=== PATIENT | male | born 1945 | race Caucasian/White ===

== ENCOUNTER 2024-10-06 10:51 | Outpatient (AMB) | payer MEDICARE, SELFPAY ==
--- OUTSIDE RECORDS SUMMARY | 2024-10-06 11:41 | XMS_ITS | Clinical Summary ---
Author Organization [facility] [employer] [facility] lin Address [address] [facility] [place] [address] Care Team Providers Care Conservation Planner Name Role Phone Pcp, No Primary Care Provider [phone] Allergies No known active allergies Medications ramipriL (ALTACE) 5 MG capsule Take 1 capsule (5 mg total) by mouth 10/18/2023 Active Social History Tobacco Use Types Packs/Day Years Used Date Smoking Tobacco: Never Smokeless Tobacco: Never Tobacco Cessation:Counseling Given: Not Answered Sex and Gender Information Value Date Recorded Sex Assigned at Not on file Legal Sex Male 8:33 AM EST Gender Identity Not on file Sexual Orientation Not on file Last Filed Vital Signs Vital Sign Reading Time Taken Comments Blood Pressure 122/78 06/13/2024 9:08 AM EST Pulse 98 06/13/2024 9:08 AM EST Temperature 35.8 ??C (96.4 ??F) 06/13/2024 9:08 AM ES T Respiratory Rate 16 06/13/2024 9:08 AM EST Oxygen Saturation 99% 06/13/2024 9:08 AM EST Inhaled Oxygen Concentration - - Weight 109 kg (240 lb) 06/13/2024 9:08 AM EST Height 182.9 cm (6') 06/13/2024 9:08 AM EST Body Mass Index 32.55 06/13/2024 9:08 AM EST Plan of Treatment Health Maintenance Due Date Last Done Comments Depression: Screening Annual ly using PHQ-2/9 in Adults 18 yrs or above (or HM Modifier)([facility]) 12/28/1963 SDOH Screening Reminder: Adriana torres for all adults ([facility]) [birth year]28/1963 Zoster/Shingles Vaccine Seri es Screening: Adults aged 18+ yrs (or HM Modifiers)([facility]) (1 of 2) 12/28/1993 RSV Vaccines (1 - 1-dose 75+ series) 12/28/2018 COVID-19 Vaccine Screening: Initial Series and Booster Status ([facility]) ( - 2023- season) 2024 07/16/2020, 06/25/2020 Flu Vaccination: Ages 65+: Y early High Dose Recommended (or Modifier)([facility]) 12/08/2024 05/15/2022, 03/06/2019, 02/14/2018, Additional history exists DTaP/Tdap/Td Vaccines ([facility]) (3 - Td or Tdap) 09/23/2030 09/23/2020, 10/22/2010 Pneumococcal Vaccination Screening: Patients 50+ yrs of age ([facility]) Completed 12/26/2015, 10/22/2010 Medical Devices Not on file Care Teams Conservation Planner Relationship Specialty Start Date End Date Pcp, No PCP - General Family Medicine 06/13/24
--- NOTE | 2024-10-06 11:46 | A.SPINEOV_ITS ---
Intake Visit Reasons: parasthesia of both hands Intake Note: Mr. Mendoza is here today c/o neck pain and possible carpal tunnel. Neurophysiology Tech Required: No Assessment & Plan Assessment & Plan (1) Cervical spondylosis with myelopathy: Code(s): M47.12 - Other spondylosis with myelopathy, cervical region Category: Medical Plan: Dear colleague Thank you for referring Manuel Mendoza to the office today with a chief complaint of progressive bilateral hand numbness. HPI: This 78-year-old male is coming in complaining of predominantly right- sided hand numbness. Specifically has constant numbness of his fingertips and tingling in the palm of his hand that starts at the hand and then radiates up to his forearm and upper arm. He drops objects. This started approximately 6-8 months ago. The left side is starting as well. He denies neck pain. He is status post anterior diskectomy and fusion in the past for cervical myelopathy and carpal tunnel release bilaterally. On further questioning, he does have increasing balance problems and intermittent numbness under his feet. An EMG w as done that shows carpal tunnel syndrome of the right hand. He also mentioned polyneuropathy. PMH: Hypertension, cholecystectomy, bilateral carpal tunnel release, cervical fusion. Medications: Ramipril Allergies: NKDA Social history: . Lives with his . 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 Nonsmoker Physical Exam: Pleasant male. There is hypoesthesia of all the fingertips on the right side. Tinel is negative. Wrist flexion produces tingling in the wrist region. Motor exam is 5/5 throughout. No pathological reflexes Radiological Studies: None available Impression/Plan: This 78-year-old gentleman is suffering from progressive hand numbness with the right side is more affected than the left side. Differential diagnosis is carpal tunnel versus cervical myelopathy. I would like to obtain an MRI of the cervical spine based on his history to rule out spinal cord compression. If this comes back negative then we would do a re-exploration of the median nerve on the right side. Thank you for allowing me to participate in your patients care. total time spent was 50 minutes in counseling ,coordination of plan, personal review of imaging, surgical decision making and subsequent plan Malik Cevallos MD, PhD Spine Fellowship Trained Neurosurgeon Director, [facility] [place] [facility] Orders: Orders MR cervical spine wo con Today M47.12 - Other spondylosis with myelopathy, cervical region Coding Level of Care Code New Pt Level 4 (50116) Diagnoses Cervical spondylosis with myelopathy M47.12
== END 2024-10-06 12:07 | disposition home or self-care (01) ==
LOC: HO.HNS 10:51
PROVIDERS: Visit Provider Neurological Surgery
DX: M47.12 Other spondylosis with myelopathy, cervical region (principal)
CPT/HCPCS: 99204

== ENCOUNTER → 2024-10-06 10:51 | Outpatient (BNVA) | payer MEDICARE, SELFPAY | PROVIDERS: Visit Provider Neurological Surgery | DX: M47.12 Other spondylosis with myelopathy, cervical region (principal) | CPT/HCPCS: 99202 ==

== ENCOUNTER 2024-10-27 12:56 | Outpatient (REF) | payer MEDICARE, SELFPAY ==
--- NOTE | ~2024-10-27 | MR_ITS ---
EXAM: MR cervical spine without contrast TECHNIQUE: Multiplanar multisequence imaging through the cervical spine was performed from the base of the skull through at least T1. INDICATION: Spondylosis with myelopathy PRIOR: None FINDINGS: Skull Base: There is no tonsillar ectopia. Cranialcervical junction is intact. Cord: There is no abnormal cord signal or hydrosyringomyelia. Marrow and end-plates: Metal hardware is noted anteriorly fusing C4-5 and C5-6. Alignment: C4-5 demonstrates grade 1 anterolisthesis. There is reversal cervical lordosis. Soft tissues: There are joint effusions in the facets of C3-4 with adjacent soft tissue edema, greater on the left. There is a subchondral degenerative cyst in the left inferior facet of C2 and adjacent left superior facet C3 C2-3: There is no disc bulge, herniation, spinal stenosis, or foraminal narrowing. C3-4: Anterolisthesis results in flattening of the ventral cord and moderate spinal stenosis. There is moderate right and moderate to severe left foraminal narrowing. C4-5: Surgically fused. No spinal stenosis or foraminal narrowing. C5-6: Surgically fused with mild bony spinal stenosis. Facet osteophytes subtly narrows the right neural foramen. Osteophytes moderately narrow the left. C6-7: Mild disc bulge does not narrow the spinal canal. There is no foraminal narrowing. C7-T1: There is no disc bulge, herniation, spinal stenosis, or foraminal narrowing. MR/MR cervical spine wo con IMPRESSION: Anterior fusion C3-4 and C4-5. There is evidence of facet arthropathy and synovitis on the left at C2-3. Reversal cervical lordosis could be related to degenerative disc disease, positioning, idiopathic, or muscle spasms. C3-4: Anterolisthesis results in flattening of the ventral cord and moderate spinal stenosis. There is moderate right and moderate to severe left foraminal narrowing. C5-6: Surgically fused with mild bony spinal stenosis. Osteophytes moderately narrows the left neural foramen. Electronically signed by: Brian Reece MD 10/27/2024 03:16 PM EDT
--- NOTE | ~2024-10-27 | XR_ITS ---
EXAM: Three-view orbits, x-ray Technique: Kelly view x-rays, upward gaze and downward gaze and lateral view Indication: MRI screening for metal. Prior: None FINDINGS: There is no sign of of an intraorbital or intracranial metallic foreign body Dental hardware is present. XR/XR pre mri screening IMPRESSION: There is no absolute contraindication to MRI apparent on the x-ray. Electronically signed by: Brian Reece MD 10/27/2024 01:33 PM EDT
--- OUTSIDE RECORDS SUMMARY | 2024-10-27 12:58 | XMS_ITS | Clinical Summary ---
Author Organization [facility] [employer] [facility] lin Address [address] [facility] [place] [address] Care Team Providers Care Ferryboat Operator Cable Name Role Phone Pcp, No Primary Care Provider [phone] Allergies No known active allergies Medications ramipriL [...] 98 06/13/2024 9:08 AM EST Temperature 35.8 C (96.4 F) 06/13/2024 9:08 AM EST Respiratory Rate 16 06/13/2024 9:08 AM EST [...] Adults 18 yrs or above (or HM Modifier)([facility]) 12/28/1963 SDOH Screening Reminder: Adriana torres for all adults ([facility]) 12/28/1963 Zoster/Shingles Vaccine Seri es Screening: Adults aged 18+ yrs (or HM Modifiers)([facility]) (1 of 2) 12/28/1993 RSV Vaccines (1 - 1-dose 75+ series) 12/28/2018 COVID-19 Vaccine Screening: Initial Series and Booster Status ([facility]) ( - 2023- season) 2024 07/16/2020, 06/25/2020 Flu Vaccination: Ages 65+: Y early High Dose Recommended (or Modifier)([facility]) 12/08/2024 05/15/2022, 03/06/2019, 02/14/2018, Additional history exists DTaP/Tdap/Td Vaccines ([facility]) (3 - Td or Tdap) 09/23/2030 09/23/2020, 10/22/2010 Pneumococcal Vaccination Screening: Patients 50+ yrs of age ([facility]) Completed 12/26/2015, 10/22/2010 Medical Devices Not on file Care Teams Ferryboat Operator Cable Relationship Specialty Start Date End Date Pcp, No PCP - General Family Medicine 06/13/24
== END 2024-10-27 12:57 | disposition home or self-care (01) ==
LOC: HO.MRI 12:56
PROVIDERS: Visit Provider Neurological Surgery
DX: M17.12 Unilateral primary osteoarthritis, left knee (principal)
CPT/HCPCS: 72141; 99212

== ENCOUNTER → 2024-10-27 12:59 | Outpatient (BNV) | payer MEDICARE, SELFPAY | PROVIDERS: Visit Provider Radiology Diagnostic Radiology | DX: M43.12 Spondylolisthesis, cervical region (principal) | CPT/HCPCS: 72050; 72141 ==

== ENCOUNTER 2024-10-27 15:02 | Outpatient (AMB) | payer MEDICARE, SELFPAY ==
--- NOTE | 2024-10-27 15:11 | HO.SPINEOV ---
Intake Visit Reasons: f/up MRI Intake Note: Mr. Kelly Conley is here today to F/u after MRI. Physician Obstetrician Required: No Assessment & Plan Assessment & Plan (1) Cervical spondylosis with myelopathy: Code(s): M47.12 - Other spondylosis with myelopathy, cervical region Category: Medical Plan: Dear colleague, On 10/27/2024, I saw for follow-up Manuel Mendoza to discuss MRI results of the cervical spine. In summary, this patient is suffering from neck pain and progressive bilateral hand numbness with the right side is more affected than the left side. The left side is getting worse. He has constant numbness of his fingertips and when he puts his neck in certain positions he can aggravate the numbness in his hands going up his arms. He did have bilateral carpal tunnel release in the past. He is now also complaining of numbness under his feet that started a month ago. He had an MRI of the cervical spine done today which shows the anterolisthesis C3-C4 causing a cervical deformity and moderate spinal cord compression. A dynamic cervical x-ray obtained today shows the anterolisthesis C3-C4 above the previous C4-C6 fusion, which reduces with extension. This patient is suffering from cervical myelopathy related to the anterolisthesis with spinal cord compression C3-C4. I offered him an anterior diskectomy and fusion of this level. I spent 40 minutes in his consult reviewing imaging and discussing plan of care. Malik Cevallos MD, PhD Spine Fellowship Trained Neurosurgeon Director, [facility] [place] [facility] Orders: Orders XR cervical spine 4V Today M47.12 - Other spondylosis with myelopathy, cervical region Coding Level of Care Code Est Pt Level 5 (22477) Diagnoses Cervical spondylosis with myelopathy M47.12
== END 2024-10-27 16:02 | disposition home or self-care (01) ==
PROVIDERS: Visit Provider Neurological Surgery
DX: M47.12 Other spondylosis with myelopathy, cervical region (principal)
CPT/HCPCS: 99215

== ENCOUNTER 2024-10-27 15:33 | Outpatient (REF) | payer MEDICARE, SELFPAY ==
--- NOTE | ~2024-10-27 | XR_ITS ---
EXAMINATION: XR CERVICAL SPINE CLINICAL INFORMATION: M47.12 - Other spondylosis with myelopathy, cervical region COMPARISON: None available. FINDINGS: There is mild reversal of the normal cervical lordosis. No fractures are identified. There is no prevertebral soft tissue swelling. There is anterior fusion of C4-5 and C5-6. There is limited motion on extension. C2-3: Unremarkable. Facet sclerosis and osteophytes. C3-4: There is grade 1 anterolisthesis without instability. Facet sclerosis and osteophytes. C4-5: Fused. Facet sclerosis and osteophytes. C5-6: Fused. Minimal facet osteophytes. C6-7: No instability C7-T1: Unremarkable. XR/XR cervical spine 4V IMPRESSION: There is mild reversal of cervical lordosis. This can be related to degenerative changes, positioning, muscle spasm, or posterior soft tissue injury. C3-4: Grade 1 anterolisthesis without instability. C4-5 and C5-6 anterior fusion. Electronically signed by: Brian Reece MD 10/27/2024 04:27 PM EDT
== END 2024-10-27 15:34 | disposition home or self-care (01) ==
LOC: HO.HOSX 15:33
PROVIDERS: Visit Provider Neurological Surgery
DX: M47.12 Other spondylosis with myelopathy, cervical region (principal)
CPT/HCPCS: 72050

== ENCOUNTER → 2024-11-14 13:50 | Outpatient (BNV) | payer MEDICARE, SELFPAY | PROVIDERS: Visit Provider Internal Medicine Cardiovascular Disease | DX: I44.0 Atrioventricular block, first degree (principal) | CPT/HCPCS: 93010 ==

== ENCOUNTER 2024-12-07 09:42 | Outpatient (AMB) | payer MEDICARE, SELFPAY ==
[2024-12-07 09:53] VITALS: BP 124/68; PULSE 68; BMI 31.6
--- NOTE | 2024-12-07 09:53 | A.OFFVIS_ITS ---
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 He underwent a preoperative EKG that showed concern for inferior infarction and hence he has been referred here. Patient himself denies any previous cardiac history. No known coronary disease, myocardial infarction or cardiomyopathy or in fact anything along those lines. 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 Within limits of his activity, he has not noticed any clear-cut cardiac symptoms. Has hypertension on medications. He is walking with a cane. [facility] Medical History (Updated 12/07/24 @ 10:23 by Bar Hooper MD) CKD (chronic kidney disease) Arthritis HTN (hypertension) Surgical History (Updated 11/14/24 @ 13:12 by Lawanda Miller RN) Hx of arthroscopic knee surgery Hx of cholecystectomy Hx of cervical spine surgery History of bilateral carpal tunnel release History of right knee joint replacement H/O colonoscopy Family History (Updated 12/07/24 @ 09:59 by Paige Chamberlain) Mother No problems noted. Father No problems noted. Social History (Updated 12/07/24 @ 10:00 by Paige Chamberlain) Are you a primary patient care manager to a significant other at home: No Do you presently have visiting nurse or other home services: No Alcohol intake: never Patient Tobacco Use Status: Never used Tobacco Review of Systems Const Denies weakness ENT Denies dizziness Card Denies chest pain, Denies chest pain with activity, Denies syncope, Denies rapid heart rate, Denies pedal edema, Denies edema, Denies leg edema, Denies lightheadedness, Denies palpitations, Denies dyspnea, Denies dyspnea on exertion and Denies orthopnea Resp Denies cough, Denies dyspnea and Denies dyspnea on exertion GI Denies hematochezia and Denies change in stool character Musc Denies abnormal gait, Denies muscle cramps, Denies muscle weakness, Denies numbness, Denies radiating pain into limb and Denies tingling Neuro Denies abnormal gait, Denies dizziness, Denies syncope, Denies numbness, Denies tingling and Denies weakness Endo Denies palpitations Physical Exam Vital Signs: Last Vital Signs Pulse 68 12/07/24 09:53 BP 124/68 12/07/24 09:53 BMI result Body Mass Index 31.6 Const General: comfortable and no acute distress Orientation/consciousness: patient oriented x3 HEENT Other: Unremarkable Head: Yes normal to inspection Neck Neck: Yes normal visual inspection Chest Chest palpation & inspection: normal inspection of the chest Resp Auscultation: clear to auscultation bilaterally Cardio Palpation: normal PMI Heart sounds: S1 normal heart sound present, S2 normal heart sound present, no gallops, no murmurs and no rubs GI Palpation (GI): Soft to palpation Back/Spine/Pelvis Other: unremarkable Skin General skin exam: no rashes or lesions noted Neuro General: patient oriented x3 Extrem General: Yes normal to inspection Psych Mental Status: mental status grossly normal Assessment & Plan Assessment & Plan (1) Preoperative cardiovascular examination: Code(s): Z01.810 - Encounter for preprocedural cardiovascular examination Category: Medical (2) Abnormal electrocardiogram [ECG] [EKG]: Code(s): R94.31 - Abnormal electrocardiogram [ECG] [EKG] Category: Medical Plan In the recent EKG, underlying rhythm is sinus at 86/Min; cannot exclude old inferior infarct; prolonged FL at 212 milliseconds; normal corrected QT. EKG findings could be related to just body habitus, but cannot exclude previous infarct either. Recommend an echocardiogram and pharmacological stress perfusion imaging study for further evaluation. He is not going to be able to exercise on the treadmill as he is walking with a cane. Once these are reviewed, can make an addendum. Discussion Notes I discussed with the patient the need for further cardiac evaluation to ensure safe surgical intervention for his cervical radiculopathy. We reviewed the EKG findings and the plan for a heart ultrasound and stress test to clarify any potential cardiac issues. The patient was informed about the importance of managing hypertension and monitoring for any new symptoms. Patient was informed and verbally consented to the use of an ambient scribe for clinic note documentation during this visit. Orders: Orders CA echo transthoracic complete Today R94.31 - Abnormal electrocardiogram [ECG] [EKG], Z01.810 - Encounter for preprocedural cardiovascular examination CA lexiscan stress w joe Today R94.31 - Abnormal electrocardiogram [ECG] [EKG], Z01.810 - Encounter for preprocedural cardiovascular examination NM cardiolite stress test Today R94.31 - Abnormal electrocardiogram [ECG] [EKG], Z01.810 - Encounter for preprocedural cardiovascular examination Patient Instructions: - Continue taking your blood pressure medication as prescribed. - Monitor for any new symptoms, especially chest pain or shortness of breath, and seek medical attention if they occur. - Follow up with the scheduled heart ultrasound and stress test. Coding Level of Care Code New Pt Level 4 (87455) Complex EM visit Add On G2211 Diagnoses Preoperative cardiovascular examination Z01.810 Abnormal electrocardiogram [ECG] [EKG] R94.31
--- OUTSIDE RECORDS SUMMARY | 2024-12-07 10:09 | XMS_ITS | Clinical Summary ---
Author Organization [facility] Address [address] [place] [address] Care Team Providers Care Relocation Specialist Name Role Phone Nazario Silva Primary Care Provider [phone] Allergies No known active allergies Medications * This document contains information received from the source organization and may not represent a complete record from that organization. No known medications Immunizations Immunization Administration Dates Next Due COVID-19, mRNA (Pfizer Pre F all 2022) Monovalent, 30 mcg/0.3 ml 07/16/2020,06/25/2020 Influenza,high dose seasonal,trivalent,PF (Fluzone HD) 03/06/2019,02/14/2018,07/01/2016,2014 PCV-13 12/26/2015 Td (adult), adsorbed 09/23/2020 Social History Tobacco Use Types Packs/Day Years Used Date Smoking Tobacco: Never Smokeless Tobacco: Never Tobacco Cessation:Counseling Given: Not Answered Alcohol Use Standard Drinks/Week Comments Not Asked 0 (1 standard drink = 0.6 oz pur e alcohol) Intimate Partner Violence Answer Date R ecorded Fear of Current or Ex-Partner Not on file Emotionally Abused Not on file 12/28/2022 Physically Abused Not on file 12/28/2022 Sexually Abused Not on file 12/28/2022 Feel Safe at Home Not on file 12/28/2022 Sex and Gender Information Value Date Recorded Sex Assigned at Not on file Legal Sex Male 8:08 PM EDT Gender Identity Not on file Sexual Orientation Not on file Last Filed Vital Signs Vital Sign Reading Time Taken Comments Blood Pressure 122/72 06/16/2022 10:23 AM EST Pulse 115 06/16/2022 10:23 AM EST Temperature - - Respiratory Rate - - Oxygen Saturation 99% 12/01/2021 8:09 AM EDT Inhaled Oxygen Concentration - - Weight 107 kg (235 lb) 06/16/2022 10:23 AM EST Height 177.8 cm (5' 10 ) 06/16/2022 10:23 AM EST Body Mass Index 33.72 06/16/2022 10:23 AM EST Plan of Treatment Health Maintenance Due Date Last Done Comments Zoster (Shingrix) (1 of 2) 12/28/1993 Pneumococcal 50+ years (2 of 2 - PCV20 or PCV21) 12/25/2016 12/26/2015 RSV (1 - 1-dose 75+ series) 12/28/2018 DTaP/Tdap/Td (1 - Tdap) 09/24/2020 09/23/2020 COVID-19 Vaccine (3 - season) 2024 07/16/2020, 06/25/2020 Influenza (#1) 2025 03/06/2019, 100 12/2017, 07/01/2016, Additional history exists HPV Vaccine (No Doses Required) Completed Hep A Aged Out No longer eligi ble based on patient's age to complete this topic Hep B Aged Out No longer eligi ble based on patient's age to complete this topic Hib Aged Out No longer eligi ble based on patient's age to complete this topic Meningococcal ACWY Aged Out No longer eligible based on patient's age to complete this topic Zoster (Zostavax) Discontinued Care Teams Relocation Specialist Relationship Specialty Start Date End Date Nazario Silva [facility] [place] [place] [address] PCP - General 07/08/09
--- OUTSIDE RECORDS SUMMARY | 2024-12-07 10:09 | XMS_ITS | Referral Summary ---
Author Organization [facility] Address [address] [place] [address] Care Team Providers [employer] Person Name Role Phone Luisa Otoole DO, Diana Primary Care Provider + Encounters Date Type Department Care Team Description 11/15/2024 7:51 AM EDT - 11/15/2024 11:59 PM EDT Hospital Encounter [facility] [address] [place] [address] Abnormal CAT scan Discharge Disposition: Home or Self Care (01) 11/15/2024 9:00 AM EDT Office Visit [facility] Orthopedic Department [address] [facility] [address] [place] [address] New Garcia MD Abnormal CT scan, pelvis (Primary Dx) 11/13/2024 Orders Only [address] Department [address] [place] [phone] Luisa Poonam V, DO Abnormal CAT scan (Primary Dx); Pain of left hip 11/13/[address] Practice Department [address] [place] [address] Luisa Poonam V, DO Follow-up 11/09/2024 11:00 AM EDT Follow-Up [address] Department [address] [place] [phone] Karlee Crump NP Hyperkalemia (Primary Dx); Bilateral hip pain; Abnormal CT scan, pelvis; 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) 11/06/2024 Telephone [facility] 255 [facility] Department [address] [place] [phone] Poonam Solis DO Request For Order(s) 09/19/[address] Department [address] [place] [phone] Poonam Solis DO 09/19/2024 11:00 AM EDT Office Visit [address] Department [address] [place] [address] Poonam Solis DO Medicare annual wellness visit, subsequent (Primary Dx); 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 8 capsule 5 Active Additional Information Patient not taking.Reported on 11/15/2024 ramipriL (ALTACE) 5 mg capsule TAKE 1 CAPSULE BY MOUTH ONCE DAILY 90 capsule 3 5 Active oxyCODONE (OXY-IR) 5 mg capsule Take 5 mg by mouth every 6 hours as needed for pain. 5 Active Active Problems Problem Noted Date Diagnosed Date Hyperkalemia 11/09/2024 Assessment & Plan (11/09/2024 1:46 PM EDT): ER records reviewed - k 5.2 - repeat basic Bilateral hip pain 11/09/2024 Assessment & Plan (11/09/2024 1:45 PM EDT): Seen at [facility] ER and admitted for abnormal CT concern for septic arthritis left hip, left hospital with 5 day supply of Oxycodone and advised to follow up with Ortho and have IR procedure, left hospital AMA, will request Urgent referral for Ortho at [facility] per patient request and advised to return to the ER with any worsening pain, fever or chills. Continues with Oxycodone for the pain. Abnormal CT scan, pelvis 11/09/2024 Assessment & Plan (11/09/2024 1:42 PM EDT): Admitted to [facility] ER and transferred to [facility] ER for back and hip pain, CT scan noted complex fluid collection in the right iliopsoas bursa with concern for septic hip with plan for inpatient IR procedure, WBC were not elevated, BP normal, was not admitted with sepsis, per patient he left AMA. Will request consult with Ortho at [facility] Urgently, discuss with Dr. Solis IR procedure and advised patient and if he has worsening back and hip pain, fever, chills to return to ER. Near syncope 09/30/2023 Assessment & Plan (07/10/2024 5:21 PM EST): Hx of near syncope, dehydration episode 09/2023. Discussed increasing oral hydration, PO intake. If symptoms return, discussed needing cardio and neuro workup. No recurrence of symptoms. Assessment & Plan (11/25/2023 4:17 PM EDT): Hx of near syncope, dehydration episode 09/2023. Discussed increasing oral hydration, PO intake. If symptoms return, discussed needing cardio and neuro workup. No recurrence of symptoms. Assessment & Plan (09/30/2023 9:34 AM EDT): Discussed increasing oral hydration, PO intake. If symptoms return, discussed needing cardio and neuro workup. Alarm signs and symptoms reviewed and when to seek emergency care. At low risk for fall 09/28/2023 Keratosis seborrheica 09/28/2023 Macrocytosis 09/28/2023 Other intervertebral disc degeneration, lumbar r egion 09/28/2023 Otic erythema 09/28/2023 Stiffness of right knee 09/28/2023 Anemia 05/27/2023 Benign prostatic hyperplasia 05/27/2023 Greater trochanteric bursitis of left hip 2023 Myofascial pain 05/27/2023 Elevated ferritin level 05/27/2023 Assessment & Plan (09/29/2024 4:31 PM EDT): Hx of elevated ferritin level, trending up at 853. Was referred to hematology for further management. Assessment & Plan (07/10/2024 5:21 PM EST): Hx of elevated ferritin level, trending up at 853. Was referred to hematology for further management. Assessment & Plan (11/25/2023 9:32 AM EDT): Hx of elevated ferritin level, trending lower. Continue to monitor. Assessment & Plan (09/30/2023 9:37 AM EDT): Hx of elevated ferritin level, trending lower. Continue to monitor. Assessment & Plan (05/27/2023 5:31 PM EST): Hx of elevated ferritin level. Recheck to trend along with iron studies. Hyperlipidemia 05/27/2023 Benign hypertension with stage 3b chronic kidney disease 05/27/2023 Assessment & Plan (09/29/2024 4:31 PM EDT): BP elevated. Home BP monitoring recommended. Continue ramipril 5 mg daily. Low sodium diet and regular exercise reviewed. We discussed if he were to dehydrated from a respiratory infection or other process to hold ramipril to prevent further dehydration. Nephrology referral. BP check in 3 months. Orders: Ambulatory referral to Nephrology; Future Assessment & Plan (09/19/2024 1:11 PM EDT): >>ASSESSMENT AND PLAN FOR BENIGN HYPERTENSION WITH STAGE 3B CHRONIC KIDNEY DISEASE (HCC) WRITTEN ON 07/10/2024 5:21 PM BY POONAM SOLIS V, DO BP stable. Continue ramipril 5 mg daily. Low sodium diet and regular exercise reviewed. We discussed if he were to dehydrated from a respiratory infection or other process to hold ramipril to prevent further dehydration. Orders: Microalbumin / creatinine, urine ratio (Lab Collect); Future Hemoglobin A1c; Future PTH, intact; Future >>ASSESSMENT AND PLAN FOR KIDNEY DISEASE, CHRONIC, STAGE III (MODERATE, EGFR 30- 59 ML/MIN) ([facility]) WRITTEN ON 07/10/2024 5:21 PM BY POONAM SOLIS V, DO Increasing renal impairement. GFR is 36, Cr baseline ~1.5. Recommend maintaining adequate hydration, avoid nephrotoxic agents. BP is well controlled. Continue ACEi. Referral to service car operator. Orders: Microalbumin / creatinine, urine ratio (Lab Collect); Future Basic metabolic panel; Future Hemoglobin A1c; Future PTH, intact; Future Assessment & Plan (09/19/2024 1:11 PM EDT): >>ASSESSMENT AND PLAN FOR BENIGN HYPERTENSION WITH STAGE 3B CHRONIC KIDNEY DISEASE ([facility]) WRITTEN ON 11/25/2023 9:28 AM BY POONAM SOLIS V, DO BP stable. Continue lisinopril 5 mg daily. Low sodium diet and regular exercise reviewed. >>ASSESSMENT AND PLAN FOR KIDNEY DISEASE, CHRONIC, STAGE III (MODERATE, EGFR 30- 59 ML/MIN) ([facility]) WRITTEN ON 11/25/2023 4:18 PM BY POONAM SOLIS V, DO Increasing renal impairement. GFR is 36, Cr baseline ~1.5. Recommend maintaining adequate hydration, avoid nephrotoxic agents. BP is well controlled. Continue ACEi. Referral to service car operator. Assessment & Plan (09/19/2024 1:11 PM EDT): >>ASSESSMENT AND PLAN FOR BENIGN HYPERTENSION WITH STAGE 3B CHRONIC KIDNEY DISEASE (HCC) WRITTEN ON 09/30/2023 9:34 AM BY POONAM SOLIS V, DO BP stable. Continue lisinopril 5 mg daily. Low sodium diet and regular exercise reviewed. >>ASSESSMENT AND PLAN FOR KIDNEY DISEASE, CHRONIC, STAGE III (MODERATE, EGFR 30- 59 ML/MIN) ([facility]) WRITTEN ON 09/30/2023 9:36 AM BY POONAM SOLIS V, DO Encourage hydration. Cr 1.5 at baseline. Continue to monitor. Assessment & Plan (05/27/2023 5:30 PM EST): BP stable. Continue lisinopril 5 mg daily. Low sodium diet and regular exercise reviewed. Labs ordered. BP check in 6 months. 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 Assessment & Plan (05/27/2023 5:32 PM EST): Diet and exercise modifications reviewed. Prediabetes 05/27/2023 Primary osteoarthritis of left hip 05/27/2023 S/P arthroscopy of right knee 05/27/2023 Primary osteoarthritis of left knee 05/27/2023 Statin intolerance 05/27/2023 Chronic cervical radiculopathy 05/27/2023 Stenosis, cervical spine 05/27/2023 Urethral stricture 05/27/2023 Abnormal urine findings 05/27/2023 Fibrosis of right knee joint 05/27/2023 Heterotopic calcification, postoperative 024 Carpal tunnel syndrome 06/20/2013 Resolved Problems Problem Noted Date Diagnosed Date Resolved Date Trapezius muscle spasm 09/28/202311/09 Rhinorrhea 09/28/2023 11/09/2024 Chronic pain of right knee 05/27/2023 0 05/27/2023 Constipation 05/27/2023 05/27/2023 Immunizations Immunization Administration Dates Next Due Influenza, High Dose Seasona l, Preservative Free 03/06/2019,02/14/2018,07/01/2016,03/01 Influenza, High Dose Seasona l, Quadrivalent PF 05/15/2022 Influenza, Unspecified 03/06/2019,2017,07/01/2016,03/01,03/01/2015,04/13/2014,05/25/2013 Pneumococcal Conjugate Vacci ne, 13 Valent 12/26/2015 Pneumococcal Polysaccharide Vaccine, 23 Valent 10/22/2010 Tetanus Toxoid, Reduced Diph theria Toxoid, and Acellular Pertussis Vaccine, Adsorbed 10/22/2010 Tetanus and Diphtheria Toxoi ds, Adsorbed, Preservative Free (2 Lf of Tetanus Toxoid and 2 Lf of Diphtheria Toxoid) 09/23/2020 Social History Tobacco Use Types Packs/Day Years Used Date Smoking Tobacco: Never Passive Smoke Exposure: Never Smokeless Tobacco: Never Tobacco Cessation:Counseling Given: Not Answered Comments:: Alcohol Use Standard Drinks/Week Comments Yes 0 (1 standard drink = 0.6 oz pur e alcohol) [facility] Utilities Answer Date Recorded In the past 12 months has th e [employer], gas, oil, or water [employer] threatened to shut off services in your home? No 07/10/2024 Hunger Vital Sign Answer Date Recorded Within the past 12 months, y ou worried that your food would run out before you got the money to buy more. Never true 07/11/19 25 Within the past 12 months, t he food you bought just didn't last and you didn't have money to get more. Never true 07/10/2024 Transportation Answer Date Recorded In the past 12 months, has l ack of reliable transportation kept you from medical appointments, meetings, work or from getting things needed for daily living? No 07/10/2024 Housing Answer Date Recorded Housing Risk Low 2 07/10/2024 Housing Risk Medium Not on file 07/10/2024 Housing Risk High Not on file 07/10/2024 What is your living situation today? [facility]AD[facility] 07/10/2024 Sex and Gender Information Value Date Recorded Sex Assigned at Male 05/18/2023 3:00 PM EST Legal Sex Male 12:13 AM EDT Gender Identity Male 05/31/2023 8:46 AM EST Sexual Orientation Not on file Last Filed Vital Signs Vital Sign Reading Time Taken Comments Blood Pressure 132/64 11/15/2024 9:09 AM EDT Pulse 75 11/09/2024 10:35 AM EDT Temperature 36.6 C (97.8 F) 11/15/2024 9:09 AM EDT Respiratory Rate - - Oxygen Saturation 97% 11/09/2024 10: 35 AM EDT Inhaled Oxygen Concentration - - Weight 106.1 kg (233 lb 12.8 oz) 11/15/2024 9:09 AM EDT Height 177.8 cm (5' 10 ) 11/09/2024 10: 35 AM EDT Body Mass Index 33.55 11/09/2024 10:35 AM EDT Plan of Treatment Upcoming Encounters Date Type Department Care Team (Late st Contact Info) Description 12/22/2024 10:00 AM EDT Follow-Up [facility] 255 [facility] Family Practice Department [address] [place] [address] Poonam Solis V, DO [address] [place] [address] Procedures * Due to [place] state law, this organization might not be sharing negative HIV tests. Procedure Name Priority Date/Time Associated Diagnosis Comments XR HIP LEFT 2+ VIEW W PELVIS Routine 11/15/2024 9:[address] scan, pelvis US GUIDED ASPIRATION OR INJECTION OF MAJOR JOINT OR BURSA STAT 11/15/2024 8:49 AM EDT Abnormal CAT scan NON-GYNECOLOGIC CYTOLOGY - [place] ONLY Routine 11/15/2024 8:49 AM EDT Abnormal CAT scan CRYSTALS, SYNOVIAL FLUID Routine 11/15/2024 8:49 AM EDT Abnormal CAT scan CELL COUNT W/DIFFERENTIAL, SYNOVIAL Routine 11/15/2024 8:49 AM EDT Abnormal CAT scan (DO NOT ORDER) ANAEROBIC CULTURE-QML Routine 11/15/2024 8:49 AM EDT Abnormal CAT scan AEROBIC CULTURE W/GRAM STAIN Routine 11/15/2024 8:49 AM EDT Abnormal CAT scan AEROBIC AND ANAEROBIC CULTURE W/GRAM STAIN Routine 11/15/2024 8:49 AM EDT Abnormal CAT scan MYCOBACTERIA/AFB CULTURE AND STAIN Routine 11/15/2024 8:49 AM EDT Abnormal CAT scan FUNGUS CULTURE W/STAIN Routine 11/15/2024 8:49 AM EDT Abnormal CAT scan PATHOLOGY - SCANNED 11/15/2024 EMG/ NCS/ NEUROMUSCULAR ULTRASOUND Routine 09/06/2024 9:35 AM EDT Numbness and tingling MICROALBUMIN, RANDOM URINE WITH CREATININE Routine 07/10/2024 12:49 PM EST Hypertension, unspecified type Stage 3b chronic kidney disease VITAMIN D, 25-HYDROXY, TOTAL, IMMUNOASSAY Routine 07/10/2024 11:44 AM EST Vitamin D deficiency PTH, INTACT (WITHOUT CALCIUM) Routine 07/10/2024 11:44 AM EST Hypertension, unspecified type Stage 3b chronic kidney disease BASIC METABOLIC PANEL Routine 07/10/2024 11:44 AM EST Stage 3b chronic kidney disease PHOSPHORUS Routine 11/25/2023 10:40 AM EDT Stage 3b chronic kidney disease CBC AUTO DIFFERENTIAL Routine 06/29/2023 8:54 AM EST Hyperlipidemia, unspecified hyperlipidemia type Healthcare maintenance from Last 3 Months or Most Recently Relevant to Health Maintenance Results * Due to [place] state law, this organization might not be sharing negative HIV tests. * XR Hip Left 2+ View W Pelvis (11/15/2024 9:17 AM EDT) Anatomical Region Laterality Modality Body, Pelvis, Hip Left Radiographic I maging Narrative 11/15/2024 2:07 PM EDT An AP pelvis and AP and lateral of his left hip looking at these films I see quite a bit of end-stage left-sided hip osteoarthritis with with the femoral head abutting up against the the acetabulum and peripheral osteophytes about the the femoral head you see this to a lesser degree over the of the right side on his lower lumbar spine you also see some significant osteophytes are most suggestive for flowing osteophytes consistent with potentially ankylosing spondylitis but I do not see that much in the way of sclerosis over his sacrum or iliac joints us New Garcia MD IMG XR PROCEDURES Final Re sult * US Guided Aspiration or Injection of Major Joint or Bursa (11/15/2024 8:49 AM EDT) Anatomical Region Laterality Modality Body N/A Ultrasound 11/15/2024 12:4 3 PM EDT Impressions 11/15/2024 12:45 PM EDT Impression: Completed US-guided aspiration of left hip fluid collection (iliopsoas bursa). No immediate compilations. If this radiology report contains a blank impression section, it is an incomplete radiology report. Please contact the interpreting radiologist or applicable radiology division as soon as possible to obtain the completed interpretation. Workstation ID: [id number] Narrative 11/15/2024 12:45 PM EDT Examination: Ultrasound-guided aspiration of left hip collection. History: Left hip fluid collection surrounding on outside CT. [employer] Level Game Designer(s): Kiran Zambrano MD; Operative report: Preparation: Procedure, risks, benefits alternatives were discussed with patient and written informed consent was obtained. Time-out was performed to verify patient identity and site of procedure. Targeting approach was finalized, the local area was prepped and draped in the usual sterile fashion. Local anesthetic was infiltrated. Procedure: Under ultrasound guidance a 20-gauge spinal needle was advanced into the fluid collection in the left hip (iliopsoas bursa). A total of 10 mL of clear fluid were aspirated. Samples were sent for microbiology, cell count and crystals. No immediate complications ensued. Ultrasound images were recorded and permanently stored. Myself, Dr. Zambrano, was present and performed the procedure. Resulting Agency Comment [id number] Procedure Note Kiran Zambrano MD - 11/15/2024 Examination: Ultrasound-guided aspiration of left hip collection. History: Left hip fluid collection surrounding on outside CT. Mid Level Game Designer(s): Kiran Zambrano MD; Operative report: Preparation: Procedure, risks, benefits alternatives were discussed withpatient and written informed consent was obtained. Time-out was performedto verify patient identity and site of procedure. Targeting approach wasfinalized, the local area was prepped and draped in the usual sterilefashion. Local anesthetic was infiltrated. Procedure: Under ultrasound guidance a 20-gauge spinal needle was advancedinto the fluid collection in the left hip (iliopsoas bursa). A total of10 mL of clear fluid were aspirated. Samples were sent for microbiology,cell count and crystals. No immediate complications ensued. Ultrasound images were recorded and permanently stored. Myself, Dr. Zambrano, was present and performed the procedure. IMPRESSION: Impression: Completed US-guided aspiration of left hip fluid collection (iliopsoasbursa). No immediate compilations. If this radiology report contains a blank impression section, it is anincomplete radiology report. Please contact the interpreting radiologistor applicable radiology division as soon as possible to obtain thecompleted interpretation. Workstation ID: [id number] us Poonam Immenhausen V, DO IMG US PROCEDURES Final Result * Non-Gynecologic Cytology - [place] only (11/15/2024 8:49 AM EDT) Non-Gynecologic Cytology Result SEE DETAILS 11/17/2024 12:00 AM EDT [facility] Comment: FINAL DIAGNOSIS Left hip, aspiration: Negative for malignancy. Comment: The specimen is acellular, consisting of proteinaceous material. Morena Clifford M.D. Electronic Signature: 11/17/2024 09:43 Screened by: MELVINA Erickson (ASCP) Clinical History R93.89, left hip aspiration Macroscopic Description Received fresh is 1 cc of clear yellow fluid from which a liquid based cyto-preparation and cell block is made. Grossing and technical work performed at [facility] ([facility], [address] [place] [id number]; ; [id number]; CLIA #[id number]) All professional pathology services performed at [facility] ([address] [place] [id number]; ; CLIA #[id number]) Note: Some or all of the tests utilized in this case may be laboratory developed tests (LDT's) and may use class I analyte specific reagents (ASR). These tests were developed for clinical purposes and their performance characteristics determined by [facility] on tissue fixed in 10% neutral buffered formalin. Other fixatives have not been validated, and therefore results on tissue with such fixation should be interpreted with caution and in the clinical context. [facility] are qualified under the CLIA 1988 documents to provide high-complexity clinical laboratory testing. All controls are reviewed and deemed appropriate. Synovial Fluid Left hip region structure / Unknown 11/15/2024 8:49 AM EDT 11/15/2024 9:12 AM EDT Comment:Left hip aspiration us Poonam Solis V, DO LAB PATH/CYTO ([place]) Final Result Performing Organization Address City/[facility] Co de Phone Number [facility] [address] [place] [phone], * Anaerobic Culture (11/15/2024 8:49 AM EDT) Anaerobic Culture No anaerobes isolated. [facility] 11/18/2024 9:53 AM EDT [facility] Synovial Fluid Left hip region structure / Unknown 11/15/2024 8:49 AM EDT Comment:Left hip aspiration us Poonam Solis V, DO LAB MICROBIOLOGY - GENER AL ORDERABLES Final Result Performing Organization Address City/[facility] Co de Phone Number [facility] [address] [place] [phone], * Aerobic Culture w/Gram Stain (11/15/2024 8:49 AM EDT) Aerobic Culture No growth after 3 days [facility] 11/18/2024 9:53 AM EDT [facility] Gram Stain Result Few White Blood Cells Seen 11/18/2024 9:53 AM EDT [facility] Gram Stain Result Rare Red blood cells seen 11/18/2024 9:53 AM EDT [facility] Gram Stain Result No organisms seen 11/18/2024 9:53 AM EDT [facility] Synovial Fluid Left hip region structure / Unknown 11/15/2024 8:49 AM EDT Comment:Left hip aspiration us Poonam Immenhausen V, DO LAB MICROBIOLOGY - GENER AL ORDERABLES Final Result Performing Organization Address City/[facility]/ZIP Co de Phone Number [facility] [address] [address], [place] [phone] * Crystals, Synovial Fluid (11/15/2024 8:49 AM EDT) Synovial Fluid Crystals Absent Absent [facility] 11/15/2024 9:48 AM EDT [facility] Synovial Fluid Left hip region structure / Unknown 11/15/2024 8:49 AM EDT 11/15/2024 9:13 AM EDT Comment:Left hip aspiration us Poonam Immenhausen V, DO LAB BODY FLUIDS AND STOO LS ORDERABLES Final Result Performing Organization Address [facility] Co de Phone Number [facility] [address] [address], [place] [phone] * (ABNORMAL) Cell Count w/Differential, Synovial (11/15/2024 8:49 AM EDT) Color, Synovial Straw Colorless , Yellow, Straw 11/15/2024 9:40 AM EDT [facility] Appearance, Synovial Clear Clear 01/2025 9:40 AM EDT [facility] TNC, Synovial 245(H) <200 cells/mm3 11/15/2024 9:40 AM EDT [facility] Mononuclear %, Body Fluid 72.2 % 11/15/2024 9:40 AM EDT [facility] Polymorphonuclear %, Body Fluid 27.8 % 11/15/2024 9:40 AM EDT [facility] Mononuclear #, Body Fluid 169 x1000 11/15/2024 9:40 AM EDT [facility] Polymorphonuclear #, Body Fluid 65 x1000 11/15/2024 9:40 AM EDT [facility] Synovial Fluid Left hip region structure / Unknown 11/15/2024 8:49 AM EDT 11/15/2024 9:13 AM EDT Comment:Left hip aspiration Narrative [facility] - 11/15/2024 9:40 AM EDT The reference intervals and other method performance specifications are unavailable for this body fluid. Comparison of the result with concentration in the blood, serum or plasma is recommended. us Poonam Immselwynn V, DO LAB BODY FLUIDS AND STOO LS ORDERABLES Final Result Performing Organization Address [facility] Co de Phone Number [facility] [address] [place] [address], [place] [phone] * PATHOLOGY - SCANNED (11/15/2024) us Onbase Scan Jason SCANNED PROCEDURES Final Resu lt * EMG AUTO ADVANCE (09/06/2024 9:35 AM EDT) us Poonam Immenhausen V, DO NEUROLOGY ORDERABLES Fin al Result * (ABNORMAL) Microalbumin / creatinine, urine ratio (Lab Collect) (07/10/2024 12:49 PM EST) Creatinine, Urine 118 mg/dL 07/10/2024 2:59 PM EST [facility] Microalbumin, Urine 372(H) <=20 mg/L 07/10/2024 2:59 PM EST [facility] Microalb/Creat Ratio, Random Urine 315.3(H) 1.3 - 30.0 mg/g 07/10/2024 2:59 PM EST [facility] Comment:Not Performed Urine Urine specimen collection, clean catch / Unknown Non-Blood Collection / Unknown 07/10/2024 12:49 PM EST 07/10/2024 12:49 PM EST us Poonam Immenhausen V, DO LAB URINE ORDERABLES Fin al Result [facility] [address] [address], [place] [phone] * (ABNORMAL) Vitamin D, 25-Hydroxy, Total, Immunoassay (07/10/2024 11:44 AM EST) Vitamin D 25-OH 18.30(L) 30.00 - 80.00 ng/mL 07/10/2024 3:40 PM EST [facility] Blood Structure of peripheral vein / Unknown Venipuncture / Unknown 07/10/2024 11:44 AM EST 07/10/2024 12:51 PM EST Poonam Solis V, DO LAB BLOOD ORDERABLES Fin al Result Performing Organization Address [facility] de Phone Number [facility] [address] [address], [place] [phone] * (ABNORMAL) PTH, intact (07/10/2024 11:44 AM EST) [facility] Parathyroid Hormone, Intact 88.2(H) 14.5 - 87.1 pg/mL 07/10/2024 3:37 PM EST [facility] Comment: This test was performed using the chemiluminescent immunoassay (CLIA) intended for the quantitative determination of intact human parathyroid hormone method on the DIASORIN LIAISON. Values obtained from different assay methods cannot be used interchangeably. Assay results should be utilized in conjunction with other clinical and laboratory data Blood Structure of peripheral vein / Unknown Venipuncture / Unknown 07/10/2024 11:44 AM EST 07/10/2024 12:51 PM EST Poonam Franklinn V, DO LAB BLOOD ORDERABLES Fin al Result Performing Organization Address [facility] Co de Phone Number [facility] [address] [address], [place] [phone] * (ABNORMAL) Basic metabolic panel (07/10/2024 11:44 AM EST) Pathologist [facility] NA 135(L) 136 - 145 mmol/L 07/10/2024 2:33 PM EST [facility] K 4.6 3.5 - 5.1 mmol/L 07/10/2024 2:33 PM EST [facility] Cl 101 98 - 109 mmol/L 07/10/2024 2:33 PM EST [facility] CO2 24 22 - 32 mmol/L 07/10/2024 2:33 PM EST [facility] BUN 25(H) 8 - 23 mg/dL 07/10/2024 2:33 PM EST [facility] Creatinine 1.68(H) 0.50 - 1.12 mg/dL 07/10/2024 2:33 PM EST [facility] Glucose 104(H) 60 - 99 mg/dL 07/10/2024 2:33 PM EST [facility] Calcium 9.4 8.4 - 10.4 mg/dL 07/10/2024 2:33 PM EST [facility] Anion Gap 15 >=0 07/10/2024 2:33 PM EST [facility] eGFR 41(L) >=60 mL/min/1. 73m2 07/10/2024 2:33 PM EST [facility] Comment:The estimated glomer ular filtration rate (eGFR) is calculated using a new formula developed by the NKF-ASN task force to eliminate race-based correction factors. The new formula uses serum/plasma creatinine, age, and gender to determine eGFR. A value below 60mls/min might indicate kidney disease and will be flagged. For additional information, see Melania et al, Am J Kidney Dis. 2021;79(2):268- 288, A Unifying Approach for GFR estimation: Recommendations of the NKF-ASN Task Force on Reassessing the Inclusion of Race in Diagnosing Kidney Disease . Blood Structure of peripheral vein / Unknown Venipuncture / Unknown 07/10/2024 11:44 AM EST 07/10/2024 12:51 PM EST us Poonam Solis V, DO LAB BLOOD ORDERABLES Fin al Result Performing Organization Address City/[facility] Co de Phone Number [facility] [address] [address], [place] [phone] * Phosphorus (11/25/2023 10:40 AM EDT) Pathologist [facility] Phosphorus 2.7 2.5 - 4.5 mg/dL 11/25/2023 2:37 PM EDT [facility] Blood Structure of peripheral vein / Unknown Venipuncture / Unknown 11/25/2023 10:40 AM EDT 11/25/2023 12:47 PM EDT Poonam Solis V, DO LAB BLOOD ORDERABLES Fin al Result Performing Organization Address [facility] Co de Phone Number [facility] [address] [address], [place] [phone] * (ABNORMAL) CBC Auto Differential (06/29/2023 8:54 AM EST) Pathologist [facility] WBC 7.5 4.8 - 10.8 10*3/uL 06/29/2023 2:21 PM EST [facility] RBC 4.01(L) 4.70 - 6.10 10*6/uL 06/29/2023 2:21 PM EST [facility] Hemoglobin 12.7(L) 13.7 - 16.5 g/dL 06/29/2023 2:21 PM EST [facility] Hematocrit 37.9(L) 40.5 - 48.5 % 06/29/2023 2:21 PM EST [facility] MCV 94.5(H) 80.0 - 94.0 fL 06/29/2023 2:21 PM EST [facility] MCH 31.7 26.0 - 34.0 pg 06/29/2023 2:21 PM EST [facility] MCHC 33.5 31.0 - 36.0 g/dL 06/29/2023 2:21 PM EST [facility] RDW Standard Deviation 45.1(H) 35.1 - 43.9 fL 06/29/2023 2:21 PM EST [facility] RDW 13.1 12.0 - 15.0 % 06/29/2023 2:21 PM EST [facility] Platelets 317 140 - 440 10*3/uL 06/29/2023 2:21 PM EST [facility] MPV 11.1 9.4 - 12.4 fL 06/29/2023 2:21 PM EST [facility] Segs % 58 50 - 75 % 06/29/2023 2:21 PM EST [facility] Immature Grans % 0.3 0.0 - 0.9 % 06/29/2023 2:21 PM EST [facility] Lymphocyte % 24 20 - 44 % 06/29/2023 2:21 PM EST [facility] Monocyte % 12 0 - 14 % 06/29/2023 2:21 PM EST [facility] Eosinophil % 4 0 - 5 % 06/29/2023 2:21 PM EST [facility] Basophil % 1 0 - 2 % 06/29/2023 2:21 PM EST [facility] Segs # 4.4 1.8 - 7.7 10*3/ L 06/29/2023 2:21 PM EST [facility] Immature Grans # 0.02 0.00 - 0.03 10*3/uL 06/29/2023 2:21 PM EST [facility] Lymphocyte # 1.84 1.00 - 4.75 10*3/uL 06/29/2023 2:21 PM EST [facility] Monocyte # 0.91 0.00 - 6.00 10*3/uL 06/29/2023 2:21 PM EST [facility] Eosinophil # 0.31 0 - 0.8 10*3/uL 06/29/2023 2:21 PM EST [facility] Basophil # 0.05 0.00 - 0.20 10*3/uL 06/29/2023 2:21 PM EST [facility] nRBC % 0.0 0 - 0 /100 WBCs 06/29/2023 2:21 PM EST [facility] nRBC # 0.00 0.00 - 0.13 10*3/uL 06/29/2023 2:21 PM EST [facility] Blood Structure of peripheral vein / Unknown Venipuncture / Unknown 06/29/2023 8:54 AM EST 06/29/2023 12:22 PM EST us Poonam Solis V, DO LAB BLOOD ORDERABLES Fin al Result [facility] [address] [facility] [address] [place] [address], from Last 3 Months or Most Recently Relevant to Health Maintenance Insurance [facility] MEDICARE [facility] AARP Care Teams [employer] Person Relationship Specialty Start Date End Date Poonam Solis DO [address] [place] [id number] PCP - General Family Medicine 07/07/23
== END 2024-12-07 10:28 | disposition home or self-care (01) ==
LOC: HO.HCS 09:42
PROVIDERS: Visit Provider Internal Medicine
DX: Z01.810 Encounter for preprocedural cardiovascular examination (principal); R94.31 Abnormal electrocardiogram [ECG] [EKG]
CPT/HCPCS: 99204; G2211

== ENCOUNTER → 2024-12-07 09:42 | Outpatient (BNVA) | payer MEDICARE, SELFPAY | PROVIDERS: Visit Provider Internal Medicine | DX: R94.31 Abnormal electrocardiogram [ECG] [EKG] (principal) | CPT/HCPCS: 99202 ==

== ENCOUNTER → 2024-12-13 13:00 | Outpatient (REF) | payer MEDICARE, SELFPAY ==
--- NOTE | 2024-12-13 13:06 | CA_ITS ---
Transthoracic Echocardiogram Patient (Last, First, Middle): Manuel Mendoza Jr, J Gender: Male Date of : 1945 Age: 78 Procedure Date: 12/13/2024 Procedure Type: Transthoracic Echocardiogram Location: OP Height: 177.8 cm Weight: 99.79 kg BSA: 2.17 m2 Heart Rate: bpm BP: 124 / 68 mmHg Habitat Biologist: CP/RC Referring MD: Bar Hooper MD Symptoms: Z01.810 - Encounter for preprocedural cardiovascular examination Study Quality: Fair ECG Rhythm: Sinus Conclusions: - The left ventricular systolic function is normal. The calculated ejection fraction is 56% by biplane method. - There is moderate calcification of the aortic valve. No significant aortic stenosis. Findings Left Ventricle Normal left ventricular cavity size. The left ventricular systolic function is normal. The calculated ejection fraction is 56% by biplane method. There is no evidence of regional wall motion abnormalities. Diastolic function is normal for age. There is severe septal asymmetric hypertrophy. Right Ventricle Normal right ventricular cavity size and systolic function. Atria Both atria are normal in size. Aortic Valve There is moderate calcification of the aortic valve. There is trace (trivial) aortic valve regurgitation. No significant aortic stenosis. Mitral Valve The mitral valve appears normal. There is no mitral valve regurgitation. There is no mitral valve stenosis. Pulmonic Valve The pulmonic valve is likely normal. Tricuspid Valve Normal tricuspid valve structure. There is trace tricuspid valve regurgitation. Tricuspid regurgitation envelope is inadequate for calculation of right ventricular systolic pressure. Great Vessels The asc aorta is normal in size. Venous The inferior vena cava is normal in size and collapses greater than 50% with inspiration. Pericardium/Pleural There is no evidence of pericardial effusion. Prior Study Comparison No prior study available for comparison. Measurements 2D Linear Measurements IVSd: 1.50 0.6-0.9/0.6-1.0 cm LVIDd: 3.24 3.9-5.3/4.2-5.9 cm LVIDd Index: 1.49 2.4-3.2/2.2-3.1 cm/m2 LVIDs: 2.33 2.0-3.6 cm LVPWd: 0.93 0.7-1.1 cm LA Diam: 4.30 2.7-3.8/3.0-4.0 cm LAIDs Index: 1.98 1.5-2.3 cm/m2 LV Mass: 153.70 67-162/88-224 g LV Mass Index: 70.83 43-95/49-115 g/m2 LVOT Diam: 2.00 3.0+(-)1.3 cm 2D Systolic Function EF 4C: 57.00 >55% EF 2C: 56.50 >55% EF BiP: 56.20 >55% Mitral Valve MV Pk E: 0.40 MV PK A: 0.89 MV Decel Time: 117.00 E/A: 0.40 E'Lateral: 7.94 E'Medial: 4.35 E/E' Med: 9.10 E/E' Lat: 5.00 PHT: 34.00 MVA PHT: 6.47 Decel Alcona: 3.40 Aortic Valve AoV Pk Ibrahima: 1.69 AoV Mn Ibrahima: 1.16 AoV VTI: 0.30 AoV Pk Grad: 11.00 Aov Mn Grad: 6.00 DOMINIC Cont.VTI: 1.92 LVOT LVOT Pk Ibrahima: 0.89 LVOT Mn Ibrahima: 0.64 LVOT VTI: 0.19 LVOT Pk Grad: 3.00 LVOT Mn Grad: 2.00 LVOT Diam: 2.00 LVOT Area: 3.14 Diastolic Function MV Pk E: 0.40 MV Pk A: 0.89 E/A: 0.40 E'Medial: 4.35 E/E' Med: 9.10 E' Laterial: 7.94 E/E' Lat: 5.00 Right Ventricle TAPSE (mm): 19.90 TVS' Ibrahima: 9.90 Tricuspid Valve RA Press: 3.00 Great Vessels Aorta Sinus of Valsalva: 3.30 2.0-3.5 cm Ao Asc: 3.90 2.1-3.4 cm Ao Arch: 3.20 Pulmonary Valve PV Pk Ibrahima: 1.33 Peak PV Grad: 7.00 Updated in Other Vendor System with Status of Final Bar Hooper MD electronically signed on 12/15/2024 3:10:13 PM with status of Final
--- OUTSIDE RECORDS SUMMARY | 2024-12-13 13:34 | XMS_ITS | Clinical Summary ---
Author Organization [facility] Address [address] [place] [address] Care Team Providers Care Capital Equipment Specialist Name Role Phone Nazario Silva Primary Care Provider [phone] Allergies No known active allergies Medications * [...] this topic Zoster (Zostavax) Discontinued Care Teams Capital Equipment Specialist Relationship Specialty Start Date End Date Nazario Silva [facility] [place] [address] PCP - General 07/08/09
--- OUTSIDE RECORDS SUMMARY | 2024-12-13 13:34 | XMS_ITS | Referral Summary ---
Author Organization [facility] Address [address] [place] [address] Care Team Providers Care Engineering Teacher Name Role Phone Luisa Otoole DO, Diana Primary Care Provider + Encounters Date Type Department Care Team Description 11/15/2024 7:51 AM EDT - 11/15/2024 11:59 PM EDT Hospital Encounter [facility] [address] [place] [address] Abnormal CAT scan Discharge Disposition: Home or Self Care (01) 11/15/2024 9:00 AM EDT Office Visit [facility] [address] [facility] Orthopedic Department [address] [facility] [address] [place] [address] New Garcia MD Abnormal CT scan, pelvis (Primary Dx) 11/13/2024 Orders Only [address] Department [address] [place] [phone] Luisa Poonam V, DO Abnormal CAT scan (Primary Dx); Pain of left hip 11/13/[address] Practice Department [address] [place] [phone] Luisa Poonam V, DO Follow-up 11/09/2024 11:00 AM EDT Follow-Up [address] Department [address] [place] [phone] Karlee Crump NP Hyperkalemia (Primary Dx); Bilateral hip pain; Abnormal CT scan, pelvis; 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) 11/06/2024 Telephone [facility] [address] [facility] Practice Department [address] [place] [phone] Poonam Solis DO Request For Order(s) 09/19/[address] Department [address] [place] [phone] Poonam Solis DO 09/19/2024 11:00 AM EDT Office Visit [address] Department [address] [place] [phone] Poonam Solis DO Medicare annual wellness visit, subsequent (Primary Dx); Benign hypertension with stage 3b chronic kidney disease (HCC); Stage 3b chronic kidney disease (HCC); Elevated ferritin level from Last 3 Months Allergies No known [...] Plan (11/09/2024 1:45 PM EDT): Seen at [facility] ER and admitted for abnormal CT concern for septic arthritis left hip, left hospital with 5 day supply of Oxycodone and advised to follow up with Ortho and have IR procedure, left hospital AMA, will request Urgent referral for Ortho at [facility] per patient request and advised to return to the ER with any worsening pain, fever or chills. Continues with Oxycodone for the pain. Abnormal CT scan, pelvis 11/09/2024 Assessment & Plan (11/09/2024 1:42 PM EDT): Admitted to [facility] ER and transferred to [facility] ER for back and hip pain, CT scan noted complex fluid collection in the right iliopsoas bursa with concern for septic hip with plan for inpatient IR procedure, WBC were not elevated, BP normal, was not admitted with sepsis, per patient he left AMA. Will request consult with Ortho at [facility] Urgently, discuss with Dr. Solis IR procedure [...] STAGE III (MODERATE, EGFR 30- 59 ML/MIN) ([facility]) WRITTEN ON 07/10/2024 5:21 PM BY POONAM SOLIS V, DO Increasing renal impairement. GFR is 36, Cr baseline ~1.5. Recommend maintaining adequate hydration, avoid nephrotoxic agents. BP is well controlled. Continue ACEi. Referral to physical education instructor. Orders: Microalbumin / creatinine, urine ratio (Lab Collect); Future Basic metabolic panel; Future Hemoglobin A1c; Future PTH, intact; Future Assessment & Plan (09/19/2024 1:11 PM EDT): >>ASSESSMENT AND PLAN FOR BENIGN HYPERTENSION WITH STAGE 3B CHRONIC KIDNEY DISEASE ([facility]) WRITTEN ON 11/25/2023 9:28 AM BY POONAM SOLIS V, DO BP stable. Continue lisinopril 5 mg daily. Low sodium diet and regular exercise reviewed. >>ASSESSMENT AND PLAN FOR KIDNEY DISEASE, CHRONIC, STAGE III (MODERATE, EGFR 30- 59 ML/MIN) ([facility]) WRITTEN ON 11/25/2023 4:18 PM BY POONAM SOLIS V, DO Increasing renal impairement. GFR is 36, Cr baseline ~1.5. Recommend maintaining adequate hydration, avoid nephrotoxic agents. BP is well controlled. Continue ACEi. Referral to physical education instructor. Assessment & Plan (09/19/2024 1:11 PM EDT): >>ASSESSMENT AND PLAN FOR BENIGN HYPERTENSION WITH STAGE 3B CHRONIC KIDNEY DISEASE ([facility]) WRITTEN ON 09/30/2023 9:34 AM BY POONAM SOLIS V, DO BP stable. Continue lisinopril 5 mg daily. Low sodium diet and regular exercise reviewed. >>ASSESSMENT AND PLAN FOR KIDNEY DISEASE, CHRONIC, STAGE III (MODERATE, EGFR 30- 59 ML/MIN) ([facility]) WRITTEN ON 09/30/2023 9:36 AM BY POONAM [...] = 0.6 oz pur e alcohol) [facility] Utilities Answer Date Recorded In the past 12 months has th e electric, gas, oil, or water company threatened to shut off services in your [...] Info) Description 12/22/2024 10:00 AM EDT Follow-Up [address] Family Practice Department [address] [place] [address] Poonam Solis V, [address] [place] [address] Procedures * Due to [place] state law, this organization might not be sharing negative HIV tests. Procedure Name Priority Date/Time Associated Diagnosis Comments XR HIP LEFT 2+ VIEW W PELVIS Routine 11/15/2024 9:[address] scan, pelvis US GUIDED ASPIRATION OR INJECTION OF MAJOR JOINT OR BURSA STAT 11/15/2024 8:49 AM EDT Abnormal CAT scan NON-GYNECOLOGIC CYTOLOGY - ETIENNE ONLY Routine 11/15/2024 8:49 AM EDT Abnormal [...] Abnormal CAT scan PATHOLOGY - SCANNED 11/15/[address] L-SPINE, OUTSIDE RESULT 11/07/2024 AMB EXTERNAL MRI LUMBAR SPINE, OUTSIDE RESULT 11/07/2024 MICROALBUMIN, RANDOM URINE WITH CREATININE Routine 07/10/2024 [...] to Health Maintenance Results * Due to [place] state law, this organization might not be [...] to obtain the completed interpretation. Workstation ID: [id number] Narrative 11/15/2024 12:45 PM EDT Examination: Ultrasound-guided aspiration of left hip collection. History: Left hip fluid collection surrounding on outside CT. Computer Game Designer(s): Kiran Zambrano MD; Operative report: [...] and performed the procedure. Resulting Agency Comment [id number] Procedure Note Kiran Zambrano MD - 11/15/2024 Examination: Ultrasound-guided aspiration of left hip collection. History: Left hip fluid collection surrounding on outside CT. Computer Game Designer(s): Kiran Zambrano MD; Operative report: [...] possible to obtain thecompleted interpretation. Workstation ID: [id number] us Poonam Solis V, DO IMG US PROCEDURES Final Result * Non-Gynecologic Cytology - [place] only (11/15/2024 8:49 AM EDT) Non-Gynecologic Cytology Result SEE DETAILS 11/17/2024 12:00 AM EDT [facility] Comment: FINAL DIAGNOSIS [...] made. Grossing and technical work performed at [facility] ([facility], [address] [place] [id number]; ; [id number]; CLIA #[id number]) All professional pathology services performed at [facility] ([address] [place] [id number]; ; CLIA #[id number]) Note: Some or all of the tests utilized in this case may be laboratory developed tests (LDT's) and may use class I analyte specific reagents (ASR). These tests were developed for clinical purposes and their performance characteristics determined by [facility] on tissue fixed in 10% neutral buffered formalin. Other fixatives have not been validated, and therefore results on tissue with such fixation should be interpreted with caution and in the clinical context. [facility] are qualified under the CLIA 1988 documents to provide high-complexity clinical laboratory testing. All controls are reviewed and deemed appropriate. Synovial Fluid Left hip region structure / Unknown 11/15/2024 8:49 AM EDT 11/15/2024 9:12 AM EDT Comment:Left hip aspiration us Poonambry Solis V, DO LAB PATH/CYTO (CAROLYNNTO N) Final Result [facility] [address] [place] [address], * Anaerobic Culture (11/15/2024 8:49 AM EDT) Anaerobic Culture No anaerobes isolated. [facility] 11/18/2024 9:53 AM EDT [facility] Synovial Fluid Left hip region structure / Unknown 11/15/2024 8:49 AM EDT Comment:Left hip aspiration us Poonambry Solis V, DO LAB MICROBIOLOGY - GENER AL ORDERABLES Final Result Performing Organization Address City/[facility]/ZIP Co de Phone Number [facility] [address] [place] [address] [address] [place] [address], [place] [phone] * Aerobic Culture w/Gram Stain (11/15/2024 8:49 AM EDT) Aerobic Culture No growth after 3 days [facility] 11/18/2024 9:53 AM EDT [facility] Gram Stain Result Few White Blood Cells Seen 11/18/2024 9:53 AM EDT [facility] Gram Stain Result Rare Red blood cells seen 11/18/2024 9:53 AM EDT [facility] Gram Stain Result No organisms seen 11/18/2024 9:53 AM EDT [facility] Synovial Fluid Left hip region structure / Unknown 11/15/2024 8:49 AM EDT Comment:Left hip aspiration us Poonam Noemin V, DO LAB MICROBIOLOGY - GENER AL ORDERABLES Final Result [facility] [address] [address], [place] [phone] * Crystals, Synovial Fluid (11/15/2024 8:49 AM EDT) Synovial Fluid Crystals Absent Absent [facility] 11/15/2024 9:48 AM EDT [facility] Synovial Fluid Left hip region structure / Unknown 11/15/2024 8:49 AM EDT 11/15/2024 9:13 AM EDT Comment:Left hip aspiration us Poonam Solis V, DO LAB BODY FLUIDS AND STOO LS ORDERABLES Final Result [facility] [address] [address], [place] [phone] * (ABNORMAL) Cell Count w/Differential, Synovial (11/15/2024 8:49 AM EDT) Color, Synovial Straw Colorless , Yellow, Straw 11/15/2024 9:40 AM EDT [facility] Appearance, Synovial Clear Clear 01/2025 9:40 AM EDT [facility] TNC, Synovial 245(H) <200 cells/mm3 11/15/2024 9:40 AM EDT [facility] Mononuclear %, Body Fluid 72.2 % 11/15/2024 9:40 AM EDT [facility] Polymorphonuclear %, Body Fluid 27.8 % 11/15/2024 9:40 AM EDT [facility] Mononuclear #, Body Fluid 169 x1000 11/15/2024 9:40 AM EDT [facility] Polymorphonuclear #, Body Fluid 65 x1000 11/15/2024 9:40 AM EDT [facility] Synovial Fluid Left hip region structure / Unknown 11/15/2024 8:49 AM EDT 11/15/2024 9:13 AM EDT Comment:Left hip aspiration Narrative [facility] - 11/15/2024 9:40 AM EDT The reference intervals and other method performance specifications are unavailable for this body fluid. Comparison of the result with concentration in the blood, serum or plasma is recommended. us Poonam Solis V, DO LAB BODY FLUIDS AND STOO LS ORDERABLES Final Result [facility] [address] [place] [address], [place] [phone] * PATHOLOGY - SCANNED (11/15/2024) us Onbase Scan Jason SCANNED PROCEDURES Final Resu lt * MRI Lumbar Spine, Outside Result (11/07/2024) Anatomical Region Laterality Modality Other 11/07/2024 us Onbase Scan Jason AMB EXTERNAL RESULT PROCEDURE S Final Result * CT L-Spine, Outside Result (11/07/2024) Anatomical Region Laterality Modality Other 11/07/2024 us Onbase Scan Jason AMB EXTERNAL RESULT PROCEDURE S Final Result * (ABNORMAL) Microalbumin / creatinine, urine ratio (Lab Collect) (07/10/2024 12:49 PM EST) Creatinine, Urine 118 mg/dL 07/10/2024 2:59 PM EST [facility] Microalbumin, Urine 372(H) <=20 mg/L 07/10/2024 2:59 PM EST [facility] Microalb/Creat Ratio, Random Urine 315.3(H) 1.3 - 30.0 mg/g 07/10/2024 2:59 PM EST [facility] Comment:Not Performed Urine Urine specimen collection, clean catch / Unknown Non-Blood Collection / Unknown 07/10/2024 12:49 PM EST 07/10/2024 12:49 PM EST Poonam [employer]wynn V, DO LAB URINE ORDERABLES Fin al Result Performing Organization Address [facility] Co de Phone Number [facility] [address] [address], [place] [phone] * (ABNORMAL) Vitamin D, 25-Hydroxy, Total, Immunoassay (07/10/2024 11:44 AM EST) Vitamin D 25-OH 18.30(L) 30.00 - 80.00 ng/mL 07/10/2024 3:40 PM EST [facility] Blood Structure of peripheral vein / Unknown Venipuncture / Unknown 07/10/2024 11:44 AM EST 07/10/2024 12:51 PM EST Poonam [employer]enh[employer]en V, DO LAB BLOOD ORDERABLES Fin al Result Performing Organization Address [facility] de Phone Number [facility] [address] [address], [place] [phone] * (ABNORMAL) PTH, intact (07/10/2024 11:44 AM EST) Parathyroid Hormone, Intact 88.2(H) 14.5 - 87.1 pg/mL 07/10/2024 3:37 PM EST [facility] Comment: This test was performed using [...] AM EST 07/10/2024 12:51 PM EST Poonam [employer] V, DO LAB BLOOD ORDERABLES Fin al Result Performing Organization Address [facility] Co de Phone Number [facility] [address] [address], [place] [phone] * (ABNORMAL) Basic metabolic panel (07/10/2024 11:44 AM EST) NA 135(L) 136 - 145 mmol/L 07/10/2024 2:33 PM EST [facility] K 4.6 3.5 - 5.1 mmol/L 07/10/2024 2:33 PM EST [facility] Cl 101 98 - 109 mmol/L 07/10/2024 2:33 PM EST [facility] CO2 24 22 - 32 mmol/L 07/10/2024 2:33 PM EST [facility] BUN 25(H) 8 - 23 mg/dL 07/10/2024 2:33 PM EST [facility] Creatinine 1.68(H) 0.50 - 1.12 mg/dL 07/10/2024 2:33 PM EST [facility] Glucose 104(H) 60 - 99 mg/dL 07/10/2024 2:33 PM EST [facility] Calcium 9.4 8.4 - 10.4 mg/dL 07/10/2024 2:33 PM EST [facility] Anion Gap 15 >=0 07/10/2024 2:33 PM EST [facility] eGFR 41(L) >=60 mL/min/1. 73m2 07/10/2024 2:33 PM EST [facility] Comment:The estimated glomer ular filtration rate (eGFR) is calculated using a new formula developed by the NKF-ASN task force to eliminate race-based correction factors. The new formula uses serum/plasma creatinine, age, and gender to determine eGFR. A value below 60mls/min might indicate kidney disease and will be flagged. For additional information, see Velázquez et al, Am J Kidney Dis. 2021;79(2):268- 288, A Unifying Approach for GFR estimation: Recommendations of the NKF-ASN Task Force on Reassessing the Inclusion of Race in Diagnosing Kidney Disease . Blood Structure of peripheral vein / Unknown Venipuncture / Unknown 07/10/2024 11:44 AM EST 07/10/2024 12:51 PM EST us Poonam Immenhausen V, DO LAB BLOOD ORDERABLES Fin al Result Performing Organization Address City/[facility]/ZIP Co de Phone Number [facility] [address] [address], [place] [phone] * Phosphorus (11/25/2023 10:40 AM EDT) Phosphorus 2.7 2.5 - 4.5 mg/dL 11/25/2023 2:37 PM EDT [facility] Blood Structure of peripheral vein / Unknown Venipuncture / Unknown 11/25/2023 10:40 AM EDT 11/25/2023 12:47 PM EDT us Poonam Immenhausen V, DO LAB BLOOD ORDERABLES Fin al Result Performing Organization Address [facility] Co de Phone Number [facility] [address] [address], [place] [phone] * (ABNORMAL) CBC Auto Differential (06/29/2023 8:54 AM EST) Pathologist [facility] WBC 7.5 4.8 - 10.8 10*3/uL 06/29/2023 2:21 PM EST [facility] RBC 4.01(L) 4.70 - 6.10 10*6/uL 06/29/2023 2:21 PM EST [facility] Hemoglobin 12.7(L) 13.7 - 16.5 g/dL 06/29/2023 2:21 PM EST [facility] Hematocrit 37.9(L) 40.5 - 48.5 % 06/29/2023 2:21 PM EST [facility] MCV 94.5(H) 80.0 - 94.0 fL 06/29/2023 2:21 PM EST [facility] MCH 31.7 26.0 - 34.0 pg 06/29/2023 2:21 PM EST [facility] MCHC 33.5 31.0 - 36.0 g/dL 06/29/2023 2:21 PM EST [facility] RDW Standard Deviation 45.1(H) 35.1 - 43.9 fL 06/29/2023 2:21 PM EST [facility] RDW 13.1 12.0 - 15.0 % 06/29/2023 2:21 PM EST [facility] Platelets 317 140 - 440 10*3/uL 06/29/2023 2:21 PM EST [facility] MPV 11.1 9.4 - 12.4 fL 06/29/2023 2:21 PM EST [facility] Segs % 58 50 - 75 % 06/29/2023 2:21 PM EST [facility] Immature Grans % 0.3 0.0 - 0.9 % 06/29/2023 2:21 PM EST [facility] Lymphocyte % 24 20 - 44 % 06/29/2023 2:21 PM EST [facility] Monocyte % 12 0 - 14 % 06/29/2023 2:21 PM EST [facility] Eosinophil % 4 0 - 5 % 06/29/2023 2:21 PM EST [facility] Basophil % 1 0 - 2 % 06/29/2023 2:21 PM EST [facility] Segs # 4.4 1.8 - 7.7 10*3/ L 06/29/2023 2:21 PM EST [facility] Immature Grans # 0.02 0.00 - 0.03 10*3/uL 06/29/2023 2:21 PM EST [facility] Lymphocyte # 1.84 1.00 - 4.75 10*3/uL 06/29/2023 2:21 PM EST [facility] Monocyte # 0.91 0.00 - 6.00 10*3/uL 06/29/2023 2:21 PM EST [facility] Eosinophil # 0.31 0 - 0.8 10*3/uL 06/29/2023 2:21 PM EST [facility] Basophil # 0.05 0.00 - 0.20 10*3/uL 06/29/2023 2:21 PM EST [facility] nRBC % 0.0 0 - 0 /100 WBCs 06/29/2023 2:21 PM EST [facility] nRBC # 0.00 0.00 - 0.13 10*3/uL 06/29/2023 2:21 PM EST [facility] Blood Structure of peripheral vein / Unknown Venipuncture / Unknown 06/29/2023 8:54 AM EST 06/29/2023 12:22 PM EST us Poonam Solis V, DO LAB BLOOD ORDERABLES Fin al Result [facility] [address] [place] [address] [address] [place] [address], from Last 3 Months or Most Recently Relevant to Health Maintenance Insurance MEDICARE [facility] MEDICARE [facility] AAR Care Teams Engineering Teacher Relationship Specialty Start Date End Date Poonam Solis DO [address] [place] [phone] PCP - General Family Medicine 07/07/23
--- OUTSIDE RECORDS SUMMARY | 2024-12-13 13:34 | XMS_ITS | Clinical Summary ---
Author Organization [facility] [employer] [facility] Address [address] [facility] [place] [address] Care Team Providers Care Table Assembler Name Role Phone Pcp, No Primary Care Provider [phone] Allergies No known active allergies Medications ramipriL [...] Adults 18 yrs or above (or HM Modifier)([facility]) 12/28/1963 SDOH Screening Reminder: Adriana otrres for all adults ([facility]) 12/28/1963 Zoster/Shingles Vaccine Seri es Screening: Adults aged 18+ yrs (or HM Modifiers)([facility]) (1 of 2) 12/28/1993 RSV Vaccines (1 - 1-dose 75+ series) 12/28/2018 COVID-19 Vaccine Screening: Initial Series and Booster Status ([facility]) ( - 2023- season) 2024 07/16/2020, 06/25/2020 Flu Vaccination: Ages 65+: Y early High Dose Recommended (or Modifier)([facility]) 12/08/2024 05/15/2022, 03/06/2019, 02/14/2018, Additional history exists DTaP/Tdap/Td Vaccines ([facility]) (3 - Td or Tdap) 09/23/2030 09/23/2020, 10/22/2010 Pneumococcal Vaccination Screening: Patients 50+ yrs of age ([facility]) Completed 12/26/2015, 10/22/2010 Medical Devices Not on file Care Teams Table Assembler Relationship Specialty Start Date End Date Pcp, No PCP - General Family Medicine 06/13/24
== END ==
LOC: HO.CARD 13:00
PROVIDERS: Visit Provider Internal Medicine
DX: Z01.810 Encounter for preprocedural cardiovascular examination (principal); R94.31 Abnormal electrocardiogram [ECG] [EKG]
CPT/HCPCS: 93306

== ENCOUNTER → 2024-12-13 13:06 | Outpatient (BNV) | payer MEDICARE, SELFPAY | PROVIDERS: Visit Provider Internal Medicine | DX: I42.2 Other hypertrophic cardiomyopathy (principal); I35.8 Other nonrheumatic aortic valve disorders | CPT/HCPCS: 93306 ==

== ENCOUNTER → 2024-12-15 08:23 | Outpatient (REF) | payer MEDICARE, SELFPAY ==
--- NOTE | ~2024-12-15 | NM_ITS ---
Lexiscan Myocardial perfusion study Indication: Preoperative cardiovascular stratification Technique: The patient was brought in for a Lexiscan perfusion study on December 15, 2024 and was injected 0.4 mg of Lexiscan intravenously. Within a minute of this injection 35 mCi of sestamibi was given intravenously. Images were obtained using the SPECT gamma camera interlaced with the gating device. Images were obtained in supine position. Resting perfusion study was performed on December 18, 2024. Patient was administered 35 mCi of sestamibi intravenously at rest. Images were then obtained in supine position. Images were Obtained without without CT attenuation. Total DLP 171 mGy-cm. Images were processed with the software and compared side to side in short axis, horizontal long axis and vertical long axis views. Findings: The stress perfusion study showed nonattenuated images show thinning of the distal inferolateral wall of the LV myocardium. Remainder of the LV myocardium is normally perfused. Attenuated corrected images show mildly reduced uptake in the distal anterior and apical wall of the LV myocardium.. The gated study shows normal LV systolic function with visually estimated LVEF of greater than 55%. LV cavity is normal in size. The gated study shows normal systolic wall thickening and contraction of segments. Resting study shows nonattenuated images show mildly reduced uptake in the inferolateral wall of the LV myocardium. Attenuated corrected images show overall normal uptake of radiotracer in all segments of the LV myocardium.. Gating at rest reveals normal systolic wall motion with ejection fraction at greater than 55%. The findings are consistent with nonattenuated images show no reversible defect suggestive of ischemia. Attenuated corrected images show mild intensity reversible defect distal anterior and apical wall. Findings are most suggestive of artifact. NM/NM cardiolite stress test Impression: 1. Myocardial perfusion imaging study shows likely normal myocardial perfusion 2. Gated LVEF is greater than 55% 3. Transient ischemic dilatation not present Nondiagnostic changes on EKG. Electronically signed by: Garland Thompson MD 12/19/2024 12:52 PM EDT
--- OUTSIDE RECORDS SUMMARY | 2024-12-15 08:34 | XMS_ITS | Clinical Summary ---
Author Organization [facility] Address [address] [place] [address] Care Team Providers Care Appeals Referee Name Role Phone Nazario Silva Primary Care Provider [phone] Allergies No known active allergies Medications * [...] this topic Zoster (Zostavax) Discontinued Care Teams Appeals Referee Relationship Specialty Start Date End Date Nazario Silva [facility] [place] [address] PCP - General 07/08/09
--- OUTSIDE RECORDS SUMMARY | 2024-12-15 08:34 | XMS_ITS | Referral Summary ---
Author Organization [facility] Address [address] [place] [address] Care Team Providers Care Speech Therapist Name Role Phone Luisa Otoole DO, Diana Primary Care Provider + Encounters Date Type Department Care Team Description 11/15/2024 7:51 AM EDT - 11/15/2024 11:59 PM EDT Hospital Encounter [facility] [address] [place] [address] Abnormal CAT scan Discharge Disposition: Home or Self Care (01) 11/15/2024 9:00 AM EDT Office Visit [facility] Orthopedic Department 94 [facility] [address] [place] [address] New Garcia MD Abnormal CT scan, pelvis (Primary Dx) 11/13/2024 Orders Only [address] Department [address] [place] [phone] Luisa Poonam V, DO Abnormal CAT scan (Primary Dx); Pain of left hip 11/13/[address] Practice Department [address] [place] [phone] Luisa Poonam V, DO Follow-up 11/09/2024 11:00 AM EDT Follow-Up [address] Department [address] [place] [phone] Karlee Crump NP Hyperkalemia (Primary Dx); Bilateral hip pain; Abnormal CT scan, pelvis; 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 Practice Department [address] [place] [phone] Poonam Solis DO Request For Order(s) 09/19/[address] Department [address] [place] [phone] Poonam Solis DO 09/19/2024 11:00 AM EDT Office Visit [address] Department [address] [place] [phone] Poonam Solis DO Medicare annual wellness visit, [...] Plan (11/09/2024 1:45 PM EDT): Seen at [facility] ER and admitted for abnormal CT concern for septic arthritis left hip, left hospital with 5 day supply of Oxycodone and advised to follow up with Ortho and have IR procedure, left hospital AMA, will request Urgent referral for Ortho at [facility] per patient request and advised to return to the ER with any worsening pain, fever or chills. Continues with Oxycodone for the pain. Abnormal CT scan, pelvis 11/09/2024 Assessment & Plan (11/09/2024 1:42 PM EDT): Admitted to [facility] and transferred to [facility] ER for back and hip pain, CT scan noted complex fluid collection in the right iliopsoas bursa with concern for septic hip with plan for inpatient IR procedure, WBC were not elevated, BP normal, was not admitted with sepsis, per patient he left AMA. Will request consult with Ortho at [facility] Urgently, discuss with Dr. Solis IR procedure [...] STAGE III (MODERATE, EGFR 30- 59 ML/MIN) ([facility]) WRITTEN ON 07/10/2024 5:21 PM BY POONAM SOLIS V, DO Increasing renal impairement. GFR is 36, Cr baseline ~1.5. Recommend maintaining adequate hydration, avoid nephrotoxic agents. BP is well controlled. Continue ACEi. Referral to manufacturing assembler. Orders: Microalbumin / creatinine, urine ratio (Lab Collect); Future Basic metabolic panel; Future Hemoglobin A1c; Future PTH, intact; Future Assessment & Plan (09/19/2024 1:11 PM EDT): >>ASSESSMENT AND PLAN FOR BENIGN HYPERTENSION WITH STAGE 3B CHRONIC KIDNEY DISEASE ([facility]) WRITTEN ON 11/25/2023 9:28 AM BY POONAM SOLIS V, DO BP stable. Continue lisinopril 5 mg daily. Low sodium diet and regular exercise reviewed. >>ASSESSMENT AND PLAN FOR KIDNEY DISEASE, CHRONIC, STAGE III (MODERATE, EGFR 30- 59 ML/MIN) ([facility]) WRITTEN ON 11/25/2023 4:18 PM BY POONAM SOLIS V, DO Increasing renal impairement. GFR is 36, Cr baseline ~1.5. Recommend maintaining adequate hydration, avoid nephrotoxic agents. BP is well controlled. Continue ACEi. Referral to manufacturing assembler. Assessment & Plan (09/19/2024 1:11 PM EDT): >>ASSESSMENT AND PLAN FOR BENIGN HYPERTENSION WITH STAGE 3B CHRONIC KIDNEY DISEASE ([facility]) WRITTEN ON 09/30/2023 9:34 AM BY POONAM SOLIS V, DO BP stable. Continue lisinopril 5 mg daily. Low sodium diet and regular exercise reviewed. >>ASSESSMENT AND PLAN FOR KIDNEY DISEASE, CHRONIC, STAGE III (MODERATE, EGFR 30- 59 ML/MIN) ([facility]) WRITTEN ON 09/30/2023 9:36 AM BY [...] drink = 0.6 oz pur e alcohol) [facility] Utilities Answer Date Recorded In the [...] Info) Description 12/22/2024 10:00 AM EDT Follow-Up [address] Family Practice Department [address] [place] [address] Poonam Solis V, DO [address] [place] [address] Procedures * Due to [place] state law, this organization might not be [...] to Health Maintenance Results * Due to [place] state law, this organization might not be [...] to obtain the completed interpretation. Workstation ID: [id number] Narrative 11/15/2024 12:45 PM EDT Examination: Ultrasound-guided aspiration of left hip collection. History: Left hip fluid collection surrounding on outside CT. Basting Cleaner(s): Kiran Zambrano MD; Operative report: Preparation: Procedure, [...] and performed the procedure. Resulting Agency Comment [id number] Procedure Note Kiran Zambrano MD - 11/15/2024 Examination: Ultrasound-guided aspiration of left hip collection. History: Left hip fluid collection surrounding on outside CT. Basting Cleaner(s): Kiran Zambrano MD; Operative report: Preparation: Procedure, [...] possible to obtain thecompleted interpretation. Workstation ID: [id number] us Poonam Luisa V, DO IMG US PROCEDURES Final Result * Non-Gynecologic Cytology - [place] only (11/15/2024 8:49 AM EDT) Non-Gynecologic Cytology Result SEE DETAILS 11/17/2024 12:00 AM EDT [facility] Comment: FINAL DIAGNOSIS Left hip, aspiration: Negative for malignancy. Comment: The specimen is acellular, consisting of proteinaceous material. Morena Clifford M.D. Electronic Signature: 11/17/2024 09:43 Screened by: MELVINA Erickson (ASC) Clinical History R93.89, left hip aspiration Macroscopic Description Received fresh is 1 cc of clear yellow fluid from which a liquid based cyto-preparation and cell block is made. Grossing and technical work performed at [facility] ([facility], [address] [place] [address]; ; [id number]; CLIA #[id number]) All professional pathology services performed at [facility] ([address] [place] [address]; ; CLIA #[id number]) Note: Some or all of the tests utilized in this case may be laboratory developed tests (LDT's) and may use class I analyte specific reagents (ASR). These tests were developed for clinical purposes and their performance characteristics determined by [facility] on tissue fixed in 10% neutral buffered formalin. Other fixatives have not been validated, and therefore results on tissue with such fixation should be interpreted with caution and in the clinical context. [facility] are qualified under the CLIA 1988 documents to provide high-complexity clinical laboratory testing. All controls are reviewed and deemed appropriate. Synovial Fluid Left hip region structure / Unknown 11/15/2024 8:49 AM EDT 11/15/2024 9:12 AM EDT Comment:Left hip aspiration us Poonam Solis V, DO LAB PATH/CYTO ([place] N) Final Result Performing Organization Address City/[facility]/ZIP Co de Phone Number [facility] [address] [place] [address], * Anaerobic Culture (11/15/2024 8:49 AM EDT) Anaerobic Culture No anaerobes isolated. [facility] 11/18/2024 9:53 AM EDT [facility] Synovial Fluid Left hip region structure / Unknown 11/15/2024 8:49 AM EDT Comment:Left hip aspiration us Poonam Solis V, DO LAB MICROBIOLOGY - GENER AL ORDERABLES Final Result Performing Organization Address City/[facility]/ZIP Co de Phone Number [facility] [address] [place] [address] [address] [place] [address], [place] [phone] * Aerobic Culture w/Gram Stain (11/15/2024 8:49 AM EDT) Aerobic Culture No growth after 3 days [facility] 11/18/2024 9:53 AM EDT [facility] Gram Stain Result Few White Blood Cells Seen 11/18/2024 9:53 AM EDT [facility] Gram Stain Result Rare Red blood cells seen 11/18/2024 9:53 AM EDT [facility] Gram Stain Result No organisms seen 11/18/2024 9:53 AM EDT [facility] Synovial Fluid Left hip region structure / Unknown 11/15/2024 8:49 AM EDT Comment:Left hip aspiration us Poonambry Solis V, DO LAB MICROBIOLOGY - GENER AL ORDERABLES Final Result Performing Organization Address City/[facility]/ZIP Co de Phone Number [facility] [address] [address], [place] [phone] * Fungus Culture w/DARREN Stain (11/15/2024 8:49 AM EDT) Culture No fungal growth at 4 Weeks 12/14/2024 10:59 AM EDT [employer] [facility] DARREN Stain No Fungal Elements Seen 12/14/2024 10:59 AM EDT [facility] Synovial Fluid Left hip region structure / Unknown 11/15/2024 8:49 AM EDT 11/15/2024 9:12 AM EDT Comment:Left hip aspiration Narrative [facility] - 12/14/2024 10:59 AM EDT [facility] Received Date: MICRO NUMBER: [id number] SPECIMEN QUALITY: Adequate SOURCE: SYNOVIAL FLUID HIP, LEFT STATUS: FINAL us Poonam Immenhausen V, DO LAB MICROBIOLOGY - GENER AL ORDERABLES Final Result [facility] [address] [facility] [address]rd [address], [place] [address], [place] [phone] [facility] [employer] [facility] [address] [facility] 3rd [address], [place] [address], [place] [phone] * Crystals, Synovial Fluid (11/15/2024 8:49 AM EDT) Synovial Fluid Crystals Absent Absent [facility] 11/15/2024 9:48 AM EDT [facility] Synovial Fluid Left hip region structure / Unknown 11/15/2024 8:49 AM EDT 11/15/2024 9:13 AM EDT Comment:Left hip aspiration us Poonam Immenhausen V, DO LAB BODY FLUIDS AND STOO LS ORDERABLES Final Result [facility] [address] [address], [place] [phone] * (ABNORMAL) Cell Count w/Differential, Synovial (11/15/2024 8:49 AM EDT) Color, Synovial Straw Colorless , Yellow, Straw 11/15/2024 9:40 AM EDT [facility] Appearance, Synovial Clear Clear 01/2025 9:40 AM EDT [facility] TNC, Synovial 245(H) <200 cells/mm3 11/15/2024 9:40 AM EDT [facility] Mononuclear %, Body Fluid 72.2 % 11/15/2024 9:40 AM EDT [facility] Polymorphonuclear %, Body Fluid 27.8 % 11/15/2024 9:40 AM EDT [facility] Mononuclear #, Body Fluid 169 x1000 11/15/2024 9:40 AM EDT [facility] Polymorphonuclear #, Body Fluid 65 x1000 11/15/2024 9:40 AM EDT [facility] Synovial Fluid Left hip region structure / Unknown 11/15/2024 8:49 AM EDT 11/15/2024 9:13 AM EDT Comment:Left hip aspiration Narrative [facility] - 11/15/2024 9:40 AM EDT The reference intervals and other method performance specifications are unavailable for this body fluid. Comparison of the result with concentration in the blood, serum or plasma is recommended. us Poonam Solis V, LAB BODY FLUIDS AND STOO LS ORDERABLES Final Result [facility] [address] [place] [address], [place] [phone] * PATHOLOGY - SCANNED (11/15/2024) us Onbase Scan [facility] SCANNED PROCEDURES Final Resu lt * MRI [...] Urine 118 mg/dL 07/10/2024 2:59 PM EST [facility] Microalbumin, Urine 372(H) <=20 mg/L 07/10/2024 2:59 PM EST [facility] Microalb/Creat Ratio, Random Urine 315.3(H) 1.3 - 30.0 mg/g 07/10/2024 2:59 PM EST [facility] Comment:Not Performed Urine Urine specimen collection, clean catch / Unknown Non-Blood Collection / Unknown 07/10/2024 12:49 PM EST 07/10/2024 12:49 PM EST us Poonam Otoole DO LAB URINE ORDERABLES Fin al Result [facility] [address] [place] [address] [address] [place] [address], [place] [phone] * (ABNORMAL) Vitamin D, 25-Hydroxy, Total, Immunoassay (07/10/2024 11:44 AM EST) Vitamin D 25-OH 18.30(L) 30.00 - 80.00 ng/mL 07/10/2024 3:40 PM EST [facility] Blood Structure of peripheral vein / Unknown Venipuncture / Unknown 07/10/2024 11:44 AM EST 07/10/2024 12:51 PM EST us Poonam Immenhausen V, DO LAB BLOOD ORDERABLES Fin al Result Performing Organization Address [facility]/ZIP Co de Phone Number [facility] [address] [address], * (ABNORMAL) PTH, intact (07/10/2024 11:44 AM EST) Parathyroid Hormone, Intact 88.2(H) 14.5 - 87.1 pg/mL 07/10/2024 3:37 PM EST [facility] Comment: This test was performed using the chemiluminescent immunoassay (CLIA) intended for the quantitative determination of intact human parathyroid hormone method on the DIAEmbly LIAISON. Values obtained from different assay methods cannot be used interchangeably. Assay results should be utilized in conjunction with other clinical and laboratory data Blood Structure of peripheral vein / Unknown Venipuncture / Unknown 07/10/2024 11:44 AM EST 07/10/2024 12:51 PM EST Luminescentausen V, DO LAB BLOOD ORDERABLES Fin al Result Performing Organization Address [facility]/ZIP Co de Phone Number [facility] [address] [address], * (ABNORMAL) Basic metabolic panel (07/10/2024 11:44 AM EST) NA 135(L) 136 - 145 mmol/L 07/10/2024 2:33 PM EST [facility] K 4.6 3.5 - 5.1 mmol/L 07/10/2024 2:33 PM EST [facility] Cl 101 98 - 109 mmol/L 07/10/2024 2:33 PM EST [facility] CO2 24 22 - 32 mmol/L 07/10/2024 2:33 PM EST [facility] BUN 25(H) 8 - 23 mg/dL 07/10/2024 2:33 PM EST [facility] Creatinine 1.68(H) 0.50 - 1.12 mg/dL 07/10/2024 2:33 PM EST [facility] Glucose 104(H) 60 - 99 mg/dL 07/10/2024 2:33 PM EST [facility] Calcium 9.4 8.4 - 10.4 mg/dL 07/10/2024 2:33 PM EST [facility] Anion Gap 15 >=0 07/10/2024 2:33 PM EST [facility] eGFR 41(L) >=60 mL/min/1. 73m2 07/10/2024 2:33 PM EST [facility] Comment:The estimated glomer ular filtration [...] DO LAB BLOOD ORDERABLES Fin al Result [facility] [address] [place] [address], * Phosphorus (11/25/2023 10:40 AM EDT) Phosphorus 2.7 2.5 - 4.5 mg/dL 11/25/2023 2:37 PM EDT [facility] Blood Structure of peripheral vein / Unknown Venipuncture / Unknown 11/25/2023 10:40 AM EDT 11/25/2023 12:47 PM EDT us Poonam Immenhausen V, DO LAB BLOOD ORDERABLES Pablo al Result [facility] [address] [place] [address], * (ABNORMAL) CBC Auto Differential (06/29/2023 8:54 AM EST) WBC 7.5 4.8 - 10.8 10*3/uL 06/29/2023 2:21 PM EST [facility] RBC 4.01(L) 4.70 - 6.10 10*6/uL 06/29/2023 2:21 PM EST [facility] Hemoglobin 12.7(L) 13.7 - 16.5 g/dL 06/29/2023 2:21 PM EST [facility] Hematocrit 37.9(L) 40.5 - 48.5 % 06/29/2023 2:21 PM EST [facility] MCV 94.5(H) 80.0 - 94.0 fL 06/29/2023 2:21 PM EST [facility] MCH 31.7 26.0 - 34.0 pg 06/29/2023 2:21 PM EST [facility] MCHC 33.5 31.0 - 36.0 g/dL 06/29/2023 2:21 PM EST [facility] RDW Standard Deviation 45.1(H) 35.1 - 43.9 fL 06/29/2023 2:21 PM EST [facility] RDW 13.1 12.0 - 15.0 % 06/29/2023 2:21 PM EST [facility] Platelets 317 140 - 440 10*3/uL 06/29/2023 2:21 PM EST [facility] MPV 11.1 9.4 - 12.4 fL 06/29/2023 2:21 PM EST [facility] Segs % 58 50 - 75 % 06/29/2023 2:21 PM EST [facility] Immature Grans % 0.3 0.0 - 0.9 % 06/29/2023 2:21 PM EST [facility] Lymphocyte % 24 20 - 44 % 06/29/2023 2:21 PM EST [facility] Monocyte % 12 0 - 14 % 06/29/2023 2:21 PM EST [facility] Eosinophil % 4 0 - 5 % 06/29/2023 2:21 PM EST [facility] Basophil % 1 0 - 2 % 06/29/2023 2:21 PM EST [facility] Segs # 4.4 1.8 - 7.7 10*3/ L 06/29/2023 2:21 PM EST [facility] Immature Grans # 0.02 0.00 - 0.03 10*3/uL 06/29/2023 2:21 PM EST [facility] Lymphocyte # 1.84 1.00 - 4.75 10*3/uL 06/29/2023 2:21 PM EST [facility] Monocyte # 0.91 0.00 - 6.00 10*3/uL 06/29/2023 2:21 PM EST [facility] Eosinophil # 0.31 0 - 0.8 10*3/uL 06/29/2023 2:21 PM EST [facility] Basophil # 0.05 0.00 - 0.20 10*3/uL 06/29/2023 2:21 PM EST [facility] nRBC % 0.0 0 - 0 /100 WBCs 06/29/2023 2:21 PM EST [facility] nRBC # 0.00 0.00 - 0.13 10*3/uL 06/29/2023 2:21 PM EST [facility] Blood Structure of peripheral vein / Unknown Venipuncture / Unknown 06/29/2023 8:54 AM EST 06/29/2023 12:22 PM EST us Poonam Solis V, LAB BLOOD ORDERABLES Fin al Result [facility] [address] [place] [address] [address] [place] [address], from Last 3 Months or Most Recently Relevant to Health Maintenance Insurance MEDICARE [facility] SUPP AARP MEDICARE [facility] SUPP AARP Care Teams Speech Therapist Relationship Specialty Start Date End Date Poonam Solis DO [address] [place] [id number] PCP - General Family Medicine 07/07/23
--- OUTSIDE RECORDS SUMMARY | 2024-12-15 08:34 | XMS_ITS | Clinical Summary ---
Author Organization [facility] lin Address [address] [facility] [place] [address] Care Team Providers Care Senior Advisory Name Role Phone Pcp, No Primary Care Provider [phone] Allergies No known active allergies Medications ramipriL [...] Vaccine Screening: Initial Series and Booster Status ([facility]) ( - 2023- season) 2024 07/16/2020, 06/25/2020 Flu Vaccination: Ages 65+: Y early High Dose Recommended (or Modifier)([facility]) 12/08/2024 05/15/2022, 03/06/2019, 02/14/2018, Additional history exists DTaP/Tdap/Td Vaccines ([facility]) (3 - Td or Tdap) 09/23/2030 09/23/2020, 10/22/2010 Pneumococcal Vaccination Screening: Patients 50+ yrs of age ([facility]) Completed 12/26/2015, 10/22/2010 Medical Devices Not on file Care Teams Senior Advisory Relationship Specialty Start Date End Date Pcp, No PCP - General Family Medicine 06/13/24
--- NOTE | 2024-12-15 08:47 | CA_ITS ---
Acquisition Time: 2024-12-15 09:34:50 Total Exercise Time: 00:02:00 Test Indications: preop Medications: see h&p Protocol: LEXISCAN Max HR: 111 BPM 79% of Pred: 140 BPM Max BP: 132/64 mmHG Max Work Load: 1.0 METS Pharmacological stress test with Lexiscan while pt marches in his chair, with reports of dizziness and abdominal discomfort, without any arrythmias, with normotensive response to injection. Nondiagnostic EKG for ischemia. In recovery, pt feeling back to baseline after caffeine intake. Nuclear images pending. Test reviewed with Dr. Hooper. Referred By: Bar Hooper Electronically Signed By: Rayo Torres
== END ==
LOC: HO.CARD 08:23
PROVIDERS: Visit Provider Internal Medicine
DX: Z01.810 Encounter for preprocedural cardiovascular examination (principal); R94.31 Abnormal electrocardiogram [ECG] [EKG]
CPT/HCPCS: 78452; 93017; A9500; J0280; J2785

== ENCOUNTER → 2024-12-15 08:47 | Outpatient (BNV) | payer MEDICARE, SELFPAY | DX: R42 Dizziness and giddiness (principal); R10.9 Unspecified abdominal pain | CPT/HCPCS: 78452; 93016; 93018 ==

== ENCOUNTER 2025-01-25 07:36 | Day surgery (SDC) | payer MEDICARE, SELFPAY ==
--- OUTSIDE RECORDS SUMMARY | 2024-10-30 12:36 | XMS_ITS | Clinical Summary ---
Author Organization [facility] [employer] & [facility] lin Address [address] [facility] [place] [address] Care Team Providers Care Truck Trailer Mechanic Name Role Phone Pcp, No Primary Care Provider [phone] Allergies No known active allergies Medications ramipriL [...] Adults 18 yrs or above (or HM Modifier)([facility]) 12/28/1963 SDOH Screening Reminder: Adriana torres for all adults ([facility]) 12/28/1963 Zoster/Shingles Vaccine Seri es Screening: Adults aged 18+ yrs (or HM Modifiers)([facility]) (1 of 2) 12/28/1993 RSV Vaccines (1 - 1-dose 75+ series) 12/28/2018 COVID-19 Vaccine Screening: Initial Series and Booster Status ([facility]) ( - 2023- season) 2024 07/16/2020, 06/25/2020 Flu Vaccination: Ages 65+: Y early High Dose Recommended (or Modifier)([facility]) 12/08/2024 05/15/2022, 03/06/2019, 02/14/2018, Additional history exists DTaP/Tdap/Td Vaccines ([facility]) (3 - Td or Tdap) 09/23/2030 09/23/2020, 10/22/2010 Pneumococcal Vaccination Screening: Patients 50+ yrs of age ([facility]) Completed 12/26/2015, 10/22/2010 Medical Devices Not on file Care Teams Truck Trailer Mechanic Relationship Specialty Start Date End Date Pcp, No PCP - General Family Medicine 06/13/24
--- NOTE | 2024-11-14 | ECG_ITS ---
Test Reason : pre op Blood Pressure : */* mmHG Vent. Rate : 86 BPM Atrial Rate : 86 BPM P-R Int : 212 ms QRS Dur : 68 ms QT Int : 352 ms P-R-T Axes : 77 -46 53 degrees QTcB Int : 421 ms Sinus rhythm with 1st degree A-V block Left axis deviation Inferior infarct , age undetermined Abnormal ECG No previous ECGs available Referred By: Luci Merritt Electronically Signed By: Nando Diaz
[2024-11-14 13:14] VITALS: BP 119/66; PULSE 89; RESP 16; O2SAT 97; BMI 32.4
--- NOTE | 2024-11-14 13:31 | P.CONAN_ITS ---
Documented by User: Luci Merritt NP 01/23/25 13:47 HPI - Anesthesia Eval Consult details Narrative: 78yo M for C3-4 Ant Cerv Discectomy w/ fusion w/Plate, 01/25/25 Cardiac optimized. Eval with [facility] for EKG change/new infarct - echo and stress ok. No recent illness No CP/SOB with walking, yardwork CKD: follows PCP only, creat 1.7 PMFSH Active Problems Active Problems: All Active Problems Cervical spondylosis with myelopathy (Acute) Past Medical History Medical History CKD (chronic kidney disease) Arthritis HTN (hypertension) Family History Family History Mother No problems noted. Father No problems noted. Family history of problems with anesthesia: No Surgical History Surgical History Hx of arthroscopic knee surgery Hx of cholecystectomy Hx of cervical spine surgery History of bilateral carpal tunnel release History of right knee joint replacement H/O colonoscopy History of Problems with Anesthesia: No Social History Social History Are you a primary career technical counselor to a significant other at home: No Do you presently have visiting nurse or other home services: No Alcohol intake: never Patient Tobacco Use Status: Never used Tobacco Use of substances other than those prescribed or required for medical reasons: No Have you been hit, kicked, punched, or otherwise hurt by someone within the past year? If so, by whom?: No Are you DNR?: No Advance Directives: No Advance Directives Information Provided: Yes Advance Directives on File: No Poor oral hygiene: Yes Meds Allergies Allergy/AdvReac Type Severity Reaction Status Date / Time No Known Allergies Allergy Verified 11/13/24 09:57 Home Medications ?Medication ?Instructions ?Recorded ?Confirmed ?Last Taken ?Type ramipril 5 mg capsule 5 mg PO BEDTIME 11/14/2401/24/25 History Exam Height,Weight and Vital Signs: Height 5 ft 10 in Weight 102.512 kg Last Vital Signs Pulse 89 11/14/24 13:14 Resp 16 11/14/24 13:14 BP 119/66 11/14/24 13:14 Pulse Ox 97 11/14/24 13:14 O2 Del Method Room Air 11/14/24 13:14 Pertinent Lab Results Pertinent Lab Results: CBC and BMP 11/08/2024 OK - creat elevated 1.7 Narrative Narrative: EKG 11/2024 Vent. Rate : 86 BPM Atrial Rate : 86 BPM P-R Int : 212 ms QRS Dur : 68 ms QT Int : 352 ms P-R-T Axes : 77 -46 53 degrees QTcB Int : 421 ms Sinus rhythm with 1st degree A-V block Left axis deviation Inferior infarct , age undetermined Abnormal ECG No previous ECGs available ECHO 2024 Conclusions: - The left ventricular systolic function is normal. The calculated ejection fraction is 56% by biplane method. - There is moderate calcification of the aortic valve. No significant aortic stenosis. NM cardiolite stress test 2024 Impression: 1. Myocardial perfusion imaging study shows likely normal myocardial perfusion 2. Gated LVEF is greater than 55% 3. Transient ischemic dilatation not present Nondiagnostic changes on EKG. Airway Loose/Missing/Broken Teeth: Yes (broken and missing teeth throughout) Heart: RRR Lungs: CTAB Assessment and Plan Assessment Anesthesia Assessment: Anesthesia Plan Discussed and PAT Visit Final Anesthetic Review Family History of Problems with Anesthesia: No History of Problems with Anesthesia: No Documented by User: Femi Sotomayor MD 01/25/25 08:54 [facility] Past Medical History Medical History CKD (chronic kidney disease) Arthritis HTN (hypertension) Functional capacity: independent ambulation Family History Family History Mother No problems noted. Father No problems noted. Surgical History Surgical History Hx of arthroscopic knee surgery Hx of cholecystectomy Hx of cervical spine surgery History of bilateral carpal tunnel release History of right knee joint replacement H/O colonoscopy Social History Social History Are you a primary career technical counselor to a significant other at home: No Do you presently have visiting nurse or other home services: No Alcohol intake: never Patient Tobacco Use Status: Never used Tobacco Use of substances other than those prescribed or required for medical reasons: No Have you been hit, kicked, punched, or otherwise hurt by someone within the past year? If so, by whom?: No Are you DNR?: No Advance Directives: No Advance Directives Information Provided: Yes Advance Directives on File: No Poor oral hygiene: Yes Meds Allergies Allergy/AdvReac Type Severity Reaction Status Date / Time No Known Allergies Allergy Verified 11/13/24 09:57 Home Medications ?Medication ?Instructions ?Recorded ?Confirmed ?Last Taken ?Type ramipril 5 mg capsule 5 mg PO BEDTIME 11/14/2401/24/25 History Exam Exam Date and Time: 01/25/2025 Airway Mallampati Class: II TM Dist: >3cm Neck ROM: Full Other: normal Assessment and Plan Assessment Anesthesia Assessment: Anesthesia Plan Discussed Final Anesthetic Review NPO: Yes ASA Class: II Final Preanesthetic Review: No Changes in Pt Med Stat, Meds/Allgs Chart Reviewed, Consent Obtained/Reviewed and Anes Risks/Benef Reviewed Patient Risk: Intermediate Procedure Risk: Intermediate Anesthetic Plan Anesthetic Plan: GA Disposition: Standard PACU
--- NOTE | 2025-01-23 16:22 | PM.DS ---
DS: Providers Provider Date of Service: 01/25/25 Date of discharge: 01/25/25 Primary care physician: Unknown Physician Admitting clinician: Malik Cevallos DS: Diagnosis Discharge Diagnosis (1) Cervical spondylosis with myelopathy: Status: Acute DS: Summary Time Attestation Discharge Coordination Time (in mins): 6 Quality: Safe Use of Opioids Does Pt have an Active Cancer Diagnosis on the Problem List?: No Quality: Stroke Does the patient have a stroke diagnosis?: No Physical Exam Vital Signs: Vital Signs: Last Vital Signs Pulse 89 11/14/24 13:14 Resp 16 11/14/24 13:14 BP 119/66 11/14/24 13:14 Pulse Ox 97 11/14/24 13:14 O2 Del Method Room Air 11/14/24 13:14 BMI result Body Mass Index 32.4 Discharge Plan Discharge Patient Disposition: Home, Self-Care Referrals: Physician,Unknown J [Primary Care Provider, Medical] - 1 Week Discharge Medications: New oxycodone 5 mg tablet 5 mg PO Q4H PRN (Reason: pain) Qty: 20 0RF Rx Instructions: Partial Fill upon patient request. docusate sodium [Colace] 100 mg capsule 100 mg PO BID Qty: 20 0RF Continued ramipril 5 mg capsule 5 mg PO BEDTIME Discharge Orders: Discharge Order (Routine); Ordered 01/25/25 Ordered By: Jeremy Olivarez Diet: Advance to usual diet Activity on Discharge: As tolerated Activity Restrictions/Additional Instructions: After your spinal surgery we ask you to observe the following restrictions/guidelines: Activity: It is normal to feel some discomfort as you increase your activity, but that will improve with time. We ask you avoid heavy lifting or acitivities that cause pain. As a general rule, 8lbs is a safe limit for lifting right after surgery. Walk as much as you feel comfortable but not to exhaustion. You will feel extra tired the first few days after surgery. Stay well hydrated. It is OK to walk up and down stairs You may return to driving when you are off narcotics (such as vicodin, oxycodone, dilaudid, etc), and you are back to normal functional capacity. If you have any concerns please check with office before driving. Return to work is specific to each patient and each surgery, so please speak with your doctor/PA at first follow up. Please bring paperwork such as FMLA at that time if you need it filled out. Medications: For optimum pain control, it is best to start with a combination of 500 mg of Tylenol every 4 hours with 600 mg of Motrin every 8 hours, and use narcotics as needed in between for breakthrough pain. We will give you a short supply of narcotics after surgery (usually one weeks worth). If you need more please call the office but do not use more than prescribed. You will need to give our office 48 hours notice if you need narcotics refilled and we do not fill narcotics on weekends or evenings. If you are on a narcotic, it is a good idea to take a stool softener such as colace or senna to avoid constipation If you take blood thinner such as aspirin, Plavix, Coumadin, Effient, Eliquis etc for conditions such as Afib, DVT, Pulmonary embolus, coronary disease, stents etc please speak with your surgeon about specific details as to when you can resume these medications. Follow up: Please call the office, , after surgery to arrange a 3 week follow up for wound check. Wound Care: You may remove your dressing on the first day after surgery. ?You may ?leave open to air. Please do not remove the steri strips underneath. they will fall off on their own in one week. IT IS NORMAL FOR THE WOUND TO OOZE OR BE BLOODY FOR A FEW DAYS AFTER SURGERY. ?IF THIS HAPPENS JUST PLACE NEW DRESSING OVER IT TO AVOID STAINING CLOTHES. You may shower on post op day # 1 We ask that you do not let the water soak the wound. If it does get wet, just towel dry lightly. Please do not scrub your incision or place any type of chemical/ointment on the wound. No tub baths, pools or jacuzzis for one month. If you have any leaking or redness from your wound, or fevers, please call office Print Language: Georgian
[2025-01-25] VITALS (11 sets, daily range): BP systolic 120–144; BP diastolic 43–78; PULSE 58–78; RESP 13–20; TEMP 36.3–36.6; O2SAT 95–100
--- NOTE | ~2025-01-25 | FL_ITS ---
EXAMINATION: FL GUIDANCE ONLY HISTORY: C3-4 ACDF COMPARISON: Correlation is made with plain films of the cervical spine dated 10/27/2024. TECHNIQUE: Fluoroscopy time: Less than 1 minute. Cumulative Dose: 0.932 mGy. DAP: 0.174 mGym2 Images: 2. FINDINGS: Fluoroscopic spot films of the cervical spine demonstrate anterior fusion of C3 and C4 with plate and screws and an intervertebral spacer. FL/FL guidance in OR IMPRESSION: Fluoroscopy during procedure. Please see procedure report for additional information. Electronically signed by: Bam Alexandra MD 01/25/2025 10:48 AM EDT
[2025-01-25] MEDS: Lactated Ringers 1,000 ML 100 ML IVCONT (08:34)
--- NOTE | 2025-01-25 08:42 | MHC.SHP ---
Pre-Procedural Eval Section A - 24 Hr Update-Section A only Date of Service: 01/25/25 The patient is an INPATIENT: No Section B - Complete if H&P > 30 days Chief Complaint: Other spondylosis with myelopathy, cervical region Details of Present Illness: Cervical myelopathy bilateral hand numbness Allergies: Allergies Allergy/AdvReac Type Severity Reaction Status Date / Time No Known Allergies Allergy Verified 11/13/24 09:57 Review of Systems Sugical H&P ROS: Negative: Constitution, Cardiovascular, Respiratory, Neurological, Psychiatric, Hem-Onc, Allergic/Immunologic, Gastrointestinal, Genitourinary, Musculoskeletal, Integumentary, Endocrine and Eyes/Ears/Nose/Throat Exam Surgical H&P Exam: Normal: HEENT, Normal: Heart, Normal: Lungs, Normal: Extremities, Normal: Abdomen, Normal: Skin and Normal: Neurological (Wake alert) Plan Diagnosis/Plan: Unchanged I have reviewed the history and physical and performed a pertinent physical examination on my patient. No changes have occurred unless specified. ACDF C3-C4 Time Spent With Patient Time: Total time managing care of this patient today 5 ____ minutes.
--- NOTE | 2025-01-25 10:38 | P.OP_ITS ---
Operative Note Operative Note Date of Service: 01/25/25 Narrative: Preoperative Diagnosis: Cervical myelopathy due to C3-C4 spondylolisthesis Procedure: C3-C4 Anterior discectomy, arthrodesis and implantation cage ; C3-C4 anterior instrumentation ; local autograft; microscope Informed Consent was obtained for this operation. I have explained the nature, purpose and benefits of the operation. I have discussed the risks and benefit of the operation including possible complications or adverse events with patient/family. Alternative(s) were discussed with the patient with their relative benefits and risks as well as the consequences of not accepting the operation were included in obtaining consent. Surgeon: STAN SHAW MD, PHD Procedure Assisted By: altaf Cota Description of Procedure: This patient is suffering from symptoms of cervical myelopathy due to i nstability at C3-C4 with the adjacent degenerative disc disease and spinal cord compression. He was offered an anterior diskectomy and fusion C3-C4. The procedure complications were explained. The patient was consented. The patient was brought to the operating room and endotracheally intubated. The patient was put in supine position with slight extension of the neck. Prep and drape was done followed by timeout. A mid cervical incision was made followed by opening of the platysma. The prevertebral fascia was reached following the natural planes while the physician seed analysis laboratory assistant provided manual retraction. The prevertebral fascia was opened to expose the disc space. A spinal needle was placed in the disk space to confirm the correct level with xray. The longus colli muscles were released bilaterally and a self retaining retractor was inserted. Two Edwards pins were placed in the C3-C4 vertebral bodies and distraction was give over the interspace. The discectomy was completed toward the posterior annulus of the disc. The microscope was brought in. The remainder of the discectomy was completed. The posterior ligament was opened and resected to expose the underlying dura. Osteophytes were resected from the body of C3 and C4 to decompress the spinal cord and saved for autograft. Bilateral foraminotomies were done. The endplates were prepared after which a 7 mm cage filled with autograft was inserted into the disc space. A 12 mm anterior plate was locked down with for x 14 mm screws as anterior instrumentation. Final x- rays in AP and lateral projection showed a satisfactory position of the implant and anterior instrumentation. The physician seed analysis laboratory assistant took over. The Edwards pin was removed. Hemostasis was done. He closed the incision in 2 layers with a 3-0 Vicryl. Steri-Strips used to approximate incision. An OpSite with Tegaderm was used to cover the incision. All sponge and needle counts were correct. Patient was extubated and transported in stable is to recovery room. Anesthesia: General Estimated Blood Loss (ml): 15 Duration of Surgery: 60 minutes Postoperative Plan: Discharge home Complications: None
== END 2025-01-25 13:41 | disposition home or self-care (01) ==
LOC: HO.SSS 07:37
PROVIDERS: Visit Provider Neurological Surgery
PROC: (CPT 22551; principal; 2025-01-25 09:00)
DX: M43.12 Spondylolisthesis, cervical region (principal); M47.12 Other spondylosis with myelopathy, cervical region; I12.9 Hypertensive chronic kidney disease with stage 1 through stage 4 chronic kidney disease, or unspecified chronic kidney disease; N18.9 Chronic kidney disease, unspecified; R94.31 Abnormal electrocardiogram [ECG] [EKG]; Z79.899 Other long term (current) drug therapy; Z98.890 Other specified postprocedural states; Z96.651 Presence of right artificial knee joint
CPT/HCPCS: 22551; 22853; 20936; 22845; 93005; C1713; J0131; J0330; J0690; J1100; J1171; J2003; J2250; J2405; J2704; J3010

== ENCOUNTER → 2025-01-25 07:36 | Outpatient (BNV) | payer MEDICARE, SELFPAY | PROVIDERS: Visit Provider Neurological Surgery | DX: M50.01 Cervical disc disorder with myelopathy, high cervical region (principal); M47.12 Other spondylosis with myelopathy, cervical region | CPT/HCPCS: 20936; 22551; 22845; 22853; 99499 ==

== ENCOUNTER 2025-02-05 13:54 | Outpatient (AMB) | payer MEDICARE, SELFPAY ==
--- NOTE | 2025-02-05 14:14 | HO.SPINEOV ---
Intake Visit Reasons: postop wound check Intake Note: Mr. Mendoza is here for a wound check. Delivery Architect Required: No Allergies No Known Allergies Allergy (Verified 02/05/25 14:24) Assessment & Plan Assessment & Plan (1) Cervical spondylosis with myelopathy: Code(s): M47.12 - Other spondylosis with myelopathy, cervical region Category: Medical Plan Mr Mendoza is here in follow-up. He underwent a C3-4 anterior cervical diskectomy with the plate for cervical myelopathy about a week and a half ago. He came in today for a wound check because his incision was feeling lumpy, and he was having some trouble swallowing earlier in his recovery. The numbness in his hands has gotten significantly better, however he still has a bit of numbness along his index finger in his thumb. He was previously diagnosed with carpal tunnel on an EMG he tells me, despite having carpal tunnel done on his right hand a number of years ago by Dr. Cevallos. I examined him today, he is able to stand up on his own, still has some mild hand strength issue, negative Tinel's, negative Phalen's. His wound is healing up very nicely, there is some subcutaneous scar tissue or maybe a small hematoma just under the skin that is a bit lumpy and firm. There is no signs of infection. I took x-rays today, and this shows stable positioning of the hardware, with no translation or movement of the hardware with flexion or extension. I reassured him that the hardware is in good position, and then I suspect what he is dealing with here just postoperative scar tissue and maybe a small hematoma. This will be his 2nd surgery going through the front of the neck. That can make things a little more complicated, also given the fact that it is higher up in the cervical spine. He also wanted to talk about his experience postoperatively that he had a corneal abrasion. He had to follow up with his relay technician the day of surgery and he was a bit frustrated at that, but ultimately it did get treated and that resolved. Today his eye looks normal with no signs of redness. He would like to follow-up in another week and a half to discuss possibly going back to work. Jeremy Cevallos MD, PhD [facility] Orders: Orders XR cervical spine 4V Today M47.12 - Other spondylosis with myelopathy, cervical region Coding Level of Care Code Est Pt Level 3 (45626) Diagnoses Cervical spondylosis with myelopathy M47.12
--- OUTSIDE RECORDS SUMMARY | 2025-02-05 15:37 | XMS_ITS | Encounter Summary ---
Author Organization [facility] Address [address] [place] [address] Care Team Providers Care Instrument Technologist Name Role Phone Luisa Otoole DO, Diana Primary Care Provider + Reason for Visit * Reason Onset Date Comments Surgery today 01/1101/11/2025 Encounter Details Date Type Department Care Team (Late st Contact Info) Description 01/11/2025 Telephone [facility] [address] [facility] Family Practice Department [address] [place] [address] Poonam Moran DO [address] [place] [address] Surgery today 01/11 Social History Tobacco Use Types Packs/Day Years Used Date Smoking Tobacco: Never Passive Smoke Exposure: Never Smokeless Tobacco: Never Comments:: Alcohol Use Standard Drinks/Week Comments Yes 0 (1 standard drink = 0.6 oz pur e alcohol) [facility] Utilities Answer Date Recorded In the past 12 months has e [employer], gas, oil, or water [email or web address] threatened to shut off services in your [...] AM EST Sexual Orientation Not on file documented as of this encounter Miscellaneous Notes * Telephone Encounter - Tamica Weaver - 01/11/2025 8:18 AM EDT [facility] anesthesia dept calling because the pt is having surgery today and the anesthesiologist is requesting a copy of the most recent OV notes. FAX [phone] Attention MIKE CB [phone] documented in this encounter Plan of Treatment Upcoming Encounters Date Type Department Care Team (Late st Contact Info) Description 06/01/2025 11:00 AM EST Office Visit [address] Family Practice Department [address] [place] [address] Poonam Moran DO [address] [place] [address] documented as of this encounter Visit Diagnoses Not on filedocumented in this encounter Care Teams Instrument Technologist Relationship Specialty Start Date End Date Poonam Moran DO [address] [place] [address] PCP - General Family Medicine 07/07/23 documented as of this encounter
--- OUTSIDE RECORDS SUMMARY | 2025-02-05 15:37 | XMS_ITS | Clinical Summary ---
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) 12/18/2024 Telephone [facility] [address] [place] [address] Geetha Domínguez LPN from Last 3 Months Social History Tobacco Use Types Packs/Day Years Used Date Smoking Tobacco: Never Smokeless Tobacco: Never Tobacco Cessation:Counseling Given: Not Answered PHQ-2 Answer Date Recorded PHQ-2 Score Yes, PHQ2 12/22/2024 Sex and Gender Information Value Date Recorded Sex Assigned at Not on file Legal Sex Male 8:33 AM EST Gender Identity Not on file Sexual Orientation Not on file Last Filed Vital Signs Vital Sign Reading Time Taken Comments Blood Pressure 128/73 12/22/2024 3:07 PM EDT Pulse 96 12/22/2024 3:07 PM EDT Temperature 36.7 C (98.1 F) 12/22/2024 3:07 PM EDT Respiratory Rate 18 12/22/2024 3:07 PM EDT Oxygen Saturation 98% 12/22/2024 3:07 PM EDT Inhaled Oxygen Concentration - - Weight 99.8 kg (220 lb) 12/22/2024 3:07 PM EDT Height 177.8 cm (5' 10 ) 12/22/2024 3:07 PM EDT Body Mass Index 31.57 12/22/2024 3:07 PM EDT Plan of Treatment Health Maintenance Due Date Last Done Comments SDOH Screening Reminder: Adriana torres for all adults ([facility]) 12/28/1963 Zoster/Shingles Vaccine Seri es Screening: Adults aged 18+ yrs (or HM Modifiers)([facility]) (1 of 2) 12/28/1993 RSV Vaccines (1 - 1-dose 75+ series) 12/28/2018 Flu Vaccination: Ages 65+: Y early High Dose Recommended (or Modifier)([facility]) 12/08/2024 05/15/2022, 03/06/2019, 02/14/2018, Additional history exists COVID-19 Vaccine Screening: Initial Series and Booster Status ([facility]) ( - 2024- season) 2025 07/16/2020, 06/25/2020 Depression: Screening Annual ly using PHQ-2/9 in Adults 18 yrs or above (or HM Modifier)([facility]) 12/22/2025 12/22/2024 DTaP/Tdap/Td Vaccines ([facility]) (3 - Td or Tdap) 09/23/2030 09/23/2020, 10/22/2010 Pneumococcal Vaccination Screening: Patients 50+ yrs of age ([facility]) Completed 12/26/2015, 10/22/2010 Medical Devices Not on file Procedures Procedure Name Priority Date/Time Associated Diagnosis Comments POCT URINALYSIS DIPSTICK Routine 12/22/2024 3:36 PM EDT 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 Negative [facility] [id number] pH, UA 5.0 4.6 - 8.0 TRU[facility]I [id number] Protein, UA Trace [facility] [id number] Urobilinogen, UA Normal [facility]I [id number] Nitrite, UA Negative TRUPTI [id number] Leukocytes, UA Negative CHARL TON [id number] INTERNAL CONTROLS VALID Yes--Test working appropriately TRUPTI [id number] Expiration Date 01/07/2025 TRU[facility]I [id number] Lot Number [id number] TRUPTI [id number] TEST BRAND NAME _ UA Siemens Multistix 10SG TRUPTI [id number] Urine 12/22/2024 3:36 PM EDT us Mat Costa NP POINT OF CARE TEST ORDERABLES Fi nal Result TR[facility]I [id number] [address] [facility] [place] [address], [place] from Last 3 Months Care Teams Life Care Planner Relationship Specialty Start Date End Date Pcp, No PCP - General Family Medicine 06/13/24
--- OUTSIDE RECORDS SUMMARY | 2025-02-05 15:37 | XMS_ITS | Encounter Summary ---
Author Organization [facility] Address [address] [place] [address] Care Team Providers Care Transit Police Officer Name Role Phone Pcp, No Primary Care Provider [phone] Encounter Details Date Type Department Care Team (Late st Contact Info) Description 12/18/2024 Telephone [facility] [address] [place] [address] Geetha Domínguez LPN [address] [place] [address] Social History Tobacco Use Types Packs/Day Years Used Date Smoking Tobacco: Never Smokeless Tobacco: Never PHQ-2 Answer Date Recorded PHQ-2 Score Yes, PHQ2 12/22/2024 Sex and Gender Information Value Date Recorded Sex Assigned at Not on file Legal Sex Male 8:33 AM EST Gender Identity Not on file Sexual Orientation Not on file documented as of this encounter Functional Status * Is the person deaf or does he/she have serious difficulty hearing? Answer Date of Assessment Author * Is this person blind or does he/she have serious difficulty seeing even when wearing glasses? Answer Date of Assessment Author * Does this person have serious difficulty walking or climbing stairs? Answer Date of Assessment Author * Does this person have difficulty dressing or bathing? Answer Date of Assessment Author * Because of a physical, mental, or emotional condition, does this person have difficulty doing errands alone such as visiting a doctor's office or shopping? Answer Date of Assessment Author documented as of this encounter Mental Status * Because of a physical, mental, or emotional condition, does this person have serious difficulty concentrating, remembering, or making decisions? Answer Entry Date Author documented in this encounter Miscellaneous Notes * Telephone Encounter - Geetha Domínguez LPN - 12/18/2024 3:13 PM EDT Call [employer] Call being placed to:: Patient Call Reason (PT) What is the reason for the call?: Other Other Call Reason:: Clinic Closed on scheduled appt day 12/20/24 documented in this encounter Plan of Treatment Not on file documented as of this encounter Visit Diagnoses Not on filedocumented in this encounter Care Teams Transit Police Officer Relationship Specialty Start Date End Date Pcp, No PCP - General Family Medicine 06/13/24 documented as of this encounter
--- OUTSIDE RECORDS SUMMARY | 2025-02-05 15:38 | XMS_ITS | Clinical Summary ---
Author Organization [facility] Address [address] [place] [address] Care Team Providers Care Farm Instructor Name Role Phone Luisa Otoole DO Poonam Primary Care Provider + Allergies No known active allergies Medications cholecalciferol [...] (11/09/2024 1:45 PM EDT): Seen at [facility] ER and admitted for abnormal CT concern for septic arthritis left hip, left hospital with 5 day supply of Oxycodone and advised to follow up with Ortho and have IR procedure, left hospital AMA, will request Urgent referral for Ortho at [facility] per patient request and advised to return to the ER with any worsening pain, fever or chills. Continues with Oxycodone for the pain. Abnormal CT scan, pelvis 11/09/2024 Assessment & Plan (11/09/2024 1:42 PM EDT): Admitted to [place] ER and transferred to [facility] ER for back and hip pain, CT scan noted complex fluid collection in the right iliopsoas bursa with concern for septic hip with plan for inpatient IR procedure, WBC were not elevated, BP normal, was not admitted with sepsis, per patient he left AMA. Will request consult with Ortho at [facility] Urgently, discuss with Dr. Solis IR [...] Elevated ferritin level 05/27/2023 Assessment & Plan (12/22/2024 4:33 PM EDT): Hx of elevated ferritin level, trending up at 853. Was referred to hematology for further management. Orders: CBC Auto Differential; Future Assessment & Plan (09/29/2024 4:31 PM EDT): [...] chronic kidney disease 05/27/2023 Assessment & Plan (12/22/2024 4:33 PM EDT): BP elevated. Reports lower home BP readings. Continue ramipril 5 mg daily. Low sodium diet and regular exercise reviewed. We discussed if he were to dehydrated from a respiratory infection or other process to hold ramipril to prevent further dehydration. Nephrology referral recommended, but declines for now. BP check in 3-5 months. Orders: Comprehensive Metabolic Panel; Future Phosphorus; Future Assessment & Plan (09/29/2024 4:31 PM EDT): [...] STAGE III (MODERATE, EGFR 30- 59 ML/MIN) ([facility]) WRITTEN ON 07/10/2024 5:21 PM BY POONAM SOLIS V, DO Increasing renal impairement. GFR is 36, Cr baseline ~1.5. Recommend maintaining adequate hydration, avoid nephrotoxic agents. BP is well controlled. Continue ACEi. Referral to in house cra. Orders: Microalbumin / creatinine, urine ratio (Lab Collect); Future Basic metabolic panel; Future Hemoglobin A1c; Future PTH, intact; Future Assessment & Plan (09/19/2024 1:11 PM EDT): >>ASSESSMENT AND PLAN FOR BENIGN HYPERTENSION WITH STAGE 3B CHRONIC KIDNEY DISEASE ([facility]) WRITTEN ON 11/25/2023 9:28 AM BY POONAM SOLIS V, DO BP stable. Continue lisinopril 5 mg daily. Low sodium diet and regular exercise reviewed. >>ASSESSMENT AND PLAN FOR KIDNEY DISEASE, CHRONIC, STAGE III (MODERATE, EGFR 30- 59 ML/MIN) ([facility]) WRITTEN ON 11/25/2023 4:18 PM BY POONAM SOLIS V, DO Increasing renal impairement. GFR is 36, Cr baseline ~1.5. Recommend maintaining adequate hydration, avoid nephrotoxic agents. BP is well controlled. Continue ACEi. Referral to in house cra. Assessment & Plan (09/19/2024 1:11 PM EDT): >>ASSESSMENT AND PLAN FOR BENIGN HYPERTENSION WITH STAGE 3B CHRONIC KIDNEY DISEASE ([facility]) WRITTEN ON 09/30/2023 9:34 AM BY POONAM SOLIS V, DO BP stable. Continue lisinopril 5 mg daily. Low sodium diet and regular exercise reviewed. >>ASSESSMENT AND PLAN FOR KIDNEY DISEASE, CHRONIC, STAGE III (MODERATE, EGFR 30- 59 ML/MIN) ([facility]) WRITTEN ON 09/30/2023 9:36 AM BY POONAM Otoole DO Encourage hydration. Cr 1.5 at baseline. Continue to monitor. Assessment & Plan (05/27/2023 5:30 PM EST): BP stable. Continue lisinopril 5 mg daily. Low sodium diet and regular exercise reviewed. Labs ordered. BP check in 6 months. 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 Assessment & Plan (09/30/2023 9:37 AM EDT): Diet and exercise modifications reviewed. Assessment & Plan (05/27/2023 5:32 PM EST): Diet and exercise modifications reviewed. Prediabetes 05/27/2023 Assessment & Plan (12/22/2024 4:33 PM EDT): Recheck level. Orders: Hemoglobin A1c; Future Primary osteoarthritis of left hip 05/27/2023 S/P [...] knee 05/27/2023 0 05/27/2023 Constipation 05/27/2023 05/27/2023 Encounters Date Type Department Care Team Description 01/11/2025 Telephone [facility] [address] Family Practice Department [address] [place] [phone] Poonam Solis V, Surgery today 01/1112/22/2024 10:00 AM EDT Follow-Up [address] Department [address] [place] [phone] Poonam Solis V, Benign hypertension with stage 3b chronic kidney disease (HCC) (Primary Dx); Elevated ferritin level; Prediabetes; Obesity (BMI 30-39.9) 12/22/2024 Results Follow-Up [address] Department [address] [place] [phone] Poonam Solis DO 11/15/2024 9:00 AM EDT Office Visit [facility] [address] [facility] Orthopedic Department [address] [facility] 1st [place] [address] New Garcia MD Abnormal CT scan, pelvis (Primary Dx) 11/15/2024 7:51 AM EDT - 11/15/2024 11:59 PM EDT Hospital Encounter [facility] [address] [place] [address] Abnormal CAT scan Discharge Disposition: Home or Self Care (01) 11/13/2024 Orders Only [address] Department [address] [place] [phone] Poonam Solis DO Abnormal CAT scan (Primary Dx); Pain of left hip 11/13/[address] Department [address] [place] [phone] Poonam Solis V, Follow-up 11/09/2024 11:00 AM EDT Follow-Up [address] Department [address] [place] [phone] Karlee Crump, ANIBAL Hyperkalemia (Primary Dx); Bilateral hip pain; Abnormal CT scan, pelvis; 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) 11/06/2024 Telephone [facility] [address] [facility] Family Practice Department [address] [facility] [place] [address] Poonam Solis V, DO Request For Order(s) from Last 3 Months Immunizations Immunization Administration Dates Next Due Influenza, High Dose Seasona l, Preservative Free (FLUZONE HIGH-DOSE) 03/06/2019,02/14/2018,07/01/2016,03/01 Influenza, High Dose Seasona l, Quadrivalent PF 05/15/2022 Influenza, Unspecified 03/06/2019,2017,07/01/2016,03/01,03/01/2015,04/13/2014,05/25/2013 Pneumococcal Conjugate Vacci ne, 13 Valent 12/26/2015 Pneumococcal Polysaccharide Vaccine, 23 Valent 10/22/2010 Tetanus Toxoid, Reduced Diph theria Toxoid, and Acellular Pertussis Vaccine, Adsorbed 10/22/2010 Tetanus and Diphtheria Toxoi ds, Adsorbed, Preservative Free (2 Lf of Tetanus Toxoid and 2 Lf of Diphtheria Toxoid) 09/23/2020 Family History Medical History Relation Name Comments Other Other Family history of No pertinent family history Relation Name Status Comments Other Social History Tobacco Use Types Packs/Day Years Used Date Smoking Tobacco: Never Passive Smoke Exposure: Never Smokeless Tobacco: Never Tobacco Cessation:Counseling Given: Not Answered Comments:: Alcohol Use Standard Drinks/Week Comments Yes 0 (1 standard drink = 0.6 oz pur e alcohol) [facility] Utilities Answer Date Recorded In the past 12 months has e [employer], gas, oil, or water Risk Management Solution threatened to shut off services in your [...] Sign Reading Time Taken Comments Blood Pressure 150/70 12/22/2024 10:02 AM EDT Pulse 100 12/22/2024 9:58 AM EDT Temperature 35.8 C (96.5 F) 12/22/2024 9:58 AM EDT Respiratory Rate - - Oxygen Saturation 97% 12/22/2024 9:58 AM EDT Inhaled Oxygen Concentration - - Weight 101.6 kg (224 lb) 12/22/2024 9:58 AM EDT Height 177.8 cm (5' 10 ) 12/22/2024 9:58 AM EDT Body Mass Index 32.14 12/22/2024 9:58 AM EDT Plan of Treatment Upcoming Encounters Date Type Department Care Team (Late st Contact Info) Description 06/01/2025 11:00 AM EST Office Visit [address] Family Practice Department [address] [place] [phone] Poonam Solis V, [address] [place] [address] Health Maintenance Due Date Last Done Comments CKD: Referral to Nephrology 1945 Zoster Vaccines (1 of 2) 12/28/1993 RSV Vaccine (60+ years old and patients) (1 - 1-dose 75+ series) 12/28/2018 COVID-19 Vaccine ( season) 2025 07/16/2020, 06/25/2020 Influenza Vaccine (#1) 2025 , 03/06/2019, 03/06/2019, Additional history exists Basic Metabolic Panel 04/23/2025 12/22/2024 , 07/10/2024, 11/25/2023, Additional history exists 25 Hydroxy / Vitamin D 07/10/2025 07/10/2024 PTH 07/10/2025 07/10/2024 Social Drivers of Health Annual Screening 07/10/2025 07/10/2024 Urine Microalbumin 07/10/2025 07/10/2024 Depression Screening and Follow-Up 09/19/2025 09/19/2024 Fall Risk Screening 09/19/2025 09/19/2024 Medicare AWV 09/20/2025 09/19/2024, 05/27/2023 Hemoglobin 12/22/2025 12/22/2024, 02/, 05/15/2022, Additional history exists Phosphorus 12/22/2025 12/22/2024, 11/25/2023 DTaP,Tdap,and Td Vaccines (3 - Td or Tdap) 09/23/2030 09/23/2020, 10/22/2010 Tobacco Screening 05/10/2042 12/22/2024 Pneumococcal Vaccine: 50+ Years Completed 12/26/2015, 10/22/2010 Health Care Proxy Review Completed 09/19/2024, 05/10 Alcohol/Substance Use Screening Completed 12/22/2024 Hepatitis B Vaccines Aged Out No long er eligible based on patient's age to complete this topic Procedures * Due to [place] state law, this organization might not be sharing negative HIV tests. Procedure Name Priority Date/Time Associated Diagnosis Comments PHOSPHORUS Routine 12/22/2024 10:54 AM EDT Benign hypertension with stage 3b chronic kidney disease (HCC) CBC AUTO DIFFERENTIAL Routine 12/22/2024 10:54 AM EDT Elevated ferritin level COMPREHENSIVE METABOLIC PANEL Routine 12/22/2024 10:54 AM EDT Benign hypertension with stage 3b chronic kidney disease (HCC) HEMOGLOBIN A1C Routine 12/22/2024 10:54 AM EDT Prediabetes XR HIP LEFT 2+ VIEW W PELVIS [...] unspecified type Stage 3b chronic kidney disease from Last 3 Months or Most Recently Relevant to Health Maintenance Results * Due to [place] state law, this organization might not be sharing negative HIV tests. * (ABNORMAL) CBC Auto Differential (12/22/2024 10:54 AM EDT) WBC 7.5 4.8 - 10.8 10*3/uL 12/22/2024 2:09 PM EDT [facility] RBC 3.80(L) 4.70 - 6.10 10*6/uL 12/22/2024 2:09 PM EDT [facility] Hemoglobin 12.3(L) 13.7 - 16.5 g/dL 12/22/2024 2:09 PM EDT [facility] Hematocrit 36.2(L) 40.5 - 48.5 % 12/22/2024 2:09 PM EDT [facility] MCV 95.3(H) 80.0 - 94.0 fL 12/22/2024 2:09 PM EDT [facility] MCH 32.4 26.0 - 34.0 pg 12/22/2024 2:09 PM EDT [facility] MCHC 34.0 31.0 - 36.0 g/dL 12/22/2024 2:09 PM EDT [facility] RDW 13.4 12.0 - 15.0 % 12/22/2024 2:09 PM EDT [facility] RDW Standard Deviation 47.8(H) 35.1 - 43.9 fL 12/22/2024 2:09 PM EDT [facility] Platelets 347 140 - 440 10*3/uL 12/22/2024 2:09 PM EDT [facility] MPV 10.6 9.4 - 12.4 fL 12/22/2024 2:09 PM EDT [facility] Neutrophil % 62.7 50.0 - 75.0 % 12/22/2024 2:09 PM EDT [facility] Immature Grans % 0.3 0.0 - 0.9 % 12/22/2024 2:09 PM EDT [facility] Lymphocyte % 20.6 20.0 - 44.0 % 12/22/2024 2:09 PM EDT [facility] Monocyte % 12.1 0.0 - 14.0 % 12/22/2024 2:09 PM EDT [facility] Eosinophil % 3.8 0.0 - 5.0 % 12/22/2024 2:09 PM EDT [facility] Basophil % 0.5 0.0 - 2.0 % 12/22/2024 2:09 PM EDT [facility] Neutrophil # 4.73 1.80 - 7.70 10*3/uL 12/22/2024 2:09 PM EDT [facility] Immature Grans # <0.03 0.00 - 0.03 10*3/uL 12/22/2024 2:09 PM EDT [facility] Lymphocyte # 1.60 1.00 - 4.75 10*3/uL 12/22/2024 2:09 PM EDT [facility] Monocyte # 0.90(H) 0.00 - 0.60 10*3/uL 12/22/2024 2:09 PM EDT [facility] Eosinophil # 0.30 0.00 - 0.80 10*3/uL 12/22/2024 2:09 PM EDT [facility] Basophil # <0.03 0.00 - 0.20 10*3/uL 12/22/2024 2:09 PM EDT [facility] nRBC % 0.0 0 - 0 /100 WBCs 12/22/2024 2:09 PM EDT [facility] nRBC # <0.01 0.00 - 0.13 10*3/uL 12/22/2024 2:09 PM EDT [facility] Blood Structure of peripheral vein / Unknown Venipuncture / Unknown 12/22/2024 10:54 AM EDT 12/22/2024 1:16 PM EDT us Poonam Immenhausen V, DO LAB BLOOD ORDERABLES Fin al Result Performing Organization Address City/[facility]/ZIP Co de Phone Number [facility] [address] [address], [place] [phone] * Phosphorus (12/22/2024 10:54 AM EDT) Phosphorus 2.5 2.5 - 4.5 mg/dL 12/22/2024 2:46 PM EDT [facility] Blood Structure of peripheral vein / Unknown Venipuncture / Unknown 12/22/2024 10:54 AM EDT 12/22/2024 1:15 PM EDT us Poonam Immenhausen V, DO LAB BLOOD ORDERABLES Fin al Result Performing Organization Address [facility] de Phone Number [facility] [address] [address], [place] [phone] * (ABNORMAL) Hemoglobin A1c (12/22/2024 10:54 AM EDT) Hemoglobin A1c 6.5(H) 4.0 - 5.7 % 12/22/2024 2:20 PM EDT [facility] Estimated Average Glucose 140 mg/dL 12/22/2024 2:20 PM EDT [facility] Blood Structure of peripheral vein / Unknown Venipuncture / Unknown 12/22/2024 10:54 AM EDT 12/22/2024 1:15 PM EDT us Poonam Immenhausen V, DO LAB BLOOD ORDERABLES Fin al Result Performing Organization Address [facility]/ZIP Co de Phone Number [facility] [address] [address], [place] [phone] * (ABNORMAL) Comprehensive Metabolic Panel (12/22/2024 10:54 AM EDT) NA 139 136 - 145 mmol/L 12/22/2024 2:46 PM EDT [facility] K 4.8 3.5 - 5.1 mmol/L 12/22/2024 2:46 PM EDT [facility] Cl 104 98 - 109 mmol/L 12/22/2024 2:46 PM EDT [facility] CO2 21(L) 22 - 32 mmol/L 12/22/2024 2:46 PM EDT [facility] Anion Gap 19 >=0 12/22/2024 2:46 PM EDT [facility] Glucose 100(H) 60 - 99 mg/dL 12/22/2024 2:46 PM EDT [facility] Creatinine 1.74(H) 0.50 - 1.12 mg/dL 12/22/2024 2:46 PM EDT [facility] Calcium 9.9 8.4 - 10.4 mg/dL 12/22/2024 2:46 PM EDT [facility] Total Protein 7.6 6.6 - 8.7 g/dL 12/22/2024 2:46 PM EDT [facility] Albumin 4.1 3.5 - 5.0 g/dL 12/22/2024 2:46 PM EDT [facility] Bilirubin, Total 0.4 0.2 - 1.2 mg/dL 12/22/2024 2:46 PM EDT [facility] Alkaline Phosphatase 57 40 - 129 U/L 12/22/2024 2:46 PM EDT [facility] AST 25 0 - 40 U/L 12/22/2024 2:46 PM EDT [facility] ALT 15 <=41 U/L 12/22/2024 2:46 PM EDT [facility] BUN 33(H) 8 - 23 mg/dL 12/22/2024 2:46 PM EDT [facility] eGFR 39(L) >=60 mL/min/1. 73m2 12/22/2024 2:46 PM EDT [facility] Comment:The estimated glomer ular filtration [...] of Race in Diagnosing Kidney Disease . Globulin, Total 3.5 2.1 - 4.2 g/dL 12/22/2024 2:46 PM EDT [facility] A/G Ratio 1.2(L) 1.5 - 3.0 12/22/2024 2:46 PM EDT [facility] Blood Structure of peripheral vein / Unknown Venipuncture / Unknown 12/22/2024 10:54 AM EDT 12/22/2024 1:15 PM EDT Poonam Solis V, DO LAB BLOOD ORDERABLES Fin al Result Performing Organization Address City/State/[facility] Co de Phone Number [facility] [address] [place] [address] [address] [place] [address], [place] [phone] * XR Hip Left 2+ View W [...] to obtain the completed interpretation. Workstation ID: [id number] Narrative 11/15/2024 12:45 PM EDT Examination: Ultrasound-guided aspiration of left hip collection. History: Left hip fluid collection surrounding on outside CT. Gaggerman(s): Kiran Zambrano MD; Operative report: Preparation: Procedure, [...] and performed the procedure. Resulting Agency Comment [id number] Procedure Note Kiran Zambrano MD - 11/15/2024 Examination: Ultrasound-guided aspiration of left hip collection. History: Left hip fluid collection surrounding on outside CT. Gaggerman(s): Kiran Zambrano MD; Operative report: Preparation: Procedure, [...] possible to obtain thecompleted interpretation. Workstation ID: [id number] us Poonam Luisa V, DO IMG US PROCEDURES Final Result * Non-Gynecologic Cytology - [place] only (11/15/2024 8:49 AM EDT) Non-Gynecologic Cytology Result SEE DETAILS 11/17/2024 12:00 AM EDT [facility] Comment: FINAL DIAGNOSIS Left hip, aspiration: Negative for malignancy. Comment: The specimen is acellular, consisting of proteinaceous material. Morena Clifford M.D. Electronic Signature: 11/17/2024 09:43 Screened by: MELVINA Erickson ([facility]) Clinical History R93.89, left hip aspiration Macroscopic Description Received fresh is 1 cc of clear yellow fluid from which a liquid based cyto-preparation and cell block is made. Grossing and technical work performed at [facility] ([facility], [address] [place] [id number]; ; [id number]; CLIA #[id number]) All professional pathology services performed at [facility] ([address] [place] [id number]; ; CLIA #[id number]) Note: Some or all of the tests utilized in this case may be laboratory developed tests (LDT's) and may use class I analyte specific reagents (ASR). These tests were developed for clinical purposes and their performance characteristics determined by [facility] on tissue fixed in 10% neutral buffered formalin. Other fixatives have not been validated, and therefore results on tissue with such fixation should be interpreted with caution and in the clinical context. [facility] are qualified under the CLIA 1988 documents to provide high-complexity clinical laboratory testing. All controls are reviewed and deemed appropriate. Synovial Fluid Left hip region structure / Unknown 11/15/2024 8:49 AM EDT 11/15/2024 9:12 AM EDT Comment:Left hip aspiration us Poonam Solis V, DO LAB PATH/CYTO ([place] N) Final Result Performing Organization Address City/[facility]/ZIP Co de Phone Number [facility] [address] [place] [phone], * Anaerobic Culture (11/15/2024 8:49 AM EDT) Anaerobic Culture No anaerobes isolated. [facility] [facility] 11/18/2024 9:53 AM EDT [facility] Synovial Fluid Left hip region structure / Unknown 11/15/2024 8:49 AM EDT Comment:Left hip aspiration us Poonam Solis V, DO LAB MICROBIOLOGY - GENER AL ORDERABLES Final Result [facility] [address] [place] [address] [address] [place] [address], * Aerobic Culture w/Gram Stain (11/15/2024 8:49 AM EDT) Aerobic Culture No growth after 3 days [facility] 11/18/2024 9:53 AM EDT [facility] Gram Stain Result Few White Blood Cells Seen 11/18/2024 9:53 AM EDT [facility] Gram Stain Result Rare Red blood cells seen 11/18/2024 9:53 AM EDT [facility] Gram Stain Result No organisms seen 11/18/2024 9:53 AM EDT [facility] Synovial Fluid Left hip region structure / Unknown 11/15/2024 8:49 AM EDT Comment:Left hip aspiration us Poonam Solis V, DO LAB MICROBIOLOGY - GENER AL ORDERABLES Final Result [facility] [address] [facility] [address] [place] [address], [place] [phone] * Mycobacteria/AFB Culture and Stain (11/15/2024 8:49 AM EDT) Culture No Mycobacterium species isolated after 8 weeks incubation. 01/11/2025 2:35 PM EDT [email or web address] [facility] AFB Stain No acid-fast bacilli seen using the fluorochrome method. 01/11/2025 2:35 PM EDT [facility] Synovial Fluid Left hip region structure / Unknown 11/15/2024 8:49 AM EDT 11/15/2024 9:12 AM EDT Comment:Left hip aspiration Narrative [facility] - 01/11/2025 2:35 PM EDT [facility] Received Date: MICRO NUMBER: [id number] SPECIMEN QUALITY: Adequate SOURCE: SYNOVIAL FLUID HIP, LEFT STATUS: FINAL Poonam Solis V, DO LAB MICROBIOLOGY - GENER AL ORDERABLES Final Result Performing Organization Address City/[facility]/ZIP Co de Phone Number [facility] [address] [facility] [address], [place] [address], [place] [phone] [facility] [address] [facility] [address], [place] [address], [place] [phone] * Fungus Culture w/DARREN Stain (11/15/2024 8:49 AM EDT) Culture No fungal growth at 4 Weeks 12/14/2024 10:59 AM EDT [facility] DARREN Stain No Fungal Elements Seen 12/14/2024 10:59 AM EDT [facility] Synovial Fluid Left hip region structure / Unknown 11/15/2024 8:49 AM EDT 11/15/2024 9:12 AM EDT Comment:Left hip aspiration Narrative [facility] TOM[facility] - 12/14/2024 10:59 AM EDT [facility] Received Date: MICRO NUMBER: [id number] SPECIMEN QUALITY: Adequate SOURCE: SYNOVIAL FLUID HIP, LEFT STATUS: FINAL us Poonambry Solis V, DO LAB MICROBIOLOGY - GENER AL ORDERABLES Final Result [facility] [address] [facility] [address], [place] [address], [place] [phone] [email or web address] [facility] [address] [facility] [address], [place] [address], [place] [phone] * Crystals, Synovial Fluid (11/15/2024 8:49 AM EDT) Synovial Fluid Crystals Absent Absent [facility] 11/15/2024 9:48 AM EDT [facility] Synovial Fluid Left hip region structure / Unknown 11/15/2024 8:49 AM EDT 11/15/2024 9:13 AM EDT Comment:Left hip aspiration us Poonam Sergioenhausen V, DO LAB BODY FLUIDS AND STOO LS ORDERABLES Final Result [facility] [address] [place] [address] [address] [place] [address], [place] [phone] * (ABNORMAL) Cell Count w/Differential, Synovial (11/15/2024 8:49 AM EDT) Color, Synovial Straw Colorless , Yellow, Straw 11/15/2024 9:40 AM EDT [facility] Appearance, Synovial Clear Clear 01/2025 9:40 AM EDT [facility] TNC, Synovial 245(H) <200 cells/mm3 11/15/2024 9:40 AM EDT [facility] Mononuclear %, Body Fluid 72.2 % 11/15/2024 9:40 AM EDT [facility] Polymorphonuclear %, Body Fluid 27.8 % 11/15/2024 9:40 AM EDT [facility] Mononuclear #, Body Fluid 169 x1000 11/15/2024 9:40 AM EDT [facility] Polymorphonuclear #, Body Fluid 65 x1000 11/15/2024 9:40 AM EDT [facility] Synovial Fluid Left hip region structure / Unknown 11/15/2024 8:49 AM EDT 11/15/2024 9:13 AM EDT Comment:Left hip aspiration Narrative [facility] - 11/15/2024 9:40 AM EDT The reference intervals and other method performance specifications are unavailable for this body fluid. Comparison of the result with concentration in the blood, serum or plasma is recommended. us Poonam Solis V, DO LAB BODY FLUIDS AND STOO LS ORDERABLES Final Result Performing Organization Address City/State/[facility] Co de Phone Number [facility] [address] [facility] [address] [place] [address], [place] [phone] * PATHOLOGY - SCANNED (11/15/2024) us Onbase [...] Urine 118 mg/dL 07/10/2024 2:59 PM EST [facility] Microalbumin, Urine 372(H) <=20 mg/L 07/10/2024 2:59 PM EST [facility] Microalb/Creat Ratio, Random Urine 315.3(H) 1.3 - 30.0 mg/g 07/10/2024 2:59 PM EST [facility] Comment:Not Performed Urine Urine specimen collection, clean catch / Unknown Non-Blood Collection / Unknown 07/10/2024 12:49 PM EST 07/10/2024 12:49 PM EST Poonam tenXeriraj V, DO LAB URINE ORDERABLES Fin al Result Performing Organization Address [facility] Co de Phone Number [facility] [address] [address], [place] [phone] * (ABNORMAL) Vitamin D, 25-Hydroxy, Total, Immunoassay (07/10/2024 11:44 AM EST) Pathologist [facility] Vitamin D 25-OH 18.30(L) 30.00 - 80.00 ng/mL 07/10/2024 3:40 PM EST [facility] Blood Structure of peripheral vein / Unknown Venipuncture / Unknown 07/10/2024 11:44 AM EST 07/10/2024 12:51 PM EST Poonam tenXeriraj V, DO LAB BLOOD ORDERABLES Fin al Result Performing Organization Address [facility]/ZIP Co de Phone Number [facility] [address] [address], [place] [phone] * (ABNORMAL) PTH, intact (07/10/2024 11:44 AM EST) Pathologist [facility] Parathyroid Hormone, Intact 88.2(H) 14.5 - 87.1 pg/mL 07/10/2024 3:37 PM EST [facility] Comment: This test was performed [...] DO LAB BLOOD ORDERABLES Fin al Result [facility] [address] [facility] [facility] [address] [place] [address], [place] [phone] from Last 3 Months or Most Recently Relevant to Health Maintenance Insurance MEDICARE [facility] MEDICARE [facility] AARP Care Teams Farm Instructor Relationship Specialty Start Date End Date Poonam Solis DO [address] [place] [id number] PCP - General Family Medicine 07/07/23
--- OUTSIDE RECORDS SUMMARY | 2025-02-05 15:38 | XMS_ITS | Clinical Summary ---
Author Organization [facility] Address [address] [place] [address] Care Team Providers Care Project Designer Name Role Phone Nazario Silva Primary Care Provider [phone] Allergies No known active allergies Medications * [...] 09/24/2020 09/23/2020 COVID-19 Vaccine (3 - season) 2025 07/16/2020, 06/25/2020 Influenza (#1) 2025 03/06/2019, 10/0 12/2017, 07/01/2016, Additional history exists HPV Vaccine [...] this topic Zoster (Zostavax) Discontinued Care Teams Project Designer Relationship Specialty Start Date End Date Nazario Silva [facility] [place] [address] PCP - General 07/08/09
== END 2025-02-05 15:10 | disposition home or self-care (01) ==
LOC: HO.HNS 13:55
PROVIDERS: Visit Provider Physician Assistant
DX: M47.12 Other spondylosis with myelopathy, cervical region (principal)
CPT/HCPCS: 99024

== ENCOUNTER 2025-02-05 13:54 | Outpatient (REF) | payer MEDICARE, SELFPAY ==
--- NOTE | ~2025-02-05 | XR_ITS ---
EXAMINATION: XR CERVICAL SPINE 4-5 VIEWS HISTORY: M47.12 - Other spondylosis with myelopathy, cervical region COMPARISON: Comparison is made with the prior examination dated 10/27/2024. Correlation is also made with fluoroscopic spot films dated 01/25/2025. FINDINGS: AP, and neutral, flexion, and extension lateral views of the cervical spine are submitted. Osseous mineralization is normal. The patient is again noted to be status post anterior cervical disc fusion at C4-5 and C5-6. There is anterior fusion of C3 and C4 with plate and screws and an intervertebral spacer. The appearance is similar to the fluoroscopic spot films. There is straightening of the normal cervical lordosis. No abnormal motion is seen with flexion or extension. There is no prevertebral soft tissue swelling. XR/XR cervical spine 4V IMPRESSION: Status post anterior cervical disc fusion at C4-5 and C5-6 with additional anterior fusion of C3 and C4 with plate and screws. Straightening of the normal cervical lordosis. No abnormal motion with flexion or extension. Electronically signed by: Bam Alexandra MD 02/05/2025 03:11 PM EDT
== END 2025-02-05 13:55 | disposition home or self-care (01) ==
LOC: HO.HOSX 13:54
PROVIDERS: Visit Provider Physician Assistant
DX: Z47.89 Encounter for other orthopedic aftercare (principal); M47.12 Other spondylosis with myelopathy, cervical region; Z98.890 Other specified postprocedural states
CPT/HCPCS: 72050; 99212

== ENCOUNTER → 2025-02-05 14:49 | Outpatient (BNV) | payer MEDICARE, SELFPAY | PROVIDERS: Visit Provider Radiology Diagnostic Radiology | DX: M47.12 Other spondylosis with myelopathy, cervical region (principal) | CPT/HCPCS: 72050 ==

== ENCOUNTER 2025-02-14 13:32 | Outpatient (AMB) | payer MEDICARE, SELFPAY ==
--- NOTE | 2025-02-14 13:36 | A.SPINEOV_ITS ---
Intake Visit Reasons: 1st post op Intake Note: Mr. Kelly Conley is here today for his 1st post op. 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 He reports that subjectively his strength in his arms / hands is significantly better than it was prior to surgery. His numbness and tingling in the hands has also significantly improved, however he does still report some numbness and tingling of his 2nd and 3rd phalanges of the right hand. He reports that he has had this for at least the last 1-2 years. He recounts a history of previous cervical spine surgery, and carpal tunnel release with Dr. Cevallos about 10 years ago when he was at [facility] in [place]. 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 The report states that they are unable to adequately assess severity given that he has a history of previous carpal tunnel release on this side. Anterior incision site is closed and well healed with a small lump likely representing a seroma and/or hematoma under the skin. This is nonpainful to palpation. There is no drainage associated with this. The areas not warm. There is no erythema. No new neurological deficits. The patient is able to fully range his neck 90 degrees in lateral rotation in each direction without pain. I will provide will for it with a return to work letter. I had my attending neurosurgeon Dr. Cevallos see and evaluate the patient alongside me today, and he is willing to offer the patient a repeat right-sided carpal tunnel release. I will send a workload message to our director surgical to book this. We discussed the risks/benefits of surgery including continued pain, continued numbness, continued weakness of the hand. He understands there is risk of nerve/vasculature injury as a result of the surgery. He understands that all surgeries carry the risk of bleeding/infection. He also understands that his symptoms may worsen as a result of complications from the surgery, and wishes to proceed. Jim Cevallos MD,PhD [facility] Coding Level of Care Code Global (14120) Diagnoses S/P cervical spinal fusion Z98.1
== END 2025-02-14 15:23 | disposition home or self-care (01) ==
LOC: HO.HNS 13:33
PROVIDERS: Visit Provider Physician Assistant
DX: Z98.1 Arthrodesis status (principal)
CPT/HCPCS: 99024

== ENCOUNTER → 2025-02-14 13:32 | Outpatient (BNVA) | payer MEDICARE, SELFPAY | PROVIDERS: Visit Provider Physician Assistant | DX: M50.90 Cervical disc disorder, unspecified, unspecified cervical region (principal); Z98.1 Arthrodesis status | CPT/HCPCS: 99212 ==

== ENCOUNTER 2025-02-15 06:56 | Day surgery (SDC) | payer MEDICARE, SELFPAY ==
[2025-02-15 07:06] VITALS: BP 143/76; PULSE 88; RESP 14; TEMP 36.2; O2SAT 100; BMI 33.2
--- NOTE | 2025-02-15 07:07 | MHC.SHP ---
Pre-Procedural Eval Section A - 24 Hr Update-Section A only Date of Service: 02/15/25 The patient is an INPATIENT: No Changes since office visit: No Cold of Flu in the past 2 weeks, No New Medical Problems, No Changes in Medication and No Patient answered all questions The patient has been examined within 24 hours of the surgical procedure. The History & Physical has been completed within 30 days and I have reviewed it.: No Section B - Complete if H&P > 30 days Chief Complaint: Carpal tunnel syndrome, unspecified upper limb Allergies: Allergies Allergy/AdvReac Type Severity Reaction Status Date / Time No Known Allergies Allergy Verified 02/05/25 14:24 Review of Systems Sugical H&P ROS: Negative: Constitution, Cardiovascular, Respiratory, Neurological, Psychiatric, Hem-Onc, Allergic/Immunologic, Gastrointestinal, Genitourinary, Musculoskeletal, Integumentary, Endocrine and Eyes/Ears/Nose/Throat Exam Surgical H&P Exam: Normal: HEENT, Normal: Heart, Normal: Lungs, Normal: Extremities, Normal: Abdomen, Normal: Skin and Normal: Neurological (awake, alert,oreinted x 3 ) Plan Diagnosis/Plan: Unchanged right carpal tunnel release Time Spent With Patient Time: Total time managing care of this patient today ____ minutes.
--- NOTE | 2025-02-15 07:08 | PM.DS ---
DS: Providers Provider Date of Service: 02/15/25 Date of discharge: 02/15/25 Primary care physician: Unknown Physician Admitting clinician: Malik Cevallos DS: Diagnosis Discharge Diagnosis (1) Carpal tunnel syndrome: Status: Acute DS: Summary Time Attestation Discharge Coordination Time (in mins): 4 Quality: Safe Use of Opioids Does Pt have an Active Cancer Diagnosis on the Problem List?: No Quality: Stroke Does the patient have a stroke diagnosis?: No Discharge Plan Discharge Patient Disposition: Home, Self-Care Referrals: Physician,Unknown J [Primary Care Provider, Medical] - 1 Week Discharge Medications: Continued ramipril 5 mg capsule 5 mg PO BEDTIME oxycodone 5 mg tablet 5 mg PO Q4H PRN (Reason: pain) Qty: 20 0RF Rx Instructions: Partial Fill upon patient request. docusate sodium [Colace] 100 mg capsule 100 mg PO BID Qty: 20 0RF Discharge Orders: Discharge Order (Routine); Ordered 02/15/25 Ordered By: Jeremy Olivarez Diet: Advance to usual diet Activity on Discharge: As tolerated Activity Restrictions/Additional Instructions: You may remove your maynor wrap on post op day 3, as well as the dressing underneath it There are sutures in your wound, and you will need these removed 10-14 days after surgery. Please call the office to arrange this visit, You can use your hand as much as you like, however, please avoid straining or heavy lifting It will help swelling in your hand to keep it elevated when you are not using it. You can shower on post op day 1, but please keep wound dry You can drive when you feel comfortable and are off narcotics If you experience any signs of infection such as fever, chills or redness/discharge from your wound,please call office right away Print Language: Tajik
--- NOTE | 2025-02-15 10:07 | P.OP_ITS ---
Operative Note Operative Note Date of Service: 02/15/25 Narrative: Diagnosis: Recurrent Right carpal tunnel syndrome Procedure: redo Right median nerve release Surgeon: Malik Cevallos MD PhD Description procedure: This 79-year-old male had a carpal tunnel release done in 2007. He has recurrent symptoms of a right carpal tunnel syndrome. The patient was offered a decompression of the median nerve. The procedure complications were explained. The patient was consented. The patient was brought to the operating room, where moderate sedation was applied. Prepping and draping was done followed by time-out. Marcaine was injected into the mid volar region. The previous midvolar incision was opened. The ligamentum carpi transversum and scar tissue was opened sharply until the median nerve became visible. A Metzenbaum scissor was used to decompress the median nerve pr oximally and distally over its trajectory. Significant compression was present. Hemostasis was done. The incision was closed with 3 interrupted sutures. A compressive PARTH wrap was used for hemostasis. All sponge and needle counts were correct. Patient was transported to the recovery room. Anesthesia: Moderate sedation and local anesthetic Blood loss: Minimal Complications: None Disposition: Discharge home
== END 2025-02-15 08:07 | disposition home or self-care (01) ==
PROVIDERS: Visit Provider Neurological Surgery
PROC: (CPT 64721; principal; 2025-02-15 07:30)
DX: G56.01 Carpal tunnel syndrome, right upper limb (principal); R20.0 Anesthesia of skin; R20.2 Paresthesia of skin; M19.90 Unspecified osteoarthritis, unspecified site; I12.9 Hypertensive chronic kidney disease with stage 1 through stage 4 chronic kidney disease, or unspecified chronic kidney disease; N18.9 Chronic kidney disease, unspecified; I42.1 Obstructive hypertrophic cardiomyopathy; I35.8 Other nonrheumatic aortic valve disorders; Z96.651 Presence of right artificial knee joint; Z98.890 Other specified postprocedural states; Z90.49 Acquired absence of other specified parts of digestive tract; Z98.1 Arthrodesis status
CPT/HCPCS: 64721; J2003

== ENCOUNTER → 2025-02-15 06:56 | Outpatient (BNV) | payer MEDICARE, SELFPAY | PROVIDERS: Visit Provider Physician Assistant | DX: G56.01 Carpal tunnel syndrome, right upper limb (principal) | CPT/HCPCS: 64721; 99499 ==

== ENCOUNTER 2025-02-26 09:14 | Outpatient (AMB) | payer MEDICARE, SELFPAY ==
--- NOTE | 2025-02-26 09:27 | HO.SPINEOV ---
Intake Visit Reasons: suture removal sx 02/15 Intake Note: Mr. Kelly Conley is here today for suture removal. Emergency Care Tech Required: No Allergies No Known Allergies Allergy (Verified 02/15/25 07:12) Assessment & Plan Assessment & Plan (1) Carpal tunnel syndrome: Code(s): G56.00 - Carpal tunnel syndrome, unspecified upper limb Category: Medical Plan Manuel is a pleasant 79 year old male who comes in today for suture removal after having a right-sided carpal tunnel release completed by Dr. Cevallos on 02/15/25. He also underwent C3-4 ACDF on 01/25/2025. He reports that his right hand symptoms have improved slightly, but he still has quite a bit of tingling in his fingers. He is hopeful that this will continue to improve in the coming weeks. In regards to his the cervical spine, he was initially scheduled to return to work tomorrow, but we will be stopping by his work today to ask for a few more weeks off of work to recover. 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 I agree with this decision, and encouraged him to take more time off of work. We will fill out whatever necessary paperwork he may need. Single suture removed from volar surface of right wrist. Patient tolerated removal well. The patient is able to curl his fingertips to the distal palmar crease without issue. I would like well for him to follow up with us again in 6 weeks for a subsequent visit to ensure that his cervical spine concerns continue to improve, and his right hand sensation/strength continues to improve. Jim Cevallos MD,PhD [facility] Coding Level of Care Code Global (84421) Diagnoses Carpal tunnel syndrome G56.00
--- OUTSIDE RECORDS SUMMARY | 2025-02-26 10:23 | XMS_ITS | Clinical Summary ---
Author Organization [facility] Address [address] [place] [address] Care Team Providers Care Sports Equipment Supervisor Name Role Phone Luisa Otoole DO Poonam [...] Plan (11/09/2024 1:45 PM EDT): Seen at [facility] ER and admitted for abnormal CT concern for septic arthritis left hip, left hospital with 5 day supply of Oxycodone and advised to follow up with Ortho and have IR procedure, left hospital AMA, will request Urgent referral for Ortho at [facility] per patient request and advised to return to the ER with any worsening pain, fever or chills. Continues with Oxycodone for the pain. Abnormal CT scan, pelvis 11/09/2024 Assessment & Plan (11/09/2024 1:42 PM EDT): Admitted to [place] ER and transferred to [facility] ER for back and hip pain, CT scan noted complex fluid collection in the right iliopsoas bursa with concern for septic hip with plan for inpatient IR procedure, WBC were not elevated, BP normal, was not admitted with sepsis, per patient he left AMA. Will request consult with Ortho at [facility] Urgently, discuss with Dr. Solis IR [...] STAGE III (MODERATE, EGFR 30- 59 ML/MIN) ([facility]) WRITTEN ON 07/10/2024 5:21 PM BY POONAM SOLIS V, DO Increasing renal impairement. GFR is 36, Cr baseline ~1.5. Recommend maintaining adequate hydration, avoid nephrotoxic agents. BP is well controlled. Continue ACEi. Referral to funeral home associate. Orders: Microalbumin / creatinine, urine ratio (Lab Collect); Future Basic metabolic panel; Future Hemoglobin A1c; Future PTH, intact; Future Assessment & Plan (09/19/2024 1:11 PM EDT): >>ASSESSMENT AND PLAN FOR BENIGN HYPERTENSION WITH STAGE 3B CHRONIC KIDNEY DISEASE ([facility]) WRITTEN ON 11/25/2023 9:28 AM BY POONAM SOLIS V, DO BP stable. Continue lisinopril 5 mg daily. Low sodium diet and regular exercise reviewed. >>ASSESSMENT AND PLAN FOR KIDNEY DISEASE, CHRONIC, STAGE III (MODERATE, EGFR 30- 59 ML/MIN) ([facility]) WRITTEN ON 11/25/2023 4:18 PM BY POONAM SOLIS V, DO Increasing renal impairement. GFR is 36, Cr baseline ~1.5. Recommend maintaining adequate hydration, avoid nephrotoxic agents. BP is well controlled. Continue ACEi. Referral to funeral home associate. Assessment & Plan (09/19/2024 1:11 PM EDT): >>ASSESSMENT AND PLAN FOR BENIGN HYPERTENSION WITH STAGE 3B CHRONIC KIDNEY DISEASE ([facility]) WRITTEN ON 09/30/2023 9:34 AM BY POONAM SOLIS V, DO BP stable. Continue lisinopril 5 mg daily. Low sodium diet and regular exercise reviewed. >>ASSESSMENT AND PLAN FOR KIDNEY DISEASE, CHRONIC, STAGE III (MODERATE, EGFR 30- 59 ML/MIN) ([facility]) WRITTEN ON 09/30/2023 9:36 AM BY POONAM [...] Type Department Care Team Description 01/11/2025 Telephone [facility] [address] [facility] Family Practice Department [address] [place] [address] Poonam Solis DO Surgery today 01/1112/22/2024 10:00 AM EDT Follow-Up [address] Department [address] [place] [address] Poonam Solis DO Benign hypertension with stage 3b chronic kidney disease (HCC) (Primary Dx); Elevated ferritin level; Prediabetes; Obesity (BMI 30-39.9) 12/22/2024 Results Follow-Up [address] Department [address] [place] [address] Poonam Solis DO from Last 3 Months Immunizations Immunization Administration [...] 0.6 oz pur e alcohol) [facility] Utilities Answer Date Recorded In the past 12 months has [employer], oil, or water company threatened to shut [...] Description 06/01/2025 11:00 AM EST Office Visit [address] Family Practice Department [address] [place] [address] Poonam Solis DO [address] [place] [address] Health Maintenance Due Date Last Done Comments CKD: Referral to Nephrology 1943 Zoster Vaccines (1 of 2) 12/28/1993 RSV Vaccine (60+ years old and patients) (1 - 1-dose 75+ series) 12/28/2018 COVID-19 Vaccine (3 - season) 2025 07/16/2020, 06/25/2020 Influenza Vaccine (#1) 2025 , 03/06/2019, 03/06/2019, Additional history exists Basic Metabolic Panel 04/23/2025 12/22/2024 , 07/10/2024, 11/25/2023, Additional history exists 25 Hydroxy / Vitamin D 07/10/2025 07/10/2024 PTH 07/10/2025 07/10/2024 [facility] Annual Screening 07/10/2025 07/10/2024 Urine Microalbumin 07/10/2025 07/10/2024 Depression Screening and Follow-Up 09/19/2025 09/19/2024 Fall Risk Screening 09/19/2025 09/19/2024 Medicare AWV 09/20/2025 09/19/2024, 05/27/2023 Hemoglobin 12/22/2025 12/22/2024, 06/11, 05/15/2022, Additional history exists Phosphorus 12/22/2025 12/22/2024, 11/25/2023 DTaP,Tdap,and Td Vaccines (3 - Td or Tdap) 09/23/2030 09/23/2020, 10/22/2010 Tobacco Screening 05/10/2042 12/22/2024 Pneumococcal Vaccine: 50+ Years Completed 12/26/2015, 10/22/2010 Health Care Proxy Review Completed 09/19/2024, 05/10 Alcohol/Substance Use Screening Completed 12/22/2024 Hepatitis B Vaccines Aged Out No long er eligible based on patient's age to complete this topic Procedures * Due to [place] state law, this organization might not be [...] A1C Routine 12/22/2024 10:54 AM EDT Prediabetes MICROALBUMIN, RANDOM URINE WITH CREATININE Routine 07/10/2024 12:49 PM EST Hypertension, unspecified type Stage 3b chronic kidney disease VITAMIN D, 25-HYDROXY, TOTAL, IMMUNOASSAY Routine 07/10/2024 11:44 AM EST Vitamin D deficiency PTH, INTACT (WITHOUT CALCIUM) Routine 07/10/2024 11:44 AM EST Hypertension, unspecified type Stage 3b chronic kidney disease from Last 3 Months or Most Recently Relevant to Health Maintenance Results * Due to [place] state law, this organization might not be sharing negative HIV tests. * (ABNORMAL) CBC Auto Differential (12/22/2024 10:54 AM EDT) WBC 7.5 4.8 - 10.8 10*3/uL 12/22/2024 2:09 PM EDT [facility] RBC 3.80(L) 4.70 - 6.10 10*6/uL 12/22/2024 2:09 PM EDT [facility] Hemoglobin 12.3(L) 13.7 - 16.5 g/dL 12/22/2024 2:09 PM EDT [facility] Hematocrit 36.2(L) 40.5 - 48.5 % 12/22/2024 2:09 PM EDT [facility] MCV 95.3(H) 80.0 - 94.0 fL 12/22/2024 2:09 PM EDT [facility] MCH 32.4 26.0 - 34.0 pg 12/22/2024 2:09 PM EDT [facility] MCHC 34.0 31.0 - 36.0 g/dL 12/22/2024 2:09 PM EDT [facility] RDW 13.4 12.0 - 15.0 % 12/22/2024 2:09 PM EDT [facility] RDW Standard Deviation 47.8(H) 35.1 - 43.9 fL 12/22/2024 2:09 PM EDT [facility] Platelets 347 140 - 440 10*3/uL 12/22/2024 2:09 PM EDT [facility] MPV 10.6 9.4 - 12.4 fL 12/22/2024 2:09 PM EDT [facility] Neutrophil % 62.7 50.0 - 75.0 % 12/22/2024 2:09 PM EDT [facility] Immature Grans % 0.3 0.0 - 0.9 % 12/22/2024 2:09 PM EDT [facility] Lymphocyte % 20.6 20.0 - 44.0 % 12/22/2024 2:09 PM EDT [facility] Monocyte % 12.1 0.0 - 14.0 % 12/22/2024 2:09 PM EDT [facility] Eosinophil % 3.8 0.0 - 5.0 % 12/22/2024 2:09 PM EDT [facility] Basophil % 0.5 0.0 - 2.0 % 12/22/2024 2:09 PM EDT [facility] Neutrophil # 4.73 1.80 - 7.70 10*3/uL 12/22/2024 2:09 PM EDT [facility] Immature Grans # <0.03 0.00 - 0.03 10*3/uL 12/22/2024 2:09 PM EDT [facility] Lymphocyte # 1.60 1.00 - 4.75 10*3/uL 12/22/2024 2:09 PM EDT [facility] Monocyte # 0.90(H) 0.00 - 0.60 10*3/uL 12/22/2024 2:09 PM EDT [facility] Eosinophil # 0.30 0.00 - 0.80 10*3/uL 12/22/2024 2:09 PM EDT [facility] Basophil # <0.03 0.00 - 0.20 10*3/uL 12/22/2024 2:09 PM EDT [facility] nRBC % 0.0 0 - 0 /100 WBCs 12/22/2024 2:09 PM EDT [facility] nRBC # <0.01 0.00 - 0.13 10*3/uL 12/22/2024 2:09 PM EDT [facility] Blood Structure of peripheral vein / Unknown Venipuncture / Unknown 12/22/2024 10:54 AM EDT 12/22/2024 1:16 PM EDT us Poonam Immenhausen V, DO LAB BLOOD ORDERABLES Fin al Result Performing Organization Address City/[facility]/ZIP Co de Phone Number [facility] [address] [address], [place] [phone] * Phosphorus (12/22/2024 10:54 AM EDT) Phosphorus 2.5 2.5 - 4.5 mg/dL 12/22/2024 2:46 PM EDT [facility] Blood Structure of peripheral vein / Unknown Venipuncture / Unknown 12/22/2024 10:54 AM EDT 12/22/2024 1:15 PM EDT us Poonam Immenhausen V, DO LAB BLOOD ORDERABLES Fin al Result Performing Organization Address [facility]/ZIP Co de Phone Number [facility] [address] [place] [address], [place] [phone] * (ABNORMAL) Hemoglobin A1c (12/22/2024 10:54 AM EDT) Hemoglobin A1c 6.5(H) 4.0 - 5.7 % 12/22/2024 2:20 PM EDT [facility] Estimated Average Glucose 140 mg/dL 12/22/2024 2:20 PM EDT [facility] Blood Structure of peripheral vein / Unknown Venipuncture / Unknown 12/22/2024 10:54 AM EDT 12/22/2024 1:15 PM EDT us Poonam Solis V, DO LAB BLOOD ORDERABLES Fin al Result [facility] [address] [facility] [address] [place] [address], [place] [phone] * (ABNORMAL) Comprehensive Metabolic Panel (12/22/2024 10:54 AM EDT) NA 139 136 - 145 mmol/L 12/22/2024 2:46 PM EDT [facility] K 4.8 3.5 - 5.1 mmol/L 12/22/2024 2:46 PM EDT [facility] Cl 104 98 - 109 mmol/L 12/22/2024 2:46 PM EDT [facility] CO2 21(L) 22 - 32 mmol/L 12/22/2024 2:46 PM EDT [facility] Anion Gap 19 >=0 12/22/2024 2:46 PM EDT [facility] Glucose 100(H) 60 - 99 mg/dL 12/22/2024 2:46 PM EDT [facility] Creatinine 1.74(H) 0.50 - 1.12 mg/dL 12/22/2024 2:46 PM EDT [facility] Calcium 9.9 8.4 - 10.4 mg/dL 12/22/2024 2:46 PM EDT [facility] Total Protein 7.6 6.6 - 8.7 g/dL 12/22/2024 2:46 PM EDT [facility] Albumin 4.1 3.5 - 5.0 g/dL 12/22/2024 2:46 PM EDT [facility] Bilirubin, Total 0.4 0.2 - 1.2 mg/dL 12/22/2024 2:46 PM EDT [facility] Alkaline Phosphatase 57 40 - 129 U/L 12/22/2024 2:46 PM EDT [facility] AST 25 0 - 40 U/L 12/22/2024 2:46 PM EDT [facility] ALT 15 <=41 U/L 12/22/2024 2:46 PM EDT [facility] BUN 33(H) 8 - 23 mg/dL 12/22/2024 2:46 PM EDT [facility] eGFR 39(L) >=60 mL/min/1. 73m2 12/22/2024 2:46 PM EDT [facility] Comment:The estimated glomer ular filtration [...] - 4.2 g/dL 12/22/2024 2:46 PM EDT [facility] A/G Ratio 1.2(L) 1.5 - 3.0 12/22/2024 2:46 PM EDT [facility] Blood Structure of peripheral vein / Unknown Venipuncture / Unknown 12/22/2024 10:54 AM EDT 12/22/2024 1:15 PM EDT us Poonam Solis V, DO LAB BLOOD ORDERABLES Fin al Result [facility] [address] [place] [address], * (ABNORMAL) Microalbumin / creatinine, urine ratio (Lab Collect) (07/10/2024 12:49 PM EST) Pathologist [facility] Creatinine, Urine 118 mg/dL 07/10/2024 2:59 PM EST [facility] Microalbumin, Urine 372(H) <=20 mg/L 07/10/2024 2:59 PM EST [facility] Microalb/Creat Ratio, Random Urine 315.3(H) 1.3 - 30.0 mg/g 07/10/2024 2:59 PM EST [facility] Comment:Not Performed Urine Urine specimen collection, clean catch / Unknown Non-Blood Collection / Unknown 07/10/2024 12:49 PM EST 07/10/2024 12:49 PM EST Bizzingojerson V, DO LAB URINE ORDERABLES Fin al Result Performing Organization Address [facility] Co de Phone Number [address] [address], [place] [phone] * (ABNORMAL) Vitamin D, 25-Hydroxy, Total, Immunoassay (07/10/2024 11:44 AM EST) [facility] Vitamin D 25-OH 18.30(L) 30.00 - 80.00 ng/mL 07/10/2024 3:40 PM EST [facility] Blood Structure of peripheral vein / Unknown Venipuncture / Unknown 07/10/2024 11:44 AM EST 07/10/2024 12:51 PM EST Bizzingon V, DO LAB BLOOD ORDERABLES Fin al Result Performing Organization Address City/[facility] Co de Phone Number [address] [address], [place] [phone] * (ABNORMAL) PTH, intact (07/10/2024 11:44 AM EST) Pathologist [facility] Parathyroid Hormone, Intact 88.2(H) 14.5 - 87.1 pg/mL 07/10/2024 3:37 PM EST [facility] Comment: This test was performed using the chemiluminescent immunoassay (CLIA) intended for the quantitative determination of intact human parathyroid hormone method on the DIASORed e App LIAISON. Values obtained from different assay methods cannot be used interchangeably. Assay results should be utilized in conjunction with other clinical and laboratory data Blood Structure of peripheral vein / Unknown Venipuncture / Unknown 07/10/2024 11:44 AM EST 07/10/2024 12:51 PM EST us Poonam Solis V, DO LAB BLOOD ORDERABLES Fin al Result [facility] [address] [place] [address], [place] [phone] from Last 3 Months or Most Recently Relevant to Health Maintenance Insurance MEDICARE [facility] MEDICARE [facility] Care Teams Sports Equipment Supervisor Relationship Specialty Start Date End Date Poonam Solis DO [address] [place] [id number] PCP - General Family Medicine 07/07/23
--- OUTSIDE RECORDS SUMMARY | 2025-02-26 10:23 | XMS_ITS | Clinical Summary ---
Author Organization [facility] Address [address] [place] [address] Care Team Providers Care Division Operations Manager Name Role Phone Nazario Silva Primary Care Provider [phone] Allergies No known active allergies Medications * [...] this topic Zoster (Zostavax) Discontinued Care Teams Division Operations Manager Relationship Specialty Start Date End Date Nazario Silva [facility] [place] [address] PCP - General 07/08/09
--- OUTSIDE RECORDS SUMMARY | 2025-02-26 10:23 | XMS_ITS | Encounter Summary ---
Author Organization [facility] Address [address] [place] [address] Care Team Providers Care Clod Puller Name Role Phone Pcp, No Primary Care Provider [phone] Encounter Details Date Type Department Care Team (Late st Contact Info) Description 12/18/2024 Telephone [facility] [address] [place] [address] Geetha Domínguez LPN [address] [place] [address] Social History Tobacco Use Types Packs/Day Years [...] on filedocumented in this encounter Care Teams Clod Puller Relationship Specialty Start Date End Date Pcp, No PCP - General Family Medicine 06/13/24 documented as of this encounter
--- OUTSIDE RECORDS SUMMARY | 2025-02-26 10:23 | XMS_ITS | Clinical Summary ---
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) 12/18/2024 Telephone [facility] [address] [place] [address] Geetha Domínguez LPN from Last 3 Months [...] Screening Reminder: Adriana torres for all adults ([facility]) 12/28/1963 Zoster/Shingles Vaccine Seri es Screening: Adults aged 18+ yrs (or HM Modifiers)([facility]) (1 of 2) 12/28/1993 RSV Vaccines (1 - 1-dose 75+ series) 12/28/2018 Flu Vaccination: Ages 65+: Y early High Dose Recommended (or Modifier)([facility]) 12/08/2024 05/15/2022, 03/06/2019, 02/14/2018, Additional history exists COVID-19 Vaccine Screening: Initial Series and Booster Status ([facility]) ( - 2024- season) 2025 07/16/2020, 06/25/2020 Depression: Screening Annual ly using PHQ-2/9 in Adults 18 yrs or above (or HM Modifier)([facility]) 12/22/2025 12/22/2024 DTaP/Tdap/Td Vaccines ([facility]) (3 - Td or Tdap) 09/23/2030 09/23/2020, 10/22/2010 Pneumococcal Vaccination Screening: Patients 50+ yrs of age ([facility]) Completed 12/26/2015, 10/22/2010 Medical Devices Not on file Procedures Procedure Name Priority Date/Time Associated Diagnosis Comments POCT URINALYSIS DIPSTICK Routine 12/22/2024 3:36 PM EDT 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 Negative [facility] [id number] pH, UA 5.0 4.6 - 8.0 [facility] [id number] Protein, UA Trace [facility] [id number] Urobilinogen, UA Normal [facility] [id number] Nitrite, UA Negative [facility] [id number] Leukocytes, UA Negative CHARL TON [id number] INTERNAL CONTROLS VALID Yes--Test working appropriately [facility] [id number] Expiration Date 01/07/2025 [facility] [id number] Lot Number [id number] [facility] [id number] TEST BRAND NAME _ UA Siemens Multistix 10SG [facility] [id number] Urine 12/22/2024 3:36 PM EDT us Mat Costa NP POINT OF CARE TEST ORDERABLES Fi nal Result [facility] [id number] [address] [facility] [place] [id number], [place] from Last 3 Months Care Teams Corn Husker Relationship Specialty Start Date End Date Pcp, No PCP - General Family Medicine 06/13/24
== END 2025-02-26 09:55 | disposition home or self-care (01) ==
LOC: HO.HNS 09:14
PROVIDERS: Visit Provider Physician Assistant
DX: G56.00 Carpal tunnel syndrome, unspecified upper limb (principal)
CPT/HCPCS: 99024

== ENCOUNTER → 2025-02-26 09:14 | Outpatient (BNVA) | payer MEDICARE, SELFPAY | PROVIDERS: Visit Provider Physician Assistant | DX: Z48.02 Encounter for removal of sutures (principal); G56.01 Carpal tunnel syndrome, right upper limb | CPT/HCPCS: 99212 ==

== ENCOUNTER 2025-03-09 15:43 | Outpatient (REF) | payer MEDICARE, SELFPAY ==
--- OUTSIDE RECORDS SUMMARY | 2025-03-09 15:48 | XMS_ITS | Clinical Summary ---
Author Organization [facility] Address [address] [place] [address] Care Team Providers Care Home Care Associate Name Role Phone Nazario Silva Primary Care Provider [phone] Allergies No known active allergies Medications * [...] this topic Zoster (Zostavax) Discontinued Care Teams Home Care Associate Relationship Specialty Start Date End Date Nazario Silva [facility] [place] [address] PCP - General 07/08/09
--- OUTSIDE RECORDS SUMMARY | 2025-03-09 15:48 | XMS_ITS | Clinical Summary ---
Author Organization [employer] [facility] [employer] 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) 12/18/2024 Telephone [facility] [address] [place] [address] Geetha Domínguez LPN from Last 3 Months [...] Screening Reminder: Adriana torres for all adults ([facility]) 12/28/1963 Zoster/Shingles Vaccine Seri es Screening: Adults aged 18+ yrs (or HM Modifiers)([facility]) (1 of 2) 12/28/1993 RSV Vaccines (1 - 1-dose 75+ series) 12/28/2018 Flu Vaccination: Ages 65+: Y early High Dose Recommended (or Modifier)([facility]) 12/08/2024 05/15/2022, 03/06/2019, 02/14/2018, Additional history exists COVID-19 Vaccine Screening: Initial Series and Booster Status ([facility]) ( - 2024- season) 2025 07/16/2020, 06/25/2020 Depression: Screening Annual ly using PHQ-2/9 in Adults 18 yrs or above (or HM Modifier)([facility]) 12/22/2025 12/22/2024 DTaP/Tdap/Td Vaccines ([facility]) (3 - Td or Tdap) 09/23/2030 09/23/2020, 10/22/2010 Pneumococcal Vaccination Screening: Patients 50+ yrs of age ([facility]) Completed 12/26/2015, 10/22/2010 Medical Devices Not on file Procedures Procedure Name Priority Date/Time Associated Diagnosis Comments POCT URINALYSIS DIPSTICK Routine 12/22/2024 3:36 PM EDT 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 Negative [facility] [id number] pH, UA 5.0 4.6 - 8.0 [facility] [id number] Protein, UA Trace [facility] [id number] Urobilinogen, UA Normal [facility] [id number] Nitrite, UA Negative [facility] [id number] Leukocytes, UA Negative CHARL TON [id number] INTERNAL CONTROLS VALID Yes--Test working appropriately [facility] [id number] Expiration Date 01/07/2025 [facility] [id number] Lot Number [id number] [facility] [id number] TEST BRAND NAME _ UA Siemens Multistix 10SG TRU[facility]I [id number] Urine 12/22/2024 3:36 PM EDT us Mat Costa NP POINT OF CARE TEST ORDERABLES Fi nal Result [facility] [id number] [address] [facility] [place] [address], [place] from Last 3 Months Care Teams Sports Equipment Supervisor Relationship Specialty Start Date End Date Pcp, No PCP - General Family Medicine 06/13/24
--- OUTSIDE RECORDS SUMMARY | 2025-03-09 15:48 | XMS_ITS | Clinical Summary ---
Author Organization [facility] Address [address] [place] [address] Care Team Providers Care Plating Tank Operator Apprentice Name Role Phone Luisa Otoole DO Poonam [...] Plan (11/09/2024 1:45 PM EDT): Seen at [facility] ER and admitted for abnormal CT concern for septic arthritis left hip, left hospital with 5 day supply of Oxycodone and advised to follow up with Ortho and have IR procedure, left hospital AMA, will request Urgent referral for Ortho at [facility] per patient request and advised to return to the ER with any worsening pain, fever or chills. Continues with Oxycodone for the pain. Abnormal CT scan, pelvis 11/09/2024 Assessment & Plan (11/09/2024 1:42 PM EDT): Admitted to [place] ER and transferred to [facility] ER for back and hip pain, CT scan noted complex fluid collection in the right iliopsoas bursa with concern for septic hip with plan for inpatient IR procedure, WBC were not elevated, BP normal, was not admitted with sepsis, per patient he left AMA. Will request consult with Ortho at [facility] Urgently, discuss with Dr. Solis IR [...] III (MODERATE, EGFR 30- 59 ML/MIN) ([facility]) WRITTEN ON 07/10/2024 5:21 PM BY POONAM SOLIS V, DO Increasing renal impairement. GFR is 36, Cr baseline ~1.5. Recommend maintaining adequate hydration, avoid nephrotoxic agents. BP is well controlled. Continue ACEi. Referral to embedded systems engineer. Orders: Microalbumin / creatinine, urine ratio (Lab Collect); Future Basic metabolic panel; Future Hemoglobin A1c; Future PTH, intact; Future Assessment & Plan (09/19/2024 1:11 PM EDT): >>ASSESSMENT AND PLAN FOR BENIGN HYPERTENSION WITH STAGE 3B CHRONIC KIDNEY DISEASE ([facility]) WRITTEN ON 11/25/2023 9:28 AM BY POONAM SOLIS V, DO BP stable. Continue lisinopril 5 mg daily. Low sodium diet and regular exercise reviewed. >>ASSESSMENT AND PLAN FOR KIDNEY DISEASE, CHRONIC, STAGE III (MODERATE, EGFR 30- 59 ML/MIN) ([facility]) WRITTEN ON 11/25/2023 4:18 PM BY POONAM SOLIS V, DO Increasing renal impairement. GFR is 36, Cr baseline ~1.5. Recommend maintaining adequate hydration, avoid nephrotoxic agents. BP is well controlled. Continue ACEi. Referral to embedded systems engineer. Assessment & Plan (09/19/2024 1:11 PM EDT): >>ASSESSMENT AND PLAN FOR BENIGN HYPERTENSION WITH STAGE 3B CHRONIC KIDNEY DISEASE ([facility]) WRITTEN ON 09/30/2023 9:34 AM BY POONAM SOLIS V, DO BP stable. Continue lisinopril 5 mg daily. Low sodium diet and regular exercise reviewed. >>ASSESSMENT AND PLAN FOR KIDNEY DISEASE, CHRONIC, STAGE III (MODERATE, EGFR 30- 59 ML/MIN) ([facility]) WRITTEN ON 09/30/2023 9:36 AM BY [...] Type Department Care Team Description 01/11/2025 Telephone [facility] [address] [facility] Family Practice Department [address] [place] [id number] Poonam Solis DO Surgery today 01/1112/22/2024 10:00 AM EDT Follow-Up [address] Department [address] [place] [id number] Poonam Solis DO Benign hypertension with stage 3b chronic kidney disease (HCC) (Primary Dx); Elevated ferritin level; Prediabetes; Obesity (BMI 30-39.9) 12/22/2024 Results Follow-Up [address] Department [address] [place] [id number] Poonam Solis DO from Last 3 Months [...] drink = 0.6 oz pur e alcohol) [facility] Utilities Answer Date Recorded In the past 12 months has [employer], oil, or water company threatened to shut [...] Description 06/01/2025 11:00 AM EST Office Visit [address] Family Practice Department [address] [place] [id number] Poonam Solis DO [address] [place] [address] Health Maintenance Due Date Last Done Comments [...] Vitamin D 07/10/2025 07/10/2024 PTH 07/10/2025 07/10/2024 [employer] Annual Screening 07/10/2025 07/10/2024 Urine [...] complete this topic Procedures * Due to [place] state law, this organization might not be [...] to Health Maintenance Results * Due to [place] state law, this organization might not be sharing negative HIV tests. * (ABNORMAL) CBC Auto Differential (12/22/2024 10:54 AM EDT) WBC 7.5 4.8 - 10.8 10*3/uL 12/22/2024 2:09 PM EDT [facility] RBC 3.80(L) 4.70 - 6.10 10*6/uL 12/22/2024 2:09 PM EDT [facility] Hemoglobin 12.3(L) 13.7 - 16.5 g/dL 12/22/2024 2:09 PM EDT [facility] Hematocrit 36.2(L) 40.5 - 48.5 % 12/22/2024 2:09 PM EDT [facility] MCV 95.3(H) 80.0 - 94.0 fL 12/22/2024 2:09 PM EDT [facility] MCH 32.4 26.0 - 34.0 pg 12/22/2024 2:09 PM EDT [facility] MCHC 34.0 31.0 - 36.0 g/dL 12/22/2024 2:09 PM EDT [facility] RDW 13.4 12.0 - 15.0 % 12/22/2024 2:09 PM EDT [facility] RDW Standard Deviation 47.8(H) 35.1 - 43.9 fL 12/22/2024 2:09 PM EDT [facility] Platelets 347 140 - 440 10*3/uL 12/22/2024 2:09 PM EDT [facility] MPV 10.6 9.4 - 12.4 fL 12/22/2024 2:09 PM EDT [facility] Neutrophil % 62.7 50.0 - 75.0 % 12/22/2024 2:09 PM EDT [facility] Immature Grans % 0.3 0.0 - 0.9 % 12/22/2024 2:09 PM EDT [facility] Lymphocyte % 20.6 20.0 - 44.0 % 12/22/2024 2:09 PM EDT [facility] Monocyte % 12.1 0.0 - 14.0 % 12/22/2024 2:09 PM EDT [facility] Eosinophil % 3.8 0.0 - 5.0 % 12/22/2024 2:09 PM EDT [facility] Basophil % 0.5 0.0 - 2.0 % 12/22/2024 2:09 PM EDT [facility] Neutrophil # 4.73 1.80 - 7.70 10*3/uL 12/22/2024 2:09 PM EDT [facility] Immature Grans # <0.03 0.00 - 0.03 10*3/uL 12/22/2024 2:09 PM EDT [facility] Lymphocyte # 1.60 1.00 - 4.75 10*3/uL 12/22/2024 2:09 PM EDT [facility] Monocyte # 0.90(H) 0.00 - 0.60 10*3/uL 12/22/2024 2:09 PM EDT [facility] Eosinophil # 0.30 0.00 - 0.80 10*3/uL 12/22/2024 2:09 PM EDT [facility] Basophil # <0.03 0.00 - 0.20 10*3/uL 12/22/2024 2:09 PM EDT [facility] nRBC % 0.0 0 - 0 /100 WBCs 12/22/2024 2:09 PM EDT [facility] nRBC # <0.01 0.00 - 0.13 10*3/uL 12/22/2024 2:09 PM EDT [facility] Blood Structure of peripheral vein / Unknown Venipuncture / Unknown 12/22/2024 10:54 AM EDT 12/22/2024 1:16 PM EDT us Poonam Immenhausen V, DO LAB BLOOD ORDERABLES Fin al Result Performing Organization Address City/[facility]/ZIP Co de Phone Number [facility] [address] [address], [place] [phone] * Phosphorus (12/22/2024 10:54 AM EDT) Phosphorus 2.5 2.5 - 4.5 mg/dL 12/22/2024 2:46 PM EDT [facility] Blood Structure of peripheral vein / Unknown Venipuncture / Unknown 12/22/2024 10:54 AM EDT 12/22/2024 1:15 PM EDT us Poonam Immenhausen V, DO LAB BLOOD ORDERABLES Fin al Result Performing Organization Address [facility]/ZIP Co de Phone Number [facility] [address] [place] [address], [place] [phone] * (ABNORMAL) Hemoglobin A1c (12/22/2024 10:54 AM EDT) Hemoglobin A1c 6.5(H) 4.0 - 5.7 % 12/22/2024 2:20 PM EDT [facility] Estimated Average Glucose 140 mg/dL 12/22/2024 2:20 PM EDT [facility] Blood Structure of peripheral vein / Unknown Venipuncture / Unknown 12/22/2024 10:54 AM EDT 12/22/2024 1:15 PM EDT us Poonam Solis V, DO LAB BLOOD ORDERABLES Fin al Result [facility] [address] [facility] [address] [place] [address], [place] [phone] * (ABNORMAL) Comprehensive Metabolic Panel (12/22/2024 10:54 AM EDT) NA 139 136 - 145 mmol/L 12/22/2024 2:46 PM EDT [facility] K 4.8 3.5 - 5.1 mmol/L 12/22/2024 2:46 PM EDT [facility] Cl 104 98 - 109 mmol/L 12/22/2024 2:46 PM EDT [facility] CO2 21(L) 22 - 32 mmol/L 12/22/2024 2:46 PM EDT [facility] Anion Gap 19 >=0 12/22/2024 2:46 PM EDT [facility] Glucose 100(H) 60 - 99 mg/dL 12/22/2024 2:46 PM EDT [facility] Creatinine 1.74(H) 0.50 - 1.12 mg/dL 12/22/2024 2:46 PM EDT [facility] Calcium 9.9 8.4 - 10.4 mg/dL 12/22/2024 2:46 PM EDT [facility] Total Protein 7.6 6.6 - 8.7 g/dL 12/22/2024 2:46 PM EDT [facility] Albumin 4.1 3.5 - 5.0 g/dL 12/22/2024 2:46 PM EDT [facility] Bilirubin, Total 0.4 0.2 - 1.2 mg/dL 12/22/2024 2:46 PM EDT [facility] Alkaline Phosphatase 57 40 - 129 U/L 12/22/2024 2:46 PM EDT [facility] AST 25 0 - 40 U/L 12/22/2024 2:46 PM EDT [facility] ALT 15 <=41 U/L 12/22/2024 2:46 PM EDT [facility] BUN 33(H) 8 - 23 mg/dL 12/22/2024 2:46 PM EDT [facility] eGFR 39(L) >=60 mL/min/1. 73m2 12/22/2024 2:46 PM EDT [facility] Comment:The estimated glomer ular filtration [...] - 4.2 g/dL 12/22/2024 2:46 PM EDT [facility] A/G Ratio 1.2(L) 1.5 - 3.0 12/22/2024 2:46 PM EDT [facility] Blood Structure of peripheral vein / Unknown Venipuncture / Unknown 12/22/2024 10:54 AM EDT 12/22/2024 1:15 PM EDT us Poonam Solis V, DO LAB BLOOD ORDERABLES Fin al Result [facility] [address] [place] [address], * (ABNORMAL) Microalbumin / creatinine, urine ratio (Lab Collect) (07/10/2024 12:49 PM EST) Pathologist [facility] Creatinine, Urine 118 mg/dL 07/10/2024 2:59 PM EST [facility] Microalbumin, Urine 372(H) <=20 mg/L 07/10/2024 2:59 PM EST [facility] Microalb/Creat Ratio, Random Urine 315.3(H) 1.3 - 30.0 mg/g 07/10/2024 2:59 PM EST [facility] Comment:Not Performed Urine Urine specimen collection, clean catch / Unknown Non-Blood Collection / Unknown 07/10/2024 12:49 PM EST 07/10/2024 12:49 PM EST makrjerson V, DO LAB URINE ORDERABLES Fin al Result Performing Organization Address [facility] Co de Phone Number [address] [address], [place] [phone] * (ABNORMAL) Vitamin D, 25-Hydroxy, Total, Immunoassay (07/10/2024 11:44 AM EST) [facility] Vitamin D 25-OH 18.30(L) 30.00 - 80.00 ng/mL 07/10/2024 3:40 PM EST [facility] Blood Structure of peripheral vein / Unknown Venipuncture / Unknown 07/10/2024 11:44 AM EST 07/10/2024 12:51 PM EST makrn V, DO LAB BLOOD ORDERABLES Fin al Result Performing Organization Address City/[facility] Co de Phone Number [address] [address], [place] [phone] * (ABNORMAL) PTH, intact (07/10/2024 11:44 AM EST) Pathologist [facility] Parathyroid Hormone, Intact 88.2(H) 14.5 - 87.1 pg/mL 07/10/2024 3:37 PM EST [facility] Comment: This test was performed using the chemiluminescent immunoassay (CLIA) intended for the quantitative determination of intact human parathyroid hormone method on the [employer] L[employer]. Values obtained from different assay methods cannot be used interchangeably. Assay results should be utilized in conjunction with other clinical and laboratory data Blood Structure of peripheral vein / Unknown Venipuncture / Unknown 07/10/2024 11:44 AM EST 07/10/2024 12:51 PM EST us Poonam Solis V, DO LAB BLOOD ORDERABLES Fin al Result [facility] [address] [place] [address], [place] [phone] from Last 3 Months or Most Recently Relevant to Health Maintenance Insurance [facility] Care Teams Plating Tank Operator Apprentice Relationship Specialty Start Date End Date Poonam Solis DO [address] [place] [id number] PCP - General Family Medicine 07/07/23
--- OUTSIDE RECORDS SUMMARY | 2025-03-09 15:48 | XMS_ITS | Encounter Summary ---
Author Organization [facility] Address [address] [place] [address] Care Team Providers Care Sr Technical Sales Consultant Name Role Phone Pcp, No Primary Care Provider Encounter Details Date Type Department Care Team (Late st Contact Info) Description 12/18/2024 Telephone [facility] [address] [place] [address] Geetha Domínguez LPN [address] [place] [address] Social History Tobacco Use Types Packs/Day Years [...] on filedocumented in this encounter Care Teams Sr Technical Sales Consultant Relationship Specialty Start Date End Date Pcp, No PCP - General Family Medicine 06/13/24 documented as of this encounter
== END 2025-03-09 15:44 | disposition home or self-care (01) ==
LOC: HO.HOSX 15:43
PROVIDERS: Visit Provider Physician Assistant
DX: Z13.89 Encounter for screening for other disorder (principal)

== ENCOUNTER 2025-03-12 13:26 | Outpatient (REF) | payer MEDICARE, SELFPAY ==
--- NOTE | ~2025-03-12 | XR_ITS ---
EXAMINATION: XR CERVICAL SPINE CLINICAL INFORMATION: M47.12 - Other spondylosis with myelopathy, cervical region COMPARISON: 02/05/2025, 10/27/2024. TECHNIQUE: 4 views of the cervical spine were obtained, including flexion and extension views. FINDINGS: There is a mild reversal of the normal lordosis. There is a minimal right convex scoliosis. There has been prior anterior fusion at C3-4, C4-5, and C5-6 with associated fusion devices and discectomies. Hardware appears intact, well seated, without periprosthetic lucency or other complication. There is no fracture, compression deformity, or suspicious bone lesion. The craniocervical junction, and C1-2 articulation are intact and aligned. Neutral view demonstrates a trace degenerative anterolisthesis of C3 on C4, and trace retrolisthesis of C4 on C5 and C5 on C6. There is no evidence of developing subluxation on flexion or extension views. Nonoperative disc levels demonstrate mild degeneration. Facets are normally aligned. There are multilevel bilateral hypertrophic degenerative facet changes. There is no prevertebral soft tissue abnormality. Imaged lung apices are clear. XR/XR cervical spine 4V IMPRESSION: 1. No acute bony or soft tissue abnormalities of the cervical spine. Moderate cervical spondylosis, stable from the prior exam. 2. Anterior fusion of C3-4, C4-5, and C5-6 without evidence of hardware complication or loosening. 3. No evidence of instability on flexion and extension views. Electronically signed by: Jamarcus Saunders MD 03/12/2025 01:51 PM [facility]
== END 2025-03-12 13:27 | disposition home or self-care (01) ==
LOC: HO.HOSX 13:26
PROVIDERS: Visit Provider Physician Assistant
DX: M47.12 Other spondylosis with myelopathy, cervical region (principal); Z98.1 Arthrodesis status
CPT/HCPCS: 72050; 99212

== ENCOUNTER → 2025-03-12 13:27 | Outpatient (BNV) | payer MEDICARE, SELFPAY | PROVIDERS: Visit Provider Radiology Diagnostic Radiology | DX: M47.12 Other spondylosis with myelopathy, cervical region (principal) | CPT/HCPCS: 72050 ==

== ENCOUNTER 2025-03-12 13:44 | Outpatient (AMB) | payer MEDICARE, SELFPAY ==
--- NOTE | 2025-03-12 13:48 | HO.SPINEOV ---
Intake Visit Reasons: intense pain on the right side of his neck Intake Note: Mr. Kelly Conley is here today c/o intense pain on the right side of his neck. Hemodialysis Lab Technician Required: No Allergies No Known Allergies Allergy (Verified 02/15/25 07:12) Assessment & Plan Assessment & Plan (1) S/P cervical spinal fusion: Code(s): Z98.1 - Arthrodesis status Category: Medical Plan Mr Mendoza came back today in follow-up. He was having severe neck pain along the right side of his trapezius radiating down into his biceps reason and also up to the right side of his head. He gets it about once a day but about 3 or 4 days ago it was quite severe. He called the office so I told him to come check in. Today's doing fine. He drove himself here to the office with no problems. He was doing some outside activities few days ago and noticed a little bit of pain so we stopped. Nothing is keeping him from doing what he wants to do but he was just concerned about the symptoms. On exam he looks comfortable. No focal deficits. His incision in the anterior part of his neck and in his right palm area with a carpal tunnel incision was. His x-rays show that the hardware at C3-4 is stable in the exact position that it was left in the operating room with a plate slightly proud, but the screws adequately into the vertebral body. There is no change in motion with flexion or extension. I reassured him that this could be just an after effect of having a 3rd ACDF and there maybe some pain that comes along with movement of his neck that will aggravate some of the discs above and below but that I do not think it needs to be worked up more unless the pain starts to become more frequent than once a day. He understands and will let me know if something changes. Jeremy Cevallos MD, PhD [facility] Orders: Orders XR cervical spine 4V Today AMOR Mora M47.12 - Other spondylosis with myelopathy, cervical region, Z98.1 - Arthrodesis status XR cervical spine 4V Today AMOR Hernandez Z98.1 - Arthrodesis status Coding Level of Care Code Global (68576) Diagnoses S/P cervical spinal fusion Z98.1
== END 2025-03-12 14:06 | disposition home or self-care (01) ==
LOC: HO.HNS 13:45
PROVIDERS: Visit Provider Physician Assistant
DX: Z98.1 Arthrodesis status (principal)
CPT/HCPCS: 99024

== ENCOUNTER 2025-04-09 11:15 | Outpatient (AMB) | payer MEDICARE, SELFPAY ==
--- NOTE | 2025-04-09 10:53 | HO.SPINEOV ---
Intake Visit Reasons: 2nd post op Intake Note: Mr. Mendoza is here today for his 2nd post op. Endbander Required: No Allergies No Known Allergies Allergy (Verified 02/15/25 07:12) Assessment & Plan Assessment & Plan (1) S/P cervical spinal fusion: Code(s): Z98.1 - Arthrodesis status Category: Surgical (2) S/P carpal tunnel release: Code(s): Z98.890 - Other specified postprocedural states Category: Surgical Plan Procedure: C3-4 ACDF, Right carpal tunnel release Manuel comes in today for his second postoperative visit after having right sided carpal tunnel release completed 02/25, and C3-4 ACDF completed 01/25. He was last seen in clinic as an acute add on visit after calling the clinic reporting continued neck pain and right arm issues. Thankfully by the time he came in for his last visit on 03/12/25 it sounds like his symptoms had largely resolved based on previous documentation. It sounds like he has remained fairly active since his last visit based on what he tells me today in clinic. 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 He also felled a tree on his property recently and states it fell and hit him in the right shoulder. He does not attribute the pain he is describing today to this. He does extensively express his frustration with this continued pain during this visit, which he states has been a constant daily problem since his surgery. I attempted to discuss his last office visit with him where he said that overall he is doing fairly well, however he reports that he still had continued numbness and pain during his previous visit which has only became worse. Overall he had a fairly difficult time recounting his history, and would often provide answers that did not directly address the questions that I asked. For example I asked what his daily pain is at baseline, and he said it is about a 3/10 with flare-ups up to 8 or 9/10. I then attempted to ask him where he has this pain and he began telling me everywhere that he has numbness. I again asked him to show me where he has pain and he again began discussing the numbness in his 2nd and 3rd fingers on the right hand side. As far as I can tell it sounds like the numbness and pain are connected. When describing this he states it starts near his 2nd and 3rd fingers on the right hand side and describes it as traveling up the volar surface of his arm toward his right shoulder / neck. He also reports a pins and needles feeling that will start near his right shoulder and travel into his biceps. He also has begun experiencing pins and needles near his left hand, which he reports is new since surgery. 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 He is now scheduled to return on 05/10/25. No new neurological deficits. The patient ambulates well and rises from a seated position without difficulty. He uses no assistive devices to ambulate. Anterior cervical and right volar wrist incisions are closed and well healed. His bilateral hand mechanist strength is about 4/5, in the rest of his bilateral upper extremity strength is 5/5. (-) Matute's, (-) clonus. Toward the conclusion of this visit the patient asked to have a follow up visit with Dr. Cevallos so he can be told definitively if this is how he is going to remain for the rest of his life for if another surgical intervention is warranted to address his symptoms. I encouraged him to stop with the commercial front load driver on his way out and make an appointment for follow up with Dr. Cevallos. I think he should be evaluated by my attending neurosurgeon prior to ordering subsequent imaging/diagnostic studies. Jim Cevallos MD,PhD [facility] Coding Level of Care Code Global (54905) Diagnoses S/P cervical spinal fusion Z98.1 S/P carpal tunnel release Z98.890
--- OUTSIDE RECORDS SUMMARY | 2025-04-09 14:45 | XMS_ITS | Clinical Summary ---
Author Organization [facility] [employer] [facility] [facility] Address [address] [facility] [place] [address] Care Team Providers Care Stump Shooter Name Role Phone Pcp, No Primary Care Provider [phone] Allergies No known active allergies Medications ramipriL [...] Screening Reminder: Adriana torres for all adults ([facility]) 12/28/1963 Zoster/Shingles Vaccine Seri es Screening: Adults aged 18+ yrs (or HM Modifiers)([facility]) (1 of 2) 12/28/1993 RSV Vaccines (1 - 1-dose 75+ series) 12/28/2018 Flu Vaccination: Ages 65+: Y early High Dose Recommended (or Modifier)([facility]) 12/08/2024 05/15/2022, 03/06/2019, 02/14/2018, Additional history exists COVID-19 Vaccine Screening: Initial Series and Booster Status ([facility]) (2024- season) 2025 07/16/2020, 06/25/2020 Depression: Screening Annual ly using PHQ-2/9 in Adults 18 yrs or above (or HM Modifier)([facility]) 12/22/2025 12/22/2024 DTaP/Tdap/Td Vaccines ([facility]) (3 - Td or Tdap) 09/23/2030 09/23/2020, 10/22/2010 Pneumococcal Vaccination Screening: Patients 50+ yrs of age ([facility]) Completed 12/26/2015, 10/22/2010 Medical Devices Not on file Care Teams Stump Shooter Relationship Specialty Start Date End Date Pcp, No PCP - General Family Medicine 06/13/24
--- OUTSIDE RECORDS SUMMARY | 2025-04-09 14:45 | XMS_ITS | Encounter Summary ---
Author Organization [facility] Address [address] [place] [address] Care Team Providers Care Sighter Name Role Phone Pcp, No Primary Care Provider [phone] Encounter Details Date Type Department Care Team (Late st Contact Info) Description 12/18/2024 Telephone [facility] [address] [place] [address] Geetha Domínguez LPN [address] [place] [address] Social History Tobacco Use Types Packs/Day Years [...] on filedocumented in this encounter Care Teams Sighter Relationship Specialty Start Date End Date Pcp, No PCP - General Family Medicine 06/13/24 documented as of this encounter
--- OUTSIDE RECORDS SUMMARY | 2025-04-09 14:45 | XMS_ITS | Clinical Summary ---
Author Organization [facility] Address [address] [place] [address] Care Team Providers Care Geophysical Party Chief Name Role Phone Luisa Otoole DO Poonam [...] Plan (11/09/2024 1:45 PM EDT): Seen at [facility] ER and admitted for abnormal CT concern for septic arthritis left hip, left hospital with 5 day supply of Oxycodone and advised to follow up with Ortho and have IR procedure, left hospital AMA, will request Urgent referral for Ortho at [facility] per patient request and advised to return to the ER with any worsening pain, fever or chills. Continues with Oxycodone for the pain. Abnormal CT scan, pelvis 11/09/2024 Assessment & Plan (11/09/2024 1:42 PM EDT): Admitted to [facility] ER and transferred to [facility] ER for back and hip pain, CT scan noted complex fluid collection in the right iliopsoas bursa with concern for septic hip with plan for inpatient IR procedure, WBC were not elevated, BP normal, was not admitted with sepsis, per patient he left AMA. Will request consult with Ortho at [facility] Urgently, discuss with Dr. Solis IR [...] (MODERATE, EGFR 30- 59 ML/MIN) ([facility]) WRITTEN ON 07/10/2024 5:21 PM BY POONAM SOLIS V, DO Increasing renal impairement. GFR is 36, Cr baseline ~1.5. Recommend maintaining adequate hydration, avoid nephrotoxic agents. BP is well controlled. Continue ACEi. Referral to surveyor instrument assistant. Orders: Microalbumin / creatinine, urine ratio (Lab Collect); Future Basic metabolic panel; Future Hemoglobin A1c; Future PTH, intact; Future Assessment & Plan (09/19/2024 1:11 PM EDT): >>ASSESSMENT AND PLAN FOR BENIGN HYPERTENSION WITH STAGE 3B CHRONIC KIDNEY DISEASE ([facility]) WRITTEN ON 11/25/2023 9:28 AM BY POONAM SOLIS V, DO BP stable. Continue lisinopril 5 mg daily. Low sodium diet and regular exercise reviewed. >>ASSESSMENT AND PLAN FOR KIDNEY DISEASE, CHRONIC, STAGE III (MODERATE, EGFR 30- 59 ML/MIN) ([facility]) WRITTEN ON 11/25/2023 4:18 PM BY POONAM SOLIS V, DO Increasing renal impairement. GFR is 36, Cr baseline ~1.5. Recommend maintaining adequate hydration, avoid nephrotoxic agents. BP is well controlled. Continue ACEi. Referral to surveyor instrument assistant. Assessment & Plan (09/19/2024 1:11 PM EDT): >>ASSESSMENT AND PLAN FOR BENIGN HYPERTENSION WITH STAGE 3B CHRONIC KIDNEY DISEASE ([facility]) WRITTEN ON 09/30/2023 9:34 AM BY POONAM SOLIS V, DO BP stable. Continue lisinopril 5 mg daily. Low sodium diet and regular exercise reviewed. >>ASSESSMENT AND PLAN FOR KIDNEY DISEASE, CHRONIC, STAGE III (MODERATE, EGFR 30- 59 ML/MIN) ([facility]) WRITTEN ON 09/30/2023 9:36 AM BY [...] Type Department Care Team Description 01/11/2025 Telephone [facility] Family Practice Department [address] [place] [id number] Poonam Solis V, DO Surgery today 01/11 from Last 3 Months Immunizations Immunization Administration [...] drink = 0.6 oz pur e alcohol) [facility] Utilities Answer Date Recorded In the past 12 months has th e [employer], gas, oil, or water [employer] threatened to shut off services in your [...] Description 06/01/2025 11:00 AM EST Office Visit [address] Family Practice Department [address] [place] [id number] Poonam Solis V, [address] [place] [id number] Health Maintenance Due Date Last Done Comments CKD: Referral to Nephrology 1945 Zoster Vaccines (1 of 2) 12/28/1993 RSV Vaccine (60+ years old and patients) (1 - 1-dose 75+ series) 12/28/2018 Influenza Vaccine (#1) 2024 , 03/06/2019, 03/06/2019, Additional history exists COVID-19 Vaccine ( - season) 2025 07/16/2020, 06/25/2020 Basic Metabolic Panel 04/23/2025 12/22/2024 , 07/10/2024, 11/25/2023, Additional history exists 25 Hydroxy / Vitamin D 07/10/2025 07/10/2024 PTH 07/10/2025 07/10/2024 [employer] Drivers of Health Annual Screening 07/10/2025 07/10/2024 [...] complete this topic Procedures * Due to [place] state law, this organization might not be sharing negative HIV tests. Procedure Name Priority Date/Time Associated Diagnosis Comments CBC AUTO DIFFERENTIAL Routine 12/22/2024 10:54 AM EDT Elevated ferritin level PHOSPHORUS Routine 12/22/2024 10:54 AM EDT Benign hypertension with stage 3b chronic kidney disease (HCC) COMPREHENSIVE METABOLIC PANEL Routine 12/22/2024 10:54 AM EDT Benign hypertension with stage 3b chronic kidney disease (HCC) MICROALBUMIN, RANDOM URINE WITH CREATININE Routine 07/10/2024 12:49 PM EST Hypertension, unspecified type Stage 3b chronic kidney disease VITAMIN D, 25-HYDROXY, TOTAL, IMMUNOASSAY Routine 07/10/2024 11:44 AM EST Vitamin D deficiency PTH, INTACT (WITHOUT CALCIUM) Routine 07/10/2024 11:44 AM EST Hypertension, unspecified type Stage 3b chronic kidney disease from Last 3 Months or Most Recently Relevant to Health Maintenance Results * Due to [place] state law, this organization might not be sharing negative HIV tests. * (ABNORMAL) CBC Auto Differential (12/22/2024 10:54 AM EDT) WBC 7.5 4.8 - 10.8 10*3/uL 12/22/2024 2:09 PM EDT [facility] RBC 3.80(L) 4.70 - 6.10 10*6/uL 12/22/2024 2:09 PM EDT [facility] Hemoglobin 12.3(L) 13.7 - 16.5 g/dL 12/22/2024 2:09 PM EDT [facility] Hematocrit 36.2(L) 40.5 - 48.5 % 12/22/2024 2:09 PM EDT [facility] MCV 95.3(H) 80.0 - 94.0 fL 12/22/2024 2:09 PM EDT [facility] MCH 32.4 26.0 - 34.0 pg 12/22/2024 2:09 PM EDT [facility] MCHC 34.0 31.0 - 36.0 g/dL 12/22/2024 2:09 PM EDT [facility] RDW 13.4 12.0 - 15.0 % 12/22/2024 2:09 PM EDT [facility] RDW Standard Deviation 47.8(H) 35.1 - 43.9 fL 12/22/2024 2:09 PM EDT [facility] Platelets 347 140 - 440 10*3/uL 12/22/2024 2:09 PM EDT [facility] MPV 10.6 9.4 - 12.4 fL 12/22/2024 2:09 PM EDT [facility] Neutrophil % 62.7 50.0 - 75.0 % 12/22/2024 2:09 PM EDT [facility] Immature Grans % 0.3 0.0 - 0.9 % 12/22/2024 2:09 PM EDT [facility] Lymphocyte % 20.6 20.0 - 44.0 % 12/22/2024 2:09 PM EDT [facility] Monocyte % 12.1 0.0 - 14.0 % 12/22/2024 2:09 PM EDT [facility] Eosinophil % 3.8 0.0 - 5.0 % 12/22/2024 2:09 PM EDT [facility] Basophil % 0.5 0.0 - 2.0 % 12/22/2024 2:09 PM EDT [facility] Neutrophil # 4.73 1.80 - 7.70 10*3/uL 12/22/2024 2:09 PM EDT [facility] Immature Grans # <0.03 0.00 - 0.03 10*3/uL 12/22/2024 2:09 PM EDT [facility] Lymphocyte # 1.60 1.00 - 4.75 10*3/uL 12/22/2024 2:09 PM EDT [facility] Monocyte # 0.90(H) 0.00 - 0.60 10*3/uL 12/22/2024 2:09 PM EDT [facility] Eosinophil # 0.30 0.00 - 0.80 10*3/uL 12/22/2024 2:09 PM EDT [facility] Basophil # <0.03 0.00 - 0.20 10*3/uL 12/22/2024 2:09 PM EDT [facility] nRBC % 0.0 0 - 0 /100 WBCs 12/22/2024 2:09 PM EDT [facility] nRBC # <0.01 0.00 - 0.13 10*3/uL 12/22/2024 2:09 PM EDT [facility] Blood Structure of peripheral vein / Unknown Venipuncture / Unknown 12/22/2024 10:54 AM EDT 12/22/2024 1:16 PM EDT us Poonam SeatMeenhausen V, DO LAB BLOOD ORDERABLES Fin al Result Performing Organization Address [facility] Co de Phone Number [facility] [address] [address], [place] [phone] * Phosphorus (12/22/2024 10:54 AM EDT) Phosphorus 2.5 2.5 - 4.5 mg/dL 12/22/2024 2:46 PM EDT [facility] Blood Structure of peripheral vein / Unknown Venipuncture / Unknown 12/22/2024 10:54 AM EDT 12/22/2024 1:15 PM EDT us Poonam Immenhausen V, DO LAB BLOOD ORDERABLES Fin al Result Performing Organization Address [facility] de Phone Number [facility] [address] [address], [place] [phone] * (ABNORMAL) Comprehensive Metabolic Panel (12/22/2024 10:54 AM EDT) NA 139 136 - 145 mmol/L 12/22/2024 2:46 PM EDT [facility] K 4.8 3.5 - 5.1 mmol/L 12/22/2024 2:46 PM EDT [facility] Cl 104 98 - 109 mmol/L 12/22/2024 2:46 PM EDT [facility] CO2 21(L) 22 - 32 mmol/L 12/22/2024 2:46 PM EDT [facility] Anion Gap 19 >=0 12/22/2024 2:46 PM EDT [facility] Glucose 100(H) 60 - 99 mg/dL 12/22/2024 2:46 PM EDT [facility] Creatinine 1.74(H) 0.50 - 1.12 mg/dL 12/22/2024 2:46 PM EDT [facility] Calcium 9.9 8.4 - 10.4 mg/dL 12/22/2024 2:46 PM EDT [facility] Total Protein 7.6 6.6 - 8.7 g/dL 12/22/2024 2:46 PM EDT [facility] Albumin 4.1 3.5 - 5.0 g/dL 12/22/2024 2:46 PM EDT [facility] Bilirubin, Total 0.4 0.2 - 1.2 mg/dL 12/22/2024 2:46 PM EDT [facility] Alkaline Phosphatase 57 40 - 129 U/L 12/22/2024 2:46 PM EDT [facility] AST 25 0 - 40 U/L 12/22/2024 2:46 PM EDT [facility] ALT 15 <=41 U/L 12/22/2024 2:46 PM EDT [facility] BUN 33(H) 8 - 23 mg/dL 12/22/2024 2:46 PM T [facility] eGFR 39(L) >=60 mL/min/1. 73m2 12/22/2024 2:46 PM T [facility] Comment:The estimated glomer ular [...] 2.1 - 4.2 g/dL 12/22/2024 2:46 PM T [facility] A/G Ratio 1.2(L) 1.5 - 3.0 12/22/2024 2:46 PM T [facility] Blood Structure of peripheral vein / Unknown Venipuncture / Unknown 12/22/2024 10:54 AM EDT 12/22/2024 1:15 PM EDT Poonam Franklinn V, DO LAB BLOOD ORDERABLES Fin al Result [facility] [address] [address], [place] [phone] * (ABNORMAL) Microalbumin / creatinine, urine ratio (Lab Collect) (07/10/2024 12:49 PM EST) Creatinine, Urine 118 mg/dL 07/10/2024 2:59 PM EST [facility] Microalbumin, Urine 372(H) <=20 mg/L 07/10/2024 2:59 PM EST [facility] Microalb/Creat Ratio, Random Urine 315.3(H) 1.3 - 30.0 mg/g 07/10/2024 2:59 PM EST [facility] Comment:Not Performed Urine Urine specimen collection, clean catch / Unknown Non-Blood Collection / Unknown 07/10/2024 12:49 PM EST 07/10/2024 12:49 PM EST Poonam Franklinn V, DO LAB URINE ORDERABLES Fin al Result Performing Organization Address City/[facility]/ZIP Co de Phone Number [facility] [address] [address], [place] [phone] * (ABNORMAL) Vitamin D, 25-Hydroxy, Total, Immunoassay (07/10/2024 11:44 AM EST) Vitamin D 25-OH 18.30(L) 30.00 - 80.00 ng/mL 07/10/2024 3:40 PM EST [facility] Blood Structure of peripheral vein / Unknown Venipuncture / Unknown 07/10/2024 11:44 AM EST 07/10/2024 12:51 PM EST Poonam Immenhausen V, DO LAB BLOOD ORDERABLES Fin al Result Performing Organization Address [facility] Co de Phone Number [facility] [address] [address], [place] [phone] * (ABNORMAL) PTH, intact (07/10/2024 11:44 AM EST) Parathyroid Hormone, Intact 88.2(H) 14.5 - 87.1 pg/mL 07/10/2024 3:37 PM EST [facility] Comment: This test was performed using the chemiluminescent immunoassay (CLIA) intended for the quantitative determination of intact human parathyroid hormone method on the [employer]. Values obtained from different assay methods cannot be used interchangeably. Assay results should be utilized in conjunction with other clinical and laboratory data Blood Structure of peripheral vein / Unknown Venipuncture / Unknown 07/10/2024 11:44 AM EST 07/10/2024 12:51 PM EST Poonam Immenhausen V, DO LAB BLOOD ORDERABLES Fin al Result Performing Organization Address [facility] Co de Phone Number [facility] [address] [address], [place] [phone] from Last 3 Months or Most Recently Relevant to Health Maintenance Insurance MEDICARE [facility] MEDICARE [facility] AAR Care Teams Geophysical Party Chief Relationship Specialty Start Date End Date Poonam Solis DO [address] [place] [id number] PCP - General Family Medicine 07/07/23
--- OUTSIDE RECORDS SUMMARY | 2025-04-09 14:45 | XMS_ITS | Clinical Summary ---
Author Organization [facility] Address [address] [place] [address] Care Team Providers Care Filter Tank Tender Helper Name Role Phone Nazario Silva Primary Care Provider [phone] Allergies No known active allergies Medications * [...] this topic Zoster (Zostavax) Discontinued Care Teams Filter Tank Tender Helper Relationship Specialty Start Date End Date Nazario Silva [facility] [place] [address] PCP - General 07/08/09
== END 2025-04-09 12:05 | disposition home or self-care (01) ==
LOC: HO.HNS 11:16
PROVIDERS: Visit Provider Physician Assistant
DX: Z98.1 Arthrodesis status (principal); Z98.890 Other specified postprocedural states
CPT/HCPCS: 99024

== ENCOUNTER → 2025-04-09 11:15 | Outpatient (BNVA) | payer MEDICARE, SELFPAY | PROVIDERS: Visit Provider Physician Assistant | DX: Z47.89 Encounter for other orthopedic aftercare (principal); Z98.1 Arthrodesis status | CPT/HCPCS: 99212 ==

== ENCOUNTER 2025-04-13 13:45 | Outpatient (AMB) | payer MEDICARE, SELFPAY ==
--- NOTE | 2025-04-13 14:33 | A.SPINEOV_ITS ---
Intake Visit Reasons: Re evaluation Intake Note: Mr. Mendoza is here today for a Re evaluation. Box Covering Machine Operator Required: No Allergies No Known Allergies Allergy (Verified 04/13/25 14:34) Assessment & Plan Assessment & Plan (1) S/P cervical spinal fusion: Code(s): Z98.1 - Arthrodesis status Category: Medical Plan Dear colleague, On 09/18/2024 I saw for follow-up Manuel Mendoza to address some concerns he is having. As you know, he underwent an anterior diskectomy and fusion C3-C4 in January to address an anterolisthesis C3-C4 causing myelopathy. The continuous symptoms improved. He remained complaining of numbness of his 1st 2 digits on the right side therefore I did a redo carpal tunnel syndrome in February which did not help. He comes in discussing intermittent symptoms he has. Specifically, his right arm goes numb when he is behind a computer in a flexed position. He also has intermittent tingling in the right chest and shoulder region and right upper arm. This can come and go without precipitating factors. He also experiences intermittent mild numbness of his left distal arm but these symptoms are weight less than the right side. He denies neck pain. On exam, there are no symptoms of cervical myelopathy. There is hypoesthesia of digits 1 and 2 on the right side. I reviewed the dynamic cervical x-rays obtained postoperatively and compared them to the preoperative imaging. The anterolisthesis is completely reduced. There are no signs of instability, which is compatible with his clinical history of no neck pain. Currently, I do not see any signs of instability that could explain his intermittent symptoms. We will keep a close eye on the construct. I told the patient that it may take up to a year to get a solid fusion. I would like to follow-up with him in 3 months with a repeat x-ray. He will return to the office if there is a significant deterioration in his symptoms. He is allowed to return to work and he is allowed to undergo a hip replacement. I spent 30 minutes in his consult discussing imaging and answering questions. Malik Cevallos MD, PhD Spine Fellowship Trained Neurosurgeon Director, [facility] Coding Level of Care Code Est Pt Level 4 (87601) Diagnoses S/P cervical spinal fusion Z98.1
--- OUTSIDE RECORDS SUMMARY | 2025-04-13 17:59 | XMS_ITS | Clinical Summary ---
Author Organization [facility] Address [address] [place] [address] Care Team Providers Care Gold Buyer Name Role Phone Nazario Silva Primary Care Provider [phone] Allergies No known active allergies Medications * [...] this topic Zoster (Zostavax) Discontinued Care Teams Gold Buyer Relationship Specialty Start Date End Date Nazario Silva [facility] [place] [address] PCP - General 07/08/09
--- OUTSIDE RECORDS SUMMARY | 2025-04-13 17:59 | XMS_ITS | Encounter Summary ---
Author Organization [facility] Address [address] [place] [address] Care Team Providers Care Residence Hall Director Name Role Phone Pcp, No Primary Care Provider [phone] Encounter Details Date Type Department Care Team (Late st Contact Info) Description 12/18/2024 Telephone [facility] [id number] [place] [address] Geetha Domínguez LPN [address] [place] [address] Social History Tobacco Use Types Packs/Day Years [...] on filedocumented in this encounter Care Teams Residence Hall Director Relationship Specialty Start Date End Date Pcp, No PCP - General Family Medicine 06/13/24 documented as of this encounter
--- OUTSIDE RECORDS SUMMARY | 2025-04-13 17:59 | XMS_ITS | Clinical Summary ---
Author Organization [facility] Address [address] [place] [address] Care Team Providers Care Landscape Management Technician Name Role Phone Luisa Otoole DO Poonam [...] Plan (11/09/2024 1:45 PM EDT): Seen at [facility] ER and admitted for abnormal CT concern for septic arthritis left hip, left hospital with 5 day supply of Oxycodone and advised to follow up with Ortho and have IR procedure, left hospital AMA, will request Urgent referral for Ortho at [facility] per patient request and advised to return to the ER with any worsening pain, fever or chills. Continues with Oxycodone for the pain. Abnormal CT scan, pelvis 11/09/2024 Assessment & Plan (11/09/2024 1:42 PM EDT): Admitted to [facility] ER and transferred to [facility] ER for back and hip pain, CT scan noted complex fluid collection in the right iliopsoas bursa with concern for septic hip with plan for inpatient IR procedure, WBC were not elevated, BP normal, was not admitted with sepsis, per patient he left AMA. Will request consult with Ortho at [facility] Urgently, discuss with Dr. Solis IR [...] STAGE III (MODERATE, EGFR 30- 59 ML/MIN) ([facility]) WRITTEN ON 07/10/2024 5:21 PM BY POONAM SOLIS V, DO Increasing renal impairement. GFR is 36, Cr baseline ~1.5. Recommend maintaining adequate hydration, avoid nephrotoxic agents. BP is well controlled. Continue ACEi. Referral to cardboard cutter. Orders: Microalbumin / creatinine, urine ratio (Lab Collect); Future Basic metabolic panel; Future Hemoglobin A1c; Future PTH, intact; Future Assessment & Plan (09/19/2024 1:11 PM EDT): >>ASSESSMENT AND PLAN FOR BENIGN HYPERTENSION WITH STAGE 3B CHRONIC KIDNEY DISEASE ([facility]) WRITTEN ON 11/25/2023 9:28 AM BY POONAM SOLIS V, DO BP stable. Continue lisinopril 5 mg daily. Low sodium diet and regular exercise reviewed. >>ASSESSMENT AND PLAN FOR KIDNEY DISEASE, CHRONIC, STAGE III (MODERATE, EGFR 30- 59 ML/MIN) ([facility]) WRITTEN ON 11/25/2023 4:18 PM BY POONAM SOLIS V, DO Increasing renal impairement. GFR is 36, Cr baseline ~1.5. Recommend maintaining adequate hydration, avoid nephrotoxic agents. BP is well controlled. Continue ACEi. Referral to cardboard cutter. Assessment & Plan (09/19/2024 1:11 PM EDT): >>ASSESSMENT AND PLAN FOR BENIGN HYPERTENSION WITH STAGE 3B CHRONIC KIDNEY DISEASE ([facility]) WRITTEN ON 09/30/2023 9:34 AM BY POONAM SOLIS V, DO BP stable. Continue lisinopril 5 mg daily. Low sodium diet and regular exercise reviewed. >>ASSESSMENT AND PLAN FOR KIDNEY DISEASE, CHRONIC, STAGE III (MODERATE, EGFR 30- 59 ML/MIN) ([facility]) WRITTEN ON 09/30/2023 9:36 AM BY [...] drink = 0.6 oz pur e alcohol) [facility] Utilities Answer Date Recorded In the past [...] Description 06/01/2025 11:00 AM EST Office Visit [address] Family Practice Department [address] [place] [id number] Poonam Solis V, [address] [place] [address] Health Maintenance Due Date Last Done Comments CKD: Referral to Nephrology 1945 Zoster Vaccines (1 of 2) 12/28/1993 RSV Vaccine (60+ years old and patients) (1 - 1-dose 75+ series) 12/28/2018 Influenza Vaccine (#1) 2024 , 03/06/2019, 03/06/2019, Additional history exists COVID-19 Vaccine ( season) 2025 07/16/2020, 06/25/2020 Basic Metabolic Panel [...] complete this topic Procedures * Due to [place] [email or web address] law, this organization might not be sharing [...] to Health Maintenance Results * Due to [place] [email or web address] law, this organization might not be sharing negative HIV tests. * (ABNORMAL) CBC Auto Differential (12/22/2024 10:54 AM EDT) WBC 7.5 4.8 - 10.8 10*3/uL 12/22/2024 2:09 PM EDT [facility] RBC 3.80(L) 4.70 - 6.10 10*6/uL 12/22/2024 2:09 PM EDT [facility] Hemoglobin 12.3(L) 13.7 - 16.5 g/dL 12/22/2024 2:09 PM EDT [facility] Hematocrit 36.2(L) 40.5 - 48.5 % 12/22/2024 2:09 PM EDT [facility] MCV 95.3(H) 80.0 - 94.0 fL 12/22/2024 2:09 PM EDT [facility] MCH 32.4 26.0 - 34.0 pg 12/22/2024 2:09 PM EDT [facility] MCHC 34.0 31.0 - 36.0 g/dL 12/22/2024 2:09 PM EDT [facility] RDW 13.4 12.0 - 15.0 % 12/22/2024 2:09 PM EDT [facility] RDW Standard Deviation 47.8(H) 35.1 - 43.9 fL 12/22/2024 2:09 PM EDT [facility] Platelets 347 140 - 440 10*3/uL 12/22/2024 2:09 PM EDT [facility] MPV 10.6 9.4 - 12.4 fL 12/22/2024 2:09 PM EDT [facility] Neutrophil % 62.7 50.0 - 75.0 % 12/22/2024 2:09 PM EDT [facility] Immature Grans % 0.3 0.0 - 0.9 % 12/22/2024 2:09 PM EDT [facility] Lymphocyte % 20.6 20.0 - 44.0 % 12/22/2024 2:09 PM EDT [facility] Monocyte % 12.1 0.0 - 14.0 % 12/22/2024 2:09 PM EDT [facility] Eosinophil % 3.8 0.0 - 5.0 % 12/22/2024 2:09 PM EDT [facility] Basophil % 0.5 0.0 - 2.0 % 12/22/2024 2:09 PM EDT [facility] Neutrophil # 4.73 1.80 - 7.70 10*3/uL 12/22/2024 2:09 PM EDT [facility] Immature Grans # <0.03 0.00 - 0.03 10*3/uL 12/22/2024 2:09 PM EDT [facility] Lymphocyte # 1.60 1.00 - 4.75 10*3/uL 12/22/2024 2:09 PM EDT [facility] Monocyte # 0.90(H) 0.00 - 0.60 10*3/uL 12/22/2024 2:09 PM EDT [facility] Eosinophil # 0.30 0.00 - 0.80 10*3/uL 12/22/2024 2:09 PM EDT [facility] Basophil # <0.03 0.00 - 0.20 10*3/uL 12/22/2024 2:09 PM EDT [facility] nRBC % 0.0 0 - 0 /100 WBCs 12/22/2024 2:09 PM EDT [facility] nRBC # <0.01 0.00 - 0.13 10*3/uL 12/22/2024 2:09 PM EDT [facility] Blood Structure of peripheral vein / Unknown Venipuncture / Unknown 12/22/2024 10:54 AM EDT 12/22/2024 1:16 PM EDT us Poonam Solis V, DO LAB BLOOD ORDERABLES Fin al Result Performing Organization Address City/State/[facility] Co de Phone Number [facility] [address] [place] [address], [place] [phone] * Phosphorus (12/22/2024 10:54 AM EDT) Phosphorus 2.5 2.5 - 4.5 mg/dL 12/22/2024 2:46 PM EDT [facility] Blood Structure of peripheral vein / Unknown Venipuncture / Unknown 12/22/2024 10:54 AM EDT 12/22/2024 1:15 PM EDT us Poonam Immenhausen V, DO LAB BLOOD ORDERABLES Fin al Result [facility] [address] [address], [place] [phone] * (ABNORMAL) Comprehensive Metabolic Panel (12/22/2024 10:54 AM EDT) NA 139 136 - 145 mmol/L 12/22/2024 2:46 PM EDT [facility] K 4.8 3.5 - 5.1 mmol/L 12/22/2024 2:46 PM EDT [facility] Cl 104 98 - 109 mmol/L 12/22/2024 2:46 PM EDT [facility] CO2 21(L) 22 - 32 mmol/L 12/22/2024 2:46 PM EDT [facility] Anion Gap 19 >=0 12/22/2024 2:46 PM EDT [facility] Glucose 100(H) 60 - 99 mg/dL 12/22/2024 2:46 PM EDT [facility] Creatinine 1.74(H) 0.50 - 1.12 mg/dL 12/22/2024 2:46 PM EDT [facility] Calcium 9.9 8.4 - 10.4 mg/dL 12/22/2024 2:46 PM EDT [facility] Total Protein 7.6 6.6 - 8.7 g/dL 12/22/2024 2:46 PM EDT [facility] Albumin 4.1 3.5 - 5.0 g/dL 12/22/2024 2:46 PM EDT [facility] Bilirubin, Total 0.4 0.2 - 1.2 mg/dL 12/22/2024 2:46 PM EDT [facility] Alkaline Phosphatase 57 40 - 129 U/L 12/22/2024 2:46 PM EDT [facility] AST 25 0 - 40 U/L 12/22/2024 2:46 PM EDT [facility] ALT 15 <=41 U/L 12/22/2024 2:46 PM EDT [facility] BUN 33(H) 8 - 23 mg/dL 12/22/2024 2:46 PM EDT [facility] eGFR 39(L) >=60 mL/min/1. 73m2 12/22/2024 2:46 PM EDT [facility] Comment:The estimated glomer ular filtration [...] - 4.2 g/dL 12/22/2024 2:46 PM EDT [facility] A/G Ratio 1.2(L) 1.5 - 3.0 12/22/2024 2:46 PM EDT [facility] Blood Structure of peripheral vein / Unknown Venipuncture / Unknown 12/22/2024 10:54 AM EDT 12/22/2024 1:15 PM EDT us Poonam Solis V, LAB BLOOD ORDERABLES Fin al Result [facility] [address] [address], [place] [phone] * (ABNORMAL) Microalbumin / creatinine, urine ratio (Lab Collect) (07/10/2024 12:49 PM EST) Creatinine, Urine 118 mg/dL 07/10/2024 2:59 PM EST [facility] Microalbumin, Urine 372(H) <=20 mg/L 07/10/2024 2:59 PM EST [facility] Microalb/Creat Ratio, Random Urine 315.3(H) 1.3 - 30.0 mg/g 07/10/2024 2:59 PM EST [facility] Comment:Not Performed Urine Urine specimen collection, clean catch / Unknown Non-Blood Collection / Unknown 07/10/2024 12:49 PM EST 07/10/2024 12:49 PM EST Zentactn V, DO LAB URINE ORDERABLES Fin al Result Performing Organization Address [facility] Co de Phone Number [facility] [address] [address], [place] [phone] * (ABNORMAL) Vitamin D, 25-Hydroxy, Total, Immunoassay (07/10/2024 11:44 AM EST) Vitamin D 25-OH 18.30(L) 30.00 - 80.00 ng/mL 07/10/2024 3:40 PM EST [facility] Blood Structure of peripheral vein / Unknown Venipuncture / Unknown 07/10/2024 11:44 AM EST 07/10/2024 12:51 PM EST Poonambry Franklinn V, DO LAB BLOOD ORDERABLES Fin al Result Performing Organization Address [facility] Co de Phone Number [facility] [address] [address], [place] [phone] * (ABNORMAL) PTH, intact (07/10/2024 11:44 AM EST) Parathyroid Hormone, Intact 88.2(H) 14.5 - 87.1 pg/mL 07/10/2024 3:37 PM EST [facility] Comment: This test was performed [...] AM EST 07/10/2024 12:51 PM EST Poonam Otoole DO LAB BLOOD ORDERABLES Fin al Result [facility] [address] [facility] [place] [address] [place] [address], from Last 3 Months or Most Recently Relevant to Health Maintenance Insurance [facility] MED[facility] Care Teams Landscape Management Technician Relationship Specialty Start Date End Date Poonam Solis DO [address] [place] [id number] PCP - General Family Medicine 07/07/23
--- OUTSIDE RECORDS SUMMARY | 2025-04-13 17:59 | XMS_ITS | Clinical Summary ---
Author Organization [facility] [employer] [facility] Address [address] [facility] [email or web address] [address] Care Team Providers Care Pole Maker Name Role Phone Pcp, No Primary Care Provider [phone] Allergies No known active allergies Medications ramipriL [...] Screening Reminder: Adriana torres for all adults ([facility]) 12/28/1963 Zoster/Shingles Vaccine Seri es Screening: Adults aged 18+ yrs (or HM Modifiers)([facility]) (1 of 2) 12/28/1993 RSV Vaccines (1 - 1-dose 75+ series) 12/28/2018 Flu Vaccination: Ages 65+: Y early High Dose Recommended (or Modifier)([facility]) 12/08/2024 05/15/2022, 03/06/2019, 02/14/2018, Additional history exists COVID-19 Vaccine Screening: Initial Series and Booster Status ([facility]) (2024- season) 2025 07/16/2020, 06/25/2020 Depression: Screening Annual ly using PHQ-2/9 in Adults 18 yrs or above (or HM Modifier)([facility]) 12/22/2025 12/22/2024 DTaP/Tdap/Td Vaccines ([facility]) (3 - Td or Tdap) 09/23/2030 09/23/2020, 10/22/2010 Pneumococcal Vaccination Screening: Patients 50+ yrs of age ([facility]) Completed 12/26/2015, 10/22/2010 Medical Devices Not on file Care Teams Pole Maker Relationship Specialty Start Date End Date Pcp, No PCP - General Family Medicine 06/13/24
== END 2025-04-13 15:12 | disposition home or self-care (01) ==
LOC: HO.HNS 13:46
PROVIDERS: Visit Provider Neurological Surgery
DX: Z98.1 Arthrodesis status (principal)
CPT/HCPCS: 99024

== ENCOUNTER → 2025-04-13 13:45 | Outpatient (BNVA) | payer MEDICARE, SELFPAY | PROVIDERS: Visit Provider Neurological Surgery | DX: Z98.1 Arthrodesis status (principal) | CPT/HCPCS: 99212 ==